=== PATIENT | female | born 1975 | race Two or more races ===

== ENCOUNTER 2020-03-16 13:29 | Emergency (ER) | payer MEDICAID, SELFPAY ==
[2020-03-16 14:10] VITALS: BP 139/85; PULSE 92; RESP 16; TEMP 36.6; O2SAT 99; BMI 48.2
--- NOTE | 2020-03-16 14:29 | ED.DENTAL ---
HPI - Dental/Oral General Chief complaint: Dental/Oral Stated complaint: dental pain Time Seen by Provider: 03/16/20 14:29 History of Present Illness HPI Narrative: Patient complains of pain at the site of a dental extraction of 2 teeth 1 week ago and pain continues, no fever no difficulty swallowing no difficulty breathing The pain is moderate Related Data Previous Rx's Medication Instructions Recorded clindamycin HCl 300 mg PO Q6H 7 Days #28 cap 03/16/20 oxycodone-acetaminophen [Percocet] 1 - 2 tab PO Q6H PRN #14 tab 03/16/20 Allergies Allergy/AdvReac Type Severity Reaction Status Date / Time No Known Allergies Allergy Unverified 01/19/20 18:58 [No Known Allergies*] Review of Systems Review of Systems: Review of system is positive for dental pain and swelling There is no difficulty breathing no difficulty swallowing no swelling under the tongue no fever no chills no rash Yes all other systems are reviewed and are negative PMFSH Past Medical History Source: nursing notes reviewed Medical History (Updated 03/16/20 @ 14:31 by SADE Mccauley) FH: cholecystectomy HTN (hypertension) Kidney anomaly, congenital Surgical History (Updated 03/16/20 @ 14:15 by Perla Zambrano) Previous section Social History Social History Advance Directives: Yes Advance Directives Information Provided: No Advance Directives on File: No Physical Exam Vital Signs: Vital Signs: Last Vital Signs Temp 97.8 F 03/16/20 14:10 Pulse 92 03/16/20 14:10 Resp 16 03/16/20 14:10 BP 139/85 03/16/20 14:10 Pulse Ox 99 03/16/20 14:10 Body Mass Index 48.2 Patient A&O x3, no acute distress The oral exam there is no trismus there is no impairment of breathing and swallowing there is no drooling there are sutures in place in the left lower gum where 2 teeth were extracted there is mild swelling it is very tender, there is no swelling or tenderness under the tongue there is no area of fluctuance on the gum no visible abscess there is normal range of motion of the mandible The neck is supple No acute respiratory distress Extremities full range of motion x4 Neuro no focal deficit Course Course Course Narrative: Patient continues to have pain and some swelling a week after extraction I changed her antibiotic to clindamycin but advised her that she may need further dental imaging and evaluation to make sure there is no abscess or tooth fragments that could be causing this pain Discharge Plan Discharge Clinical Impression: Pain, dental Patient Disposition: Home, Self-Care Additional Instructions: We are trying a different antibiotic clindamycin You may need to follow with the dentist for further evaluation, at times if pain continues there may be a piece of tooth left under the gum and you may need repeat dental x-rays, so follow with her dentist Return to the ER any time for worse pain and swelling, fever, difficulty swallowing or breathing or any worse condition or any concerns Prescriptions: New clindamycin HCl 300 mg capsule 300 mg PO Q6H 7 Days Qty: 28 RF: 0 oxycodone-acetaminophen [Percocet] 5-325 mg tablet 1 - 2 tab PO Q6H PRN (Reason: pain) Qty: 14 RF: 0 Interventions: ED Discharge Assessment Last Done: 03/16/20 14:49 Discharge Date/Time: 03/16/20 14:45
== END 2020-03-16 14:45 | disposition home or self-care (01) ==
PROVIDERS: Emergency Provider Emergency Medicine
DX: K08.89 Other specified disorders of teeth and supporting structures (principal); I10 Essential (primary) hypertension; Z79.899 Other long term (current) drug therapy
CPT/HCPCS: 99282; 99283

== ENCOUNTER 2020-06-19 09:26 | Outpatient (REF) | payer MEDICAID, SELFPAY ==
[2020-06-19 14:18] LABS: Anion Gap 12 (12-20); Blood Urea Nitrogen 8 mg/dL (9-16); Calcium 8.7 mg/dL (8.4-10.2); Carbon Dioxide 24 mmol/L (22-29); Chloride 106 mmol/L (96-108); Estimated Glomerular Filt Rate > 60; Potassium 4.3 mmol/L (3.3-5.1); Sodium 138 mmol/L (135-145)
[2020-06-19 14:25] LABS: Creatinine Urine 170.79 mg/dL; Microalbum/Creatinine Ratio Ur 21.6 ug/mg cr
[2020-06-19 14:47] LABS: Renal w Reflex Lab Use Only Order verified
[2020-06-19 14:56] LABS: Phosphorus 3.1 mg/dL (2.7-4.5)
== END 2020-06-19 09:27 | disposition home or self-care (01) ==
LOC: HO.10HDL 09:26
PROVIDERS: Visit Provider Internal Medicine Nephrology
DX: I10 Essential (primary) hypertension (principal); R80.9 Proteinuria, unspecified; Q60.0 Renal agenesis, unilateral
CPT/HCPCS: 36415; 80051; 82043; 82310; 82565; 84100; 84520

== ENCOUNTER 2021-04-16 10:57 | Outpatient (REF) | payer MEDICAID, SELFPAY ==
--- NOTE | ~2021-04-16 | MM_ITS ---
EXAMINATION: MM SCREENING DIGITAL BREAST TOMOSYNTHESIS, BILATERAL CLINICAL INFORMATION: Screening. Asymptomatic. The lifetime risk of breast cancer based on the Tyrer-Cuzick Model is 13%. COMPARISON: Mammography: 11/30/2019, 09/15/2018, 09/04/2017; bilateral breast ultrasound 07/23/2015. TECHNIQUE: Digital breast tomosynthesis is performed in both the craniocaudal and mediolateral oblique views along with computer-aided detection (CAD). Synthesized 2D images are generated from the tomosynthesis. FINDINGS: There are scattered areas of fibroglandular density (ACR BI-RADS breast composition Category b). Parenchymal pattern is similar to prior studies. There is fine fibronodular pattern with scattered stable nodularity. There are 2 stable circumscribed masses mid lower inner and mid central 9:00 left breast. There is no developing density. No abnormal calcifications. The axilla and skin contours are unremarkable. MM/MM tomosynthesis screening BI IMPRESSION: No significant changes from prior exams. ASSESSMENT: BI-RADS 2: Benign RECOMMENDATION: Routine annual mammography screening. This patient's information was entered into a reminder system with a target due date for their next mammogram.
== END 2021-04-16 10:58 | disposition home or self-care (01) ==
LOC: HO.MAMMO 10:57
PROVIDERS: PCP Internal Medicine; Visit Provider Internal Medicine
DX: Z12.31 Encounter for screening mammogram for malignant neoplasm of breast (principal)
CPT/HCPCS: 77063; 77067

== ENCOUNTER 2021-05-30 12:19 | Emergency (ER) | payer MEDICAID, SELFPAY ==
[2021-05-30 12:35] VITALS: BP 135/69; PULSE 78; RESP 18; TEMP 36.8; O2SAT 100
[2021-05-30 12:44] VITALS: BMI 49.9
[2021-05-30 13:08] LABS: MANUAL DIFF FLAG NO
[2021-05-30 13:10] LABS: Appearance Urine CLEAR; Color Urine STRAW; Glucose Urine UA NEG (NEG); Leukocyte Esterase Urine NEG (NEG); Nitrite Urine NEG (NEG); Urine Blood NEG (NEG); Urine Ketones NEG (NEG); Urine Protein NEG (NEG-TRACE)
[2021-05-30 13:17] LABS: Basophils Percent Auto 0.4 % (0-2); Eosinophils Absolute Auto 0.1 X10*3/uL (0.0-0.4); Hematocrit 39.1 % (37.0-47.0); Hemoglobin 13.1 g/dl (12.0-16.0); Imm Gran Abs Auto 0.03 X10*3/uL (0.00-0.03); Imm Gran Pct Auto 0.3 % (0.0-0.4); Lymphocytes Absolute Auto 2.5 X10*3/uL (1.2-4.9); Lymphocytes Percent Auto 26.4 % (20-40); Mean Corpuscular HGB Conc 33.5 g/dl (31.0-35.0); Mean Corpuscular Hemoglobin 28.8 pg (27.0-33.0); Mean Corpuscular Volume 85.9 fL (80.0-98.0); Mean Platelet Volume 9.5 fL (9.4-12.3); Monocytes Absolute Auto 0.7 X10*3/uL (0.1-1.2); Monocytes Percent Auto 7.4 % (2-11); Neutrophils Absolute Auto 6.1 x10*3/uL (2.0-8.3); Neutrophils Percent Auto 64.5 % (45-73); Platelet Count 281 X10*3/uL (160-400); Red Blood Count 4.55 X10*6/uL (4.20-5.50); Red Cell Distribution Width 13.2 % (11.0-16.0); White Blood Count 9.4 X10*3/uL (4.8-10.8)
[2021-05-30 13:28] LABS: Alanine Aminotransferase 25 U/L (0-31); Albumin Level 4.1 g/dL (3.5-5.0); Alkaline Phosphatase 90 U/L (39-117); Anion Gap 13 (12-20); Aspartate Amino Transferase 19 U/L (5-31); Bilirubin Total 0.4 mg/dL (0.0-1.0); Blood Urea Nitrogen 14 mg/dL (9-16); Carbon Dioxide 22 mmol/L (22-29); Chloride 105 mmol/L (96-108); Creatinine Clr Calc Pharmacy 115.8; Estimated Glomerular Filt Rate > 60; Glucose Random 94 mg/dL (60-115); Potassium 4.1 mmol/L (3.3-5.1); Sodium 136 mmol/L (135-145); Total Protein 7.7 g/dL (6.5-8.0)
--- NOTE | 2021-05-30 15:19 | ED_ITS ---
HPI - General Adult General Chief complaint: Back Pain/Injury Stated complaint: back pain Time Seen by Provider: 05/30/21 15:09 Source: patient Mode of arrival: ambulatory Limitations: no limitations History of Present Illness HPI narrative: Patient comes to emergency room complaining of bilateral lower back pain. Patient states he has had multiple episodes in the past, at this time patient has no pain, patient denies dysuria or hematuria. Patient denies any recent injuries, no falls. Patient denies fever chills. Related Data Previous Rx's Medication Instructions Recorded clindamycin HCl 300 mg capsule 300 mg PO Q6H 7 Days #28 cap 03/16/20 oxycodone-acetaminophen 5 mg-325 1 - 2 tab PO Q6H PRN #14 tab 03/16/20 mg tablet (Percocet) cyclobenzaprine 5 mg tablet 5 mg PO TID PRN #10 tab 05/30/21 Allergies Allergy/AdvReac Type Severity Reaction Status Date / Time No Known Allergies Allergy Verified 05/30/21 12:44 [No Known Allergies*] Review of Systems Verdana 4l Review of Systems: Verdana 4d Verdana 4d Constitutional : No Weight loss, No Fever, No Chills, No Night Sweats, No Fatigue, No Malaise ENT/Mouth : No Hearing loss, No Ear Pain, No Nasal Congestion, No Sinus Pain, No Hoarseness, No sore throat, No Rhinorrhea, No Swallowing DifficultyDifficulty Eyes: No Eye Pain, No Swelling, No Redness, No Foreign Body, No Discharge, No Vision Changes Cardiovascular : No Chest Pain, No SOB, No Dyspnea on Exertion, No Orthopnea, No Edema, No Palpitations Respiratory : No Cough, No Sputum, No Wheezing, No Smoke Exposure, No Dyspnea Gastrointestinal : No Nausea, No Vomiting, No Diarrhea, No Constipation, No abdominal Pain, No Hematochezia, No Melena Genitourinary : no irregular bleeding, No Dysuria, No Urinary Frequency, No Hematuria, No Urinary Incontinence, No Urgency, No Flank Pain, No Urinary Flow Changes, No Hesitancy Musculoskeletal : No joint pain, complaining of bilateral middle and lower back pain, No Joint Swelling Skin : No Skin Lesions, No rash Neuro : No Weakness, No Numbness, No Paresthesias, No Loss of Consciousness, No Dizziness, No Headache Psych : No Anxiety/Panic, No Depression, No SI/HI/AH/VH, No Social Issues, Heme/Lymph: No Bruising, No Bleeding,No Lymphadenopathy Endocrine : No Polyuria, No Polydipsia, No Temperature Intolerance [facility] Past Medical History Medical History FH: cholecystectomy HTN (hypertension) Kidney anomaly, congenital Surgical History Previous section Social History Social History Alcohol intake: never Smoked in Last 30 Days: No Use of substances other than those prescribed or required for medical reasons: No Advance Directives: No Advance Directives Information Provided: No Physical Exam Verdana 4l Vital Signs: Verdana 4d Verdana 4d Vital Signs: Verdana 4d Verdana 4Bd Last Vital Signs Verdana 4d Personal Counselor New 4d Personal Counselor New 4d Temp 98.2 F 05/30/21 12:35 Personal Counselor New 4d Pulse 78 05/30/21 12:35 Personal Counselor New 4d Resp 18 05/30/21 12:35 BP 135/69 05/30/21 12:35 Pulse Ox 100 05/30/21 12:35 BMI result Body Mass Index 49.9 Const: Other: Appearance: Alert. Oriented X3. No acute distress. Well-appearing Eyes: Pupils equal, round and reactive to light. ENT: Pharynx normal. Neck: Normal inspection. Neck supple. No lymph nodes noted. No crepitus CVS: Normal heart rate and rhythm. Pulses normal. Normal S1 and S2 Respiratory: No respiratory distress. Breath sounds normal. No Wheezing. No rales Abdomen: Soft and nontender. No rigidity. No distention. Back: Pain to palpation in bilateral sides of the back middle and upper back Skin: Skin warm and dry. Normal skin color. Normal skin turgor. Extremities: No lower extremity edema. no Lacerations. No Rash Neuro: Oriented X 3. No motor deficit. No sensory deficit. Moving all extermities. No slurred speech. Course Course Course Narrative: I discussed the labs with the patient, no acute findings. Patient likely having muscular spasms. Patient declined pain medication but will take muscle relaxants Medical Decision Making Lab Data Result diagrams: 05/30/21 12:59 05/30/21 12:59 Labs: Lab Results 0105/30/21 05/30/21 Range/Units 12:59 12:59 12:59 WBC 9.4 (4.8-10.8) X10*3/uL RBC 4.55 (4.20-5.50) X10*6/uL Hgb 13.1 (12.0-16.0) g/dl Hct 39.1 (37.0-47.0) % MCV 85.9 (80.0-98.0) fL MCH 28.8 (27.0-33.0) pg MCHC 33.5 (31.0-35.0) g/dl RDW 13.2 (11.0-16.0) % Plt Count 281 (160-400) X10*3/uL MPV 9.5 (9.4-12.3) fL Immature Gran % (Auto) 0.3 (0.0-0.4) % Neut % (Auto) 64.5 (45-73) % Lymph % (Auto) 26.4 (20-40) % Lea % (Auto) 7.4 (2-11) % Eos % (Auto) 1.0 (0-4) % Baso % (Auto) 0.4 (0-2) % Lymph # (Auto) 2.5 (1.2-4.9) X10*3/uL [place] # (Auto) 0.7 (0.1-1.2) X10*3/uL Eos # (Auto) 0.1 (0.0-0.4) X10*3/uL Baso # (Auto) 0.0 (0.0-0.2) X10*3/uL Abs Immat Gran (auto) 0.03 (0.00-0.03) X10*3/uL Absolute Neuts (auto) 6.1 (2.0-8.3) x10*3/uL Absolute Nucleated RBC 0.000 (0.0-0.012) X10*3/uL Nucleated RBC % (auto) 0.0 (0.0-0.2) /100WBC Sodium 136 (135-145) mmol/L Potassium 4.1 (3.3-5.1) mmol/L Chloride 105 (96-108) mmol/L Carbon Dioxide 22 (22-29) mmol/L Anion Gap 13 (12-20) BUN 14 (9-16) mg/dL Creatinine 0.84 (0.5-1.4) mg/dL Estim Creat Clear Calc 115.8 Estimated GFR > 60 Random Glucose 94 (60-115) mg/dL Calcium 10.0 D (8.4-10.2) mg/dL Total Bilirubin 0.4 (0.0-1.0) mg/dL AST 19 (5-31) U/L ALT 25 (0-31) U/L Alkaline Phosphatase 90 (39-117) U/L Total Protein 7.7 (6.5-8.0) g/dL Albumin 4.1 (3.5-5.0) g/dL Urine Color STRAW Urine Appearance CLEAR Urine pH 6.0 (5.0-8.0) Ur Specific [place] 1.020 (1.005-1.025) Urine Protein NEG (NEG-TRACE) MG/DL Urine Glucose (UA) NEG (NEG) MG/DL Urine Ketones NEG (NEG) MG/DL Urine Blood NEG (NEG) Urine Nitrite NEG (NEG) Ur Leukocyte Esterase NEG (NEG) Discharge Plan Discharge Clinical Impression: Back pain Patient Disposition: Home, Self-Care Instructions: Back Pain (ED) Additional Instructions: Please follow-up with your primary care physician tomorrow. If you have any worsening or new symptoms, please return to the emergency room or call 911 Prescriptions: New cyclobenzaprine 5 mg tablet 5 mg PO TID PRN (Reason: muscle spasm) Qty: 10 0RF No Action clindamycin HCl 300 mg capsule 300 mg PO Q6H 7 Days Qty: 28 0RF oxycodone-acetaminophen [Percocet] 5-325 mg tablet 1 - 2 tab PO Q6H PRN (Reason: pain) Qty: 14 0RF
[2021-05-30 15:27] VITALS: BP 115/65; PULSE 75; RESP 18; TEMP 36.9; O2SAT 99
== END 2021-05-30 16:11 | disposition home or self-care (01) ==
PROVIDERS: Emergency Provider Emergency Medicine; PCP Internal Medicine
DX: M54.50 Low back pain, unspecified (principal); I10 Essential (primary) hypertension
CPT/HCPCS: 36415; 80053; 81003; 85025; 99283; 99284

== ENCOUNTER 2021-06-08 08:37 | Observation (INO) | payer MEDICAID, SELFPAY ==
--- NOTE | ~2021-06-08 | CT_ITS ---
EXAMINATION: CT ABDOMEN AND PELVIS WITH CONTRAST CLINICAL INFORMATION: Epigastric pain radiating to the back. COMPARISON: CT of the abdomen and pelvis done on 02/23/2018. TECHNIQUE: Multidetector volumetric images were obtained from the superior aspect of the liver through the pubic symphysis following administration 85 mL of Omnipaque 350 intravenous contrast. Sagittal and coronal reformatted images were obtained on the technologist's workstation. Oral contrast: No This CT examination was performed using dose optimization techniques as appropriate, variously including the following: *Automated exposure control *Adjustment of mA and/or kV according to patient size (this includes techniques or standardized protocols for targeted exams where dose is matched to indication/reason for exam; i.e. extremities or head) *Use of iterative reconstruction technique DLP: 1317.54 mGy-cm FINDINGS: LUNG BASES: The visualized lung bases are unremarkable. LIVER, GALLBLADDER, AND BILIARY TREE: Mild diffuse hepatic hypodensity consistent with hepatic steatosis is present. Multiple surgical clips are noted around the gallbladder bed. There is a fluid containing structure identified which may represent residual prominent cystic duct versus residual gallbladder. Please correlate clinically. Appearance is similar to prior study. No evidence of any biliary ductal dilatation. PANCREAS: Unremarkable. SPLEEN: Unremarkable. ADRENAL GLANDS: Unremarkable. KIDNEYS AND URETERS: The left kidney is not visualized, either congenital or surgically absent, similar to prior study. The right kidney is hypertrophied and is morphologically unremarkable, unchanged. BLADDER: Suboptimally distended, unremarkable. GASTROINTESTINAL TRACT: Multiple postsurgical changes are noted within the left mid small bowel loops, similar to prior study. The remainder of the small or large bowel loops otherwise appear unremarkable. The stomach is decompressed. ABDOMINAL WALL: Fat only containing periumbilical hernia is noted, unchanged. LYMPH NODES: There are no pathologically enlarged retroperitoneal and/or mesenteric, pelvic or groin lymphadenopathy present. VASCULAR: Unremarkable. PELVIC VISCERA: There is no pelvic mass present. No evidence of any free fluid and/or free air present. No significant change. OSSEOUS STRUCTURES: Degenerative disc disease at L5-S1. CT/CT abdomen pelvis w con IMPRESSION: No CT evidence of any acute intra-abdominal or intrapelvic pathology, essentially remains unchanged since 02/23/2018.
--- NOTE | ~2021-06-08 | XR_ITS ---
EXAMINATION: XR CHEST CLINICAL INFORMATION: Epigastric abdominal pain COMPARISON: Chest x-rays of 06/20/2017 and 06/04/2017. Selected images of the abdominal and pelvic CT scan of from 06/08/2021 TECHNIQUE: Frontal view of the chest was obtained. FINDINGS: The cardiomediastinal silhouette is normal. No abnormal tracheal deviation. The lungs are symmetrically well expanded. No focal consolidation, changes of congestion or pleural effusions are seen. No pneumothorax. No evidence of free subdiaphragmatic air. XR/XR chest 1V IMPRESSION: No radiographic evidence of pneumonia. No acute pulmonary process. No evidence of free subdiaphragmatic air.
[2021-06-08 08:57] VITALS: BP 127/69; PULSE 94; RESP 16; TEMP 36.8; O2SAT 99; BMI 49.9
--- NOTE | 2021-06-08 09:14 | ED_ITS ---
HPI - Abdominal Pain General Chief Complaint: Abdominal Pain Stated Complaint: abd pressure Time Seen by Provider: 06/08/21 09:12 Source: patient Mode of arrival: ambulatory Limitations: language barrier History of Present Illness HPI narrative: 46-year-old female presents with 2 days of epigastric pain radiating to her back. She is nauseous. The epigastric pain also radiates up into her chest. No vomiting or diarrhea, no fever. Patient had COVID booster yesterday. The pain is an 8/10, and feels like a tight squeezing pain that radiates to her back. The pain is not worse with eating. The pain is intermittent, and is worse when she is laying down. The radiation up into her chest started at midnight last night. Endorses a history of GERD Patient was born with 1 kidney, she cannot have NSAIDs, has not taken NSAIDs. Does not drink alcohol, no history of pancreatitis. Eight years ago in [place], patient had a laparoscopic cholecystectomy where her bile duct was perforated and she had to have a reconstructed bile duct. No shortness of breath, lightheadedness, palpitations, dark tarry or bloody stools, urinary tract symptoms. Last menstrual period 06/03/2021 Patient is seen here for back pain 2 weeks ago MD elicited complaint: abdominal pain Onset (ago): day(s) (2) Pain Consistency: intermittent Location: epigastric Severity: severe Quality: other (squeezing) Radiation: back Migration to: no migration Exacerbating factors: other (lying flat) Associated symptoms: nausea and other (bloating) Related Data Previous Rx's Medication Instructions Recorded clindamycin HCl 300 mg capsule 300 mg PO Q6H 7 Days #28 cap 03/16/20 oxycodone-acetaminophen 5 mg-325 1 - 2 tab PO Q6H PRN #14 tab 03/16/20 mg tablet (Percocet) cyclobenzaprine 5 mg tablet 5 mg PO TID PRN #10 tab 05/30/21 aluminum-mag hydroxide-simethicone 10 ml PO Q6H PRN #3000 ml 06/08/21 200 mg-200 mg-20 mg/5 mL oral susp (Maalox Advanced) lidocaine HCl 2 % mucosal solution 1 appl MUCOUS MEMBRANE TID PRN 06/08/21 (Lidocaine Viscous) #100 ml omeprazole 40 mg capsule,delayed 40 mg PO DAILY #30 cap 06/08/21 release Allergies Allergy/AdvReac Type Severity Reaction Status Date / Time No Known Allergies Allergy Verified 05/30/21 12:44 [No Known Allergies*] Review of Systems Constitutional: Denies body ache(s), Denies chills, Denies fatigue, Denies fever(s), Denies headache(s), Denies malaise and Denies weakness Eyes: Denies diplopia Denies vertigo, Denies dizziness, Denies otalgia, Denies headache(s), Denies mouth pain, Denies post nasal drip, Denies sinus pain, Denies sinus pressure, Denies sore throat and Denies throat swelling Cardiovascular: Denies chest pain, Denies syncope, Denies leg edema, Denies lightheadedness, Denies Loss of Consciousness, Denies palpitations and Denies dyspnea Respiratory: Denies chest congestion, Denies cough and Denies dyspnea Gastrointestinal: Reports abdominal pain, Denies hematochezia, Denies constipation, Denies diarrhea, Reports nausea and Denies vomiting Musculoskeletal: Reports no additional musculoskeletal complaints Denies confusion, Denies vertigo, Denies dizziness, Denies syncope, Denies headache(s) and Denies weakness Psychiatric: Denies anxiety, Denies confusion and Denies depression Endocrine: Denies fatigue and Denies palpitations Allergic/Immunologic: Denies throat swelling Physical Exam Verdana 4l Vital Signs: Verdana 4d Verdana 4d Vital Signs: Verdana 4d Verdana 4Bd Last Vital Signs Verdana 4d Bus Driver Supervisor 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 4d Bus Driver Supervisor New 4d Temp 99.0 F 06/08/21 14:26 Bus Driver Supervisor New 4d Pulse 82 06/08/21 14:26 Bus Driver Supervisor New 4d Resp 18 06/08/21 15:32 BP 132/72 06/08/21 14:26 Pulse Ox 100 06/08/21 14:26 BMI result Body Mass Index 49.9 Const: General: alert, awake and acute distress mild (pain); No confusion Nutritional Appearance: obese morbidly obese Orientation/consciousness: patient oriented x3 and No confusion Limitations: language barrier HENMT: Head: Yes normal to inspection, Yes normocephalic and Yes atraumatic Ears: hearing grossly normal bilaterally, external ears normal, TM's normal bilaterally and EAC's normal General nose exam: Normal external nose present Face and sinus: Yes normal facial exam and Yes sinuses nontender Mouth: Normal oral and palatal mucosa present Throat: Yes posterior oropharynx normal Eyes: Conjunctivae: conjunctivae normal Pupils: Equal, round and reactive pupils present EOM: EOMs intact bilaterally Neck: Neck: Yes full ROM, Yes no lymphadenopathy and Yes supple Resp: Effort & Inspection: normal respiratory effort and able to speak in complete sentences Auscultation: clear to auscultation bilaterally, no crackles, no rales, no rhonchi and no wheezes Cardio: Rate: regular rate Rhythm: regular rhythm Heart sounds: S1 normal heart sound present and S2 normal heart sound present GI: Inspection: Yes distended, Yes obesity, Yes scar and Yes striae Palpation (G I): Soft to palpation, Tenderness to palpation present (GI) in the epigastrum, Guarding due to palpation present (GI) other (epigastric) and not rigid Percussion: Yes normal to percussion Auscultation: normal bowel sounds : General: Yes no CVA tenderness Back/Spine/Pelvis: Other: Tender to palpation soft tissues right and left thoracic Back: no CVA tenderness Cervical Spine: normal cervical lordosis, cervical ROM normal and No Cervical spine tenderness Thoracic/Lumbar Spine: No thoracic spinal tenderness and No lumbar spinal tenderness Skin: General skin exam: no rashes or lesions noted Neuro: General: patient oriented x3 and No confusion Cranial nerves: Yes Equal, round and reactive pupils present Extrem: General: Yes normal to inspection and Yes full ROM Psych: Appearance: grossly normal Affect: normal affect Attitude: cooperative Thought process: Normal thought process present Course Course Course Narrative: 46-year-old female with epigastric pain radiating to her back and up into her est. Patient has had 2 days of this pain, and chest radiation started 12 hours ago. On exam, patient is obese, with stable vitals, tender and mild guarding in her epigastrium. EKG shows no ischemia, troponin is negative, labs are unremarkable, lipase is not elevated, patient is not , COVID negative, urine shows hematuria. Gave fluids, Zofran, morphine, awaiting CT results. Reevaluation(s) Reevaluation #1: CT/CT abdomen pelvis w con IMPRESSION: No CT evidence of any acute intra-abdominal or intrapelvic pathology, essentially remains unchanged since 02/23/2018. On re-exam, pt still has pain, cannot eat d/t pain, is nauseous Will try GI cocktail of maalox and viscous lidocaine, and pepcid. Time: 13:03 Reevaluation #2: On re-exam, pt is not feeling better. Cannot eat due to pain. Still severe epigastric pain despite morphine and GI cocktail. Paging GARETH Box, for dispo consult CT scan noted unremarkable vasculature, but will order CXR to evaluate mediastinum Reevaluation #3: Consulted Dr Cardenas GI, said he would evaluate pt tomorrow if she is admitte d, possible endoscope on Thursday Dr Patel will admit pt MDM - Abdominal Pain Medical Records Attestation: I reviewed the patient's medical records. Lab Data Attestation: I reviewed the patient's lab results. Result diagrams: 06/08/21 10:58 06/08/21 10:58 Labs: Lab Results 06/08/21 06/08/21 06/08/21 Range/Units 10:58 10:58 10:58 WBC 7.4 (4.8-10.8) X10*3/uL RBC 4.33 (4.20-5.50) X10*6/uL Hgb 12.4 (12.0-16.0) g/dl Hct 37.8 (37.0-47.0) % MCV 87.3 (80.0-98.0) fL MCH 28.6 (27.0-33.0) pg MCHC 32.8 (31.0-35.0) g/dl RDW 13.2 (11.0-16.0) % Plt Count 296 (160-400) X10*3/uL MPV 9.1 L (9.4-12.3) fL Immature Gran % (Auto) 0.5 H (0.0-0.4) % Neut % (Auto) 79.3 H (45-73) % Lymph % (Auto) 12.3 L (20-40) % [place] % (Auto) 6.4 (2-11) % Eos % (Auto) 1.1 (0-4) % Baso % (Auto) 0.4 (0-2) % Lymph # (Auto) 0.9 L (1.2-4.9) X10*3/uL [place] # (Auto) 0.5 (0.1-1.2) X10*3/uL Eos # (Auto) 0.1 (0.0-0.4) X10*3/uL Baso # (Auto) 0.0 (0.0-0.2) X10*3/uL Abs Immat Gran (auto) 0.04 H (0.00-0.03) X10*3/uL Absolute Neuts (auto) 5.9 (2.0-8.3) x10*3/uL Absolute Nucleated RBC 0.000 (0.0-0.012) X10*3/uL Nucleated RBC % (auto) 0.0 (0.0-0.2) /100WBC Sodium 139 (135-145) mmol/L Potassium 4.6 (3.3-5.1) mmol/L Chloride 106 (96-108) mmol/L Carbon Dioxide 26 (22-29) mmol/L Anion Gap 12 (12-20) BUN 10 (9-16) mg/dL Creatinine 0.84 (0.5-1.4) mg/dL Estim Creat Clear Calc 115.8 Estimated GFR > 60 Random Glucose 106 (60-115) mg/dL Calcium 9.3 D (8.4-10.2) mg/dL Total Bilirubin 0.8 (0.0-1.0) mg/dL AST 17 (5-31) U/L ALT 20 (0-31) U/L Alkaline Phosphatase 87 (39-117) U/L Troponin I High Sens < 3.5 (<3.5-17.0) ng/L Total Protein 7.1 (6.5-8.0) g/dL Albumin 3.9 (3.5-5.0) g/dL Lipase 12 (8-78) U/L Beta HCG, Quant < 2 mIU/mL Urine Color Urine Appearance Urine pH (5.0-8.0) Ur Specific [place] (1.005-1.025) Urine Protein (NEG-TRACE) MG/DL Urine Glucose (UA) (NEG) MG/DL Urine Ketones (NEG) MG/DL Urine Blood (NEG) Urine Nitrite (NEG) Ur Leukocyte Esterase (NEG) Urine RBC (0) /HPF Urine WBC (0-4) /HPF Ur Squamous Epith Cells /LPF Urine Bacteria /LPF Urine Mucus /LPF Urine Test (NEGATIVE) COVID-19 ([facility]) (Negative) COVID-19 Clin Com 06/08/21 06/08/21 06/08/21 Range/Units 10:58 10:58 10:59 WBC (4.8-10.8) X10*3/uL RBC (4.20-5.50) X10*6/uL Hgb (12.0-16.0) g/dl Hct (37.0-47.0) % MCV (80.0-98.0) fL MCH (27.0-33.0) pg MCHC (31.0-35.0) g/dl RDW (11.0-16.0) % Plt Count (160-400) X10*3/uL MPV (9.4-12.3) fL Immature Gran % (Auto) (0.0-0.4) % Neut % (Auto) (45-73) % Lymph % (Auto) (20-40) % [place] % (Auto) (2-11) % Eos % (Auto) (0-4) % Baso % (Auto) (0-2) % Lymph # (Auto) (1.2-4.9) X10*3/uL [place] # (Auto) (0.1-1.2) X10*3/uL Eos # (Auto) (0.0-0.4) X10*3/uL Baso # (Auto) (0.0-0.2) X10*3/uL Abs Immat Gran (auto) (0.00-0.03) X10*3/uL Absolute Neuts (auto) (2.0-8.3) x10*3/uL Absolute Nucleated RBC (0.0-0.012) X10*3/uL Nucleated RBC % (auto) (0.0-0.2) /100WBC Sodium (135-145) mmol/L Potassium (3.3-5.1) mmol/L Chloride (96-108) mmol/L Carbon Dioxide (22-29) mmol/L Anion Gap (12-20) BUN (9-16) mg/dL Creatinine (0.5-1.4) mg/dL Estim Creat Clear Calc Estimated GFR Random Glucose (60-115) mg/dL Calcium (8.4-10.2) mg/dL Total Bilirubin (0.0-1.0) mg/dL AST (5-31) U/L ALT (0-31) U/L Alkaline Phosphatase (39-117) U/L Troponin I High Sens (<3.5-17.0) ng/L Total Protein (6.5-8.0) g/dL Albumin (3.5-5.0) g/dL Lipase (8-78) U/L Beta HCG, Quant mIU/mL Urine Color YELLOW Urine Appearance CLEAR Urine pH 6.0 (5.0-8.0) Ur Specific [place] 1.025 (1.005-1.025) Urine Protein NEG (NEG-TRACE) MG/DL Urine Glucose (UA) NEG (NEG) MG/DL Urine Ketones NEG (NEG) MG/DL Urine Blood 3+ H (NEG) Urine Nitrite NEG (NEG) Ur Leukocyte Esterase NEG (NEG) Urine RBC 5-9 H (0) /HPF Urine WBC 0-2 (0-4) /HPF Ur Squamous Epith Cells TRACE /LPF Urine Bacteria TRACE /LPF Urine Mucus TRACE /LPF Urine Test NEGATIVE (NEGATIVE) COVID-19 ([facility]) Negative (Negative) COVID-19 Clin Com See Note ECG Data Interpretation: Normal sinus at a rate of 83, NV interval 172, QRS 82, QTC 430, mild left axis deviation, no ST depressions or elevations, no T-wave abnormalities Discharge Plan Discharge Clinical Impression: Acute epigastric pain Patient Disposition: Admitted As Inpatient [facility] Past Medical History Medical History FH: cholecystectomy HTN (hypertension) Kidney anomaly, congenital Surgical History Previous section Social History Social History Alcohol intake: never Advance Directives: No Advance Directives Information Provided: No
--- NOTE | 2021-06-08 09:46 | ECG_ITS ---
Test Reason : ABD PAIN Blood Pressure : / mmHG Vent. Rate : 083 BPM Atrial Rate : 083 BPM P-R Int : 172 ms QRS Dur : 082 ms QT Int : 366 ms P-R-T Axes : 044 -09 024 degrees QTc Int : 430 ms Normal sinus rhythm Minimal voltage criteria for LVH, may be normal variant ( R in aVL ) Borderline ECG When compared with ECG of 07-OCT-2017 11:01, No significant change was found Referred By: Sharon Mccoy Electronically Signed By:MELY MEJIA
[2021-06-08 09:51] VITALS: BP 130/68; PULSE 79; RESP 16; TEMP 37.2; O2SAT 99
[2021-06-08 10:17] VITALS: RESP 16
[2021-06-08] MEDS: ondansetron HCL 4 MG/2 ML VIAL IVPUSH (10:17)
[2021-06-08] MEDS: Morphine Sulfate 4 MG/ML CARTRIDGE IVPUSH ×2 (10:17→15:32)
[2021-06-08] MEDS: 0.9 % Sodium Chloride 1,000 ML 999 ML IV (10:17)
[2021-06-08 11:06] LABS: MANUAL DIFF FLAG NO
[2021-06-08 11:12] LABS: Basophils Percent Auto 0.4 % (0-2); Eosinophils Absolute Auto 0.1 X10*3/uL (0.0-0.4); Eosinophils Percent Auto 1.1 % (0-4); Hematocrit 37.8 % (37.0-47.0); Hemoglobin 12.4 g/dl (12.0-16.0); Imm Gran Abs Auto 0.04 X10*3/uL (0.00-0.03); Imm Gran Pct Auto 0.5 % (0.0-0.4); Lymphocytes Absolute Auto 0.9 X10*3/uL (1.2-4.9); Lymphocytes Percent Auto 12.3 % (20-40); Mean Corpuscular HGB Conc 32.8 g/dl (31.0-35.0); Mean Corpuscular Hemoglobin 28.6 pg (27.0-33.0); Mean Corpuscular Volume 87.3 fL (80.0-98.0); Mean Platelet Volume 9.1 fL (9.4-12.3); Monocytes Absolute Auto 0.5 X10*3/uL (0.1-1.2); Monocytes Percent Auto 6.4 % (2-11); Neutrophils Absolute Auto 5.9 x10*3/uL (2.0-8.3); Neutrophils Percent Auto 79.3 % (45-73); Platelet Count 296 X10*3/uL (160-400); Red Blood Count 4.33 X10*6/uL (4.20-5.50); Red Cell Distribution Width 13.2 % (11.0-16.0); White Blood Count 7.4 X10*3/uL (4.8-10.8)
[2021-06-08 11:17] LABS: Appearance Urine CLEAR; Color Urine YELLOW; Glucose Urine UA NEG (NEG); Leukocyte Esterase Urine NEG (NEG); Nitrite Urine NEG (NEG); Specific Gravity - Urine 1.025 (1.005-1.025); UACC Culture Trigger NO; Urine Blood 3+ (NEG); Urine Ketones NEG (NEG); Urine Protein NEG (NEG-TRACE)
[2021-06-08 11:20] LABS: UPreg QC Valid YES; Urine Pregnancy NEGATIVE (NEGATIVE)
[2021-06-08 11:27] LABS: Alanine Aminotransferase 20 U/L (0-31); Albumin Level 3.9 g/dL (3.5-5.0); Alkaline Phosphatase 87 U/L (39-117); Anion Gap 12 (12-20); Aspartate Amino Transferase 17 U/L (5-31); Bacteria Urine TRACE /LPF; Bilirubin Total 0.8 mg/dL (0.0-1.0); Blood Urea Nitrogen 10 mg/dL (9-16); Calcium 9.3 mg/dL (8.4-10.2); Carbon Dioxide 26 mmol/L (22-29); Chloride 106 mmol/L (96-108); Creatinine Clr Calc Pharmacy 115.8; Estimated Glomerular Filt Rate > 60; Glucose Random 106 mg/dL (60-115); Lipase 12 U/L (8-78); Mucus Urine TRACE /LPF; Potassium 4.6 mmol/L (3.3-5.1); Sodium 139 mmol/L (135-145); Squamous Epithelial Cell Urine TRACE /LPF; Total Protein 7.1 g/dL (6.5-8.0); WBC Urine 0-2 /HPF (0-4)
[2021-06-08 11:33] LABS: HCG Quantitative < 2 mIU/mL; Troponin-I High Sensitivity < 3.5 ng/L (<3.5-17.0)
[2021-06-08 11:41] LABS: COVID-19 Test Negative (Negative)
[2021-06-08] MEDS: iohexoL 350 MG/ML 100 ML INFUS..BTL 85 ML IV (12:02)
[2021-06-08] MEDS: Famotidine 20 MG TABLET PO (14:10)
[2021-06-08] MEDS: Lidocaine HCl Viscous 2 % 15 ML SOLUTION MUCOUS MEM (14:10)
[2021-06-08] MEDS: Magnesium Hydrox/Alum Hydrox 30 ML ORAL.SUSP PO (14:10)
[2021-06-08 14:26] VITALS: BP 132/72; PULSE 82; RESP 14; TEMP 37.2; O2SAT 100
[2021-06-08 15:32] VITALS: RESP 18
--- NOTE | 2021-06-08 16:29 | P.HPHOSP_ITS ---
History of Present Illness Date of Service: 06/08/21 Chief Complaint: epigastric pain 46F presented with epigastric pain. pain is worse on deep breaths. associated with nausea no vomiting, started about 2 days prior to presentation after milk shake. has been unable to tolerate solid diet. in ED CT abd unremarkable. labs unremarkable. Review of Systems Verdana 4l Review of Systems: Verdana 4d Verdana 4d Constitutional: Denies fever, denies Chills Eyes: denies blurry vision ENT: denies sore throat CVS: denies chest pain Respiratory: Denies dyspnea GI: abdominal pain : denies dysuria MSK: denies neck pain Skin: denies rash Neuro: denies specific motor weakness Psych: denies suicidal ideation Endocrine: denies heat/cold intolerance Hematologic: denies easy bleeding Allergy: denies hives PMFSH Medical History FH: cholecystectomy HTN (hypertension) Kidney anomaly, congenital Pre-diabetes Family History Mother Diabetes Surgical History History of cholecystectomy Previous section Social History Alcohol intake: never Patient Tobacco Use Status: Never used Tobacco Use of substances other than those prescribed or required for medical reasons: No Advance Directives: No Advance Directives Information Provided: No Meds Allergies Allergy/AdvReac Type Severity Reaction Status Date / Time No Known Allergies Allergy Verified 05/30/21 12:44 [No Known Allergies*] Active Medications: Current Medications Enoxaparin Sodium (Enoxaparin Sodium 40 Mg/0.4 Ml Syringe) 40 mg SUBCUT Q24H [facility] Lactated Ringer's (Lr) 1,000 mls @ 80 mls/hr IVCONT .[id number] [facility] Lisinopril (Lisinopril 20 Mg Tablet) 20 mg PO BID [facility]; Protocol Morphine Sulfate (Morphine Sulfate 2 Mg/Ml Cartridge) 2 mg IVPUSH Q3H PRN; Protocol PRN Reason: moderate pain Omeprazole (Omeprazole 40 Mg Anastasia.) 40 mg PO DAILY@0630 [facility] Pharmacy Consult (Consult Rx Perform Med Rec) 1 each MISCELLANE ONCE PRN PRN Reason: Consult order Sodium Chloride (0.9 % Sodium Chloride Flush 3 Ml Syringe) 3 ml IVFLUSH QSHIFT [facility] Home Medications Medication Instructions Recorded Confirmed Last Taken Type cholecalciferol 1 tab PO DAILY 06/08/21 Unknown History (vitamin D3) 25 mcg (1,000 unit) tablet (Vitamin D3) lisinopril 20 mg 1 tab PO BID 06/08/21 Unknown History tablet Physical Exam Verdana 4l Vital Signs and Narrative: Verdana 4d Verdana 4d Vital Signs: Verdana 4d Verdana 4Bd Last Vital Signs Verdana 4d Application Software Developer New 4d Application Software Developer New 4d Temp 99.0 F 06/08/21 14:26 Application Software Developer New 4d Pulse 82 06/08/21 14:26 Application Software Developer New 4d Resp 18 06/08/21 15:32 BP 132/72 06/08/21 14:26 Pulse Ox 100 06/08/21 14:26 BMI result Body Mass Index 49.9 General: no acute distress HEENT: atraumatic Neck: normal to visual inspection CVS: S1, S2, RRR Resp: CTA bilateral Chest: non tender GI: soft, epigastric tender, non distended : no CVA tenderness Skin: no rashes Extremities: no edema Neuro: Oriented X3, grossly intact Psych: cooperative Results Labs CBC and Chem 7: 06/08/21 10:58 06/08/21 10:58 Labs: Laboratory Results - last 24 hr 06/08/21 06/08/21 06/08/21 10:58 10:58 10:58 MCV 87.3 MCH 28.6 MCHC 32.8 RDW 13.2 Plt Count 296 MPV 9.1 L Immature Gran % (Auto) 0.5 H Neut % (Auto) 79.3 H Lymph % (Auto) 12.3 L [place] % (Auto) 6.4 Eos % (Auto) 1.1 Baso % (Auto) 0.4 Lymph # (Auto) 0.9 L [place] # (Auto) 0.5 Eos # (Auto) 0.1 Baso # (Auto) 0.0 Abs Immat Gran (auto) 0.04 H Absolute Neuts (auto) 5.9 Absolute Nucleated RBC 0.000 Nucleated RBC % (auto) 0.0 Anion Gap 12 Estim Creat Clear Calc 115.8 Estimated GFR > 60 Random Glucose 106 Calcium 9.3 D Total Bilirubin 0.8 AST 17 ALT 20 Alkaline Phosphatase 87 Total Protein 7.1 Albumin 3.9 Lipase 12 Beta HCG, Quant < 2 Urine Color YELLOW Urine Appearance CLEAR Urine pH 6.0 Ur Specific [place] 1.025 Urine Protein NEG Urine Glucose (UA) NEG Urine Ketones NEG Urine Blood 3+ H Urine Nitrite NEG Ur Leukocyte Esterase NEG Urine RBC 5-9 H Urine WBC 0-2 Ur Squamous Epith Cells TRACE Urine Bacteria TRACE Urine Mucus TRACE Urine Test COVID-19 ([facility]) COVID-19 Clin Com 06/08/21 06/08/21 10:58 10:59 MCV MCH MCHC RDW Plt Count MPV Immature Gran % (Auto) Neut % (Auto) Lymph % (Auto) [place] % (Auto) Eos % (Auto) Baso % (Auto) Lymph # (Auto) [place] # (Auto) Eos # (Auto) Baso # (Auto) Abs Immat Gran (auto) Absolute Neuts (auto) Absolute Nucleated RBC Nucleated RBC % (auto) Anion Gap Estim Creat Clear Calc Estimated GFR Random Glucose Calcium Total Bilirubin AST ALT Alkaline Phosphatase Total Protein Albumin Lipase Beta HCG, Quant Urine Color Urine Appearance Urine pH Ur Specific [place] Urine Protein Urine Glucose (UA) Urine Ketones Urine Blood Urine Nitrite Ur Leukocyte Esterase Urine RBC Urine WBC Ur Squamous Epith Cells Urine Bacteria Urine Mucus Urine Test NEGATIVE COVID-19 ([facility]) Negative COVID-19 Clin Com See Note Imaging Radiologist's Impressions: Impressions Abdomen/Pelvis CT 06/08/21 12:22 IMPRESSION: No CT evidence of any acute intra-abdominal or intrapelvic pathology, essentially remains unchanged since 02/23/2018. Chest X-Ray 06/08/21 15:27 IMPRESSION: No radiographic evidence of pneumonia. No acute pulmonary process. No evidence of free subdiaphragmatic air. Assessment and Plan (1) Acute epigastric pain: Status: Acute Plan 46F presented with epigastric pain epigastric pain prilosec ivf, pain meds gi eval predm, morbid obesity weight loss htn lisinopril dvt prophylaxis - lovenox Quality Stroke Does the patient have a stroke diagnosis?: No VTE Prior VTE?: No VTE Risk Level:: Medical - moderate - high VTE Device Contraindication: Treatment Not Indicated VTE Drug Contraindication: N/A - Med Ordered
[2021-06-08] MEDS: Lactated Ringers 1,000 ML 80 ML IVCONT (17:25)
[2021-06-08] MEDS: Enoxaparin Sodium 40 MG/0.4 ML SYRINGE SUBCUT (17:28)
[2021-06-08 18:52] VITALS: BP 121/62; PULSE 89; RESP 14; TEMP 37.9; O2SAT 99
[2021-06-08] MEDS: lisinopriL 20 MG TABLET PO (21:35)
[2021-06-08] MEDS: Morphine Sulfate 2 MG/ML CARTRIDGE IVPUSH (21:36)
[2021-06-09] VITALS (7 sets, daily range): BP systolic 102–118; BP diastolic 54–64; PULSE 78–97; RESP 14–18; TEMP 36.4–37.4; O2SAT 94–99
[2021-06-09] MEDS: Morphine Sulfate 2 MG/ML CARTRIDGE IVPUSH ×5 (03:34→21:32)
[2021-06-09] MEDS: Lactated Ringers 1,000 ML 80 ML IVCONT ×2 (05:42→19:30)
[2021-06-09] MEDS: Omeprazole 40 MG CAPSULE.DR PO (05:43)
--- NOTE | 2021-06-09 05:47 | PC.NURSE ---
Patient slept through the night without any issues. Patient did get up x 1 to use the bathroom and did receive pain medication at that point.
[2021-06-09 08:10] LABS: Hematocrit 35.4 % (37.0-47.0); Hemoglobin 11.4 g/dl (12.0-16.0); Mean Corpuscular HGB Conc 32.2 g/dl (31.0-35.0); Mean Corpuscular Hemoglobin 28.1 pg (27.0-33.0); Mean Corpuscular Volume 87.2 fL (80.0-98.0); Mean Platelet Volume 9.2 fL (9.4-12.3); Platelet Count 271 X10*3/uL (160-400); Red Blood Count 4.06 X10*6/uL (4.20-5.50); Red Cell Distribution Width 13.4 % (11.0-16.0); White Blood Count 6.3 X10*3/uL (4.8-10.8)
[2021-06-09 08:33] LABS: Anion Gap 12 (12-20); Blood Urea Nitrogen 8 mg/dL (9-16); Calcium 8.8 mg/dL (8.4-10.2); Carbon Dioxide 26 mmol/L (22-29); Chloride 103 mmol/L (96-108); Creatinine Clr Calc Pharmacy 114.4; Estimated Glomerular Filt Rate > 60; Glucose Fasting 117 mg/dL (60-99); Potassium 4.4 mmol/L (3.3-5.1); Sodium 137 mmol/L (135-145)
[2021-06-09] MEDS: lisinopriL 20 MG TABLET PO ×2 (10:00→19:30)
--- NOTE | 2021-06-09 10:03 | P.PNIM_ITS ---
Subjective Subjective Date of Service: 06/09/21 Interval History: cc: epigastric pain interval history: unchanged, not interested in advancing diet Cardiovascular Cardiovascular: Reports no additional cardiovascular complaints Respiratory Respiratory: Reports no additional respiratory complaints Physical Exam Verdana 4l Vital Signs: Verdana 4d Verdana 4d Vital Signs: Verdana 4d Verdana 4Bd Last Vital Signs Verdana 4d Sterilization Specialist New 4d Sterilization Specialist New 4d Temp 99.3 F 06/09/21 09:56 Sterilization Specialist New 4d Pulse 87 06/09/21 09:56 Sterilization Specialist New 4d Resp 18 06/09/21 09:56 BP 102/54 L 06/09/21 09:56 Pulse Ox 97 06/09/21 09:56 BMI result Body Mass Index 49.9 General: AO X 3, appears uncomfrtable Resp: CTA bilateral, no accessory muscles used CVS: S1,S2,RRR GI: soft, epigastric tender, non distended Neuro: motor grossly intact, alert Psych: appropriate affect, appropriate insight Objective Data Active Medications Enoxaparin Sodium (Enoxaparin Sodium 40 Mg/0.4 Ml Syringe) 40 mg SUBCUT Q24H [facility] Last Admin: 06/08/21 17:28 Dose: 40 mg Documented by: HORTENCIA Lactated Ringer's (Lr) 1,000 mls @ 80 mls/hr IVCONT .[id number] [facility] Last Admin: 06/09/21 05:42 Dose: 80 mls/hr Documented by: JULIAN Lisinopril (Lisinopril 20 Mg Tablet) 20 mg PO BID [facility]; Protocol Last Admin: 06/09/21 10:00 Dose: 20 mg Documented by: MADDIE Morphine Sulfate (Morphine Sulfate 2 Mg/Ml Cartridge) 2 mg IVPUSH Q3H PRN; Protocol PRN Reason: moderate pain Last Admin: 06/09/21 10:00 Dose: 2 mg Documented by: MADDIE Omeprazole (Omeprazole 40 Mg Capsule.) 40 mg PO DAILY@0630 [facility] Last Admin: 06/09/21 05:43 Dose: 40 mg Documented by: JULIAN Pharmacy Consult (Consult Rx Perform Med Rec) 1 each MISCELLANE ONCE PRN PRN Reason: Consult order Sodium Chloride (0.9 % Sodium Chloride Flush 3 Ml Syringe) 3 ml IVFLUSH QSHIFT [facility] Last Admin: 06/09/21 09:59 Dose: Not Given Documented by: MADDIE Non-Admin Reason: Med Not Available Labs CBC & Chem 7: 06/09/21 07:20 06/09/21 07:20 Labs: Laboratory Results - last 24 hr 06/08/21 06/08/21 06/08/21 10:58 10:58 10:58 MCV 87.3 MCH 28.6 MCHC 32.8 RDW 13.2 Plt Count 296 MPV 9.1 L Immature Gran % (Auto) 0.5 H Neut % (Auto) 79.3 H Lymph % (Auto) 12.3 L [place] % (Auto) 6.4 Eos % (Auto) 1.1 Baso % (Auto) 0.4 Lymph # (Auto) 0.9 L [place] # (Auto) 0.5 Eos # (Auto) 0.1 Baso # (Auto) 0.0 Abs Immat Gran (auto) 0.04 H Absolute Neuts (auto) 5.9 Absolute Nucleated RBC 0.000 Nucleated RBC % (auto) 0.0 Anion Gap 12 Estim Creat Clear Calc 115.8 Estimated GFR > 60 Random Glucose 106 Fasting Glucose Calcium 9.3 D Total Bilirubin 0.8 AST 17 ALT 20 Alkaline Phosphatase 87 Total Protein 7.1 Albumin 3.9 Lipase 12 Beta HCG, Quant < 2 Urine Color YELLOW Urine Appearance CLEAR Urine pH 6.0 Ur Specific [place] 1.025 Urine Protein NEG Urine Glucose (UA) NEG Urine Ketones NEG Urine Blood 3+ H Urine Nitrite NEG Ur Leukocyte Esterase NEG Urine RBC 5-9 H Urine WBC 0-2 Ur Squamous Epith Cells TRACE Urine Bacteria TRACE Urine Mucus TRACE Urine Test COVID-19 ([facility]) COVID-19 Clin Com 06/08/21 06/08/21 06/09/21 10:58 10:59 07:20 MCV 87.2 MCH 28.1 MCHC 32.2 RDW 13.4 Plt Count 271 MPV 9.2 L Immature Gran % (Auto) Neut % (Auto) Lymph % (Auto) [place] % (Auto) Eos % (Auto) Baso % (Auto) Lymph # (Auto) [place] # (Auto) Eos # (Auto) Baso # (Auto) Abs Immat Gran (auto) Absolute Neuts (auto) Absolute Nucleated RBC 0.000 Nucleated RBC % (auto) 0.0 Anion Gap Estim Creat Clear Calc Estimated GFR Random Glucose Fasting Glucose Calcium Total Bilirubin AST ALT Alkaline Phosphatase Total Protein Albumin Lipase Beta HCG, Quant Urine Color Urine Appearance Urine pH Ur Specific [place] Urine Protein Urine Glucose (UA) Urine Ketones Urine Blood Urine Nitrite Ur Leukocyte Esterase Urine RBC Urine WBC Ur Squamous Epith Cells Urine Bacteria Urine Mucus Urine Test NEGATIVE COVID-19 ([facility]) Negative COVID-19 Clin Com See Note 06/09/21 07:20 MCV MCH MCHC RDW Plt Count MPV Immature Gran % (Auto) Neut % (Auto) Lymph % (Auto) [place] % (Auto) Eos % (Auto) Baso % (Auto) Lymph # (Auto) [place] # (Auto) Eos # (Auto) Baso # (Auto) Abs Immat Gran (auto) Absolute Neuts (auto) Absolute Nucleated RBC Nucleated RBC % (auto) Anion Gap 12 Estim Creat Clear Calc 114.4 Estimated GFR > 60 Random Glucose Fasting Glucose 117 H Calcium 8.8 Total Bilirubin AST ALT Alkaline Phosphatase Total Protein Albumin Lipase Beta HCG, Quant Urine Color Urine Appearance Urine pH Ur Specific [place] Urine Protein Urine Glucose (UA) Urine Ketones Urine Blood Urine Nitrite Ur Leukocyte Esterase Urine RBC Urine WBC Ur Squamous Epith Cells Urine Bacteria Urine Mucus Urine Test COVID-19 ([facility]) COVID-19 Clin Com Assessment and Plan (1) HTN (hypertension): Status: Acute Plan 46F presented with epigastric pain epigastric pain prilosec ivf, pain meds follow up gi still wants just liquids predm, morbid obesity weight loss htn lisinopril dvt prophylaxis - lovenox Quality Stroke Does the patient have a stroke diagnosis?: No VTE Prior VTE?: No VTE Risk Level:: Medical - moderate - high VTE Device Contraindication: Treatment Not Indicated VTE Drug Contraindication: N/A - Med Ordered
--- NOTE | 2021-06-09 11:56 | MHC.SHP ---
Pre-Procedural Eval Section A Date of Service: 06/09/21 The patient is an INPATIENT: Yes Changes since office visit: No Cold of Flu in the past 2 weeks, No New Medical Problems, No Changes in Medication and No Patient answered all questions The History & Physical has been completed within 30 days and I have reviewed it.: Yes Section B Chief Complaint: epigastric pain Allergies: Allergies Allergy/AdvReac Type Severity Reaction Status Date / Time No Known Allergies Allergy Verified 05/30/21 12:44 [No Known Allergies*] Plan I have reviewed the history and physical and performed a pertinent physical examination on my patient. No changes have occurred unless specified.
--- NOTE | 2021-06-09 19:09 | CONS_ITS ---
DATE OF SERVICE: 06/09/2021 REFERRING PHYSICIAN: Vince Patel MD REASON FOR CONSULTATION: Epigastric pain. HISTORY OF PRESENT ILLNESS: Patient is a pleasant 46-year-old woman who was admitted to the hospital after presenting to the emergency room yesterday with complaints of abdominal pain. The history is obtained through the use of a hospital container washer machine. She states she drank a chocolate shake 3 days prior to admission, subsequently developed epigastric pain, which radiates up into her chest and into the back. There is associated nausea but no vomiting. She does have a history of gastroesophageal reflux disease and uses omeprazole on a p.r.n. basis. She did also take some ibuprofen around the time her symptoms began as she had some premenstrual symptoms associated with that. The ibuprofen did not improve her stomach symptoms. She has no complaints of dysphagia, hematemesis, or melena and denies prior history of peptic ulcer disease. She was evaluated in the emergency room where laboratory studies and CT scanning of the abdomen and pelvis showed no acute process. She does have a prior history of bile duct injury requiring reconstruction at the time of cholecystectomy in [place] 8 years ago. PAST MEDICAL HISTORY: 1. Cholecystectomy with bile duct injury as above. 2. Hypertension. 3. Single kidney. 4. Elevated blood sugar. 5. section x2. CURRENT MEDICATIONS: List is reviewed in the chart. ALLERGIES: THERE ARE NONE REPORTED. FAMILY HISTORY: Positive for gallbladder disease, but negative for GI malignancy. SOCIAL HISTORY: She denies tobacco or alcohol use. REVIEW OF SYSTEMS: SKIN: No pruritus. HEENT: Negative. CARDIOPULMONARY: No shortness of breath or chest pain. GASTROINTESTINAL: As above. GENITOURINARY: Negative. NEUROPSYCHIATRIC: Negative. PHYSICAL EXAMINATION: GENERAL: Shows a pleasant female, lying comfortably in bed. VITAL SIGNS: Reviewed in the electronic medical record and are stable. SKIN: Anicteric. HEENT: Shows no scleral icterus. NECK: Without lymphadenopathy or thyromegaly. LUNGS: Clear. HEART: Shows a regular rate and rhythm. S1, S2. No murmur. ABDOMEN: Soft without focal masses or tenderness. Bowel sounds are present. No organomegaly is noted. EXTREMITIES: Without edema. She does have a large right upper quadrant scar from her cholecystectomy surgery. LABORATORY DATA: Laboratory studies and CT scanning are reviewed. IMPRESSION: Epigastric pain. We discussed the differential diagnosis for this today including peptic ulcer disease, NSAID related gastritis, erosive esophagitis and gastric mass lesions. We have recommended further evaluation with upper endoscopy. This will be arranged for tomorrow. I agree with treating her inter in the meantime with a proton pump inhibitor and following her clinically. She is aware of risks and benefits of endoscopy and agrees to proceed. Thanks for asking me to see her. I will follow her in the hospital with you. MD CASSIE Grimes/JONY / [id number]
[2021-06-10] VITALS (7 sets, daily range): BP systolic 116–140; BP diastolic 68–85; PULSE 77–102; RESP 18–20; TEMP 36.3–37.4; O2SAT 96–100
[2021-06-10] MEDS: Omeprazole 40 MG CAPSULE.DR PO (05:35)
[2021-06-10] MEDS: lisinopriL 20 MG TABLET PO (08:41)
[2021-06-10] MEDS: Lactated Ringers 1,000 ML 80 ML IVCONT (08:41)
--- NOTE | 2021-06-10 08:44 | P.PNIM_ITS ---
Subjective Subjective Date of Service: 06/10/21 Interval History: cc: epigastric pain interval history: pain improved Cardiovascular Cardiovascular: Reports no additional cardiovascular complaints Respiratory Respiratory: Reports no additional respiratory complaints Physical Exam Verdana 4l Vital Signs: Verdana 4d Verdana 4d Vital Signs: Verdana 4d Verdana 4Bd Last Vital Signs Verdana 4d Recreation Instructor New 4d Recreation Instructor New 4d Temp 98.5 F 06/10/21 07:32 Recreation Instructor New 4d Pulse 77 06/10/21 07:32 Recreation Instructor New 4d Resp 18 06/10/21 07:32 BP 118/68 06/10/21 07:32 Pulse Ox 96 06/10/21 07:32 BMI result Body Mass Index 49.9 General: AO X 3, no acute distress Resp: CTA bilateral, no accessory muscles used CVS: S1,S2,RRR GI: soft, non tender, non distended Neuro: motor grossly intact, alert Psych: appropriate affect, appropriate insight Objective Data Active Medications Enoxaparin Sodium (Enoxaparin Sodium 40 Mg/0.4 Ml Syringe) 40 mg SUBCUT Q24H [facility] Last Admin: 06/08/21 17:28 Dose: 40 mg Documented by: HORTENCIA Lactated Ringer's (Lr) 1,000 mls @ 80 mls/hr IVCONT .[id number] [facility] Last Admin: 06/10/21 08:41 Dose: 80 mls/hr Documented by: GOLDEN Lisinopril (Lisinopril 20 Mg Tablet) 20 mg PO BID [facility]; Protocol Last Admin: 06/10/21 08:41 Dose: 20 mg Documented by: GOLDEN Morphine Sulfate (Morphine Sulfate 2 Mg/Ml Cartridge) 2 mg IVPUSH Q3H PRN; Protocol PRN Reason: moderate pain Last Admin: 06/09/21 21:32 Dose: 2 mg Documented by: MARIA EUGENIA Omeprazole (Omeprazole 40 Mg Capsule.) 40 mg PO DAILY@0630 [facility] Last Admin: 06/10/21 05:35 Dose: 40 mg Documented by: MARIA EUGENIA Pharmacy Consult (Consult Rx Perform Med Rec) 1 each MISCELLANE ONCE PRN PRN Reason: Consult order Sodium Chloride (0.9 % Sodium Chloride Flush 3 Ml Syringe) 3 ml IVFLUSH QSHIFT [facility] Last Admin: 06/10/21 08:41 Dose: Not Given Documented by: GOLDEN Non-Admin Reason: IV Running Labs CBC & Chem 7: 06/09/21 07:20 06/09/21 07:20 Assessment and Plan (1) HTN (hypertension): Status: Acute Plan 46F presented with epigastric pain epigastric pain prilosec improved plan for egd today predm, morbid obesity weight loss htn lisinopril dvt prophylaxis - lovenox Quality Stroke Does the patient have a stroke diagnosis?: No VTE Prior VTE?: No VTE Risk Level:: Medical - moderate - high VTE Device Contraindication: Treatment Not Indicated VTE Drug Contraindication: N/A - Med Ordered
[2021-06-10] MEDS: Morphine Sulfate 2 MG/ML CARTRIDGE IVPUSH (11:39)
--- NOTE | 2021-06-10 14:59 | HO.ANESPROP2 ---
HPI - Anesthesia Eval Consult details Narrative: Abdominal Pain PMFSH Active Problems Active Problems: All Active Problems (Updated 06/08/21 @ 16:28 by Vince Patel MD) HTN (hypertension) (Acute) Pre-diabetes (Acute) Acute epigastric pain (Acute) Past Medical History Medical History FH: cholecystectomy HTN (hypertension) Kidney anomaly, congenital Pre-diabetes Family History Family History Mother Diabetes Family history of problems with anesthesia: No Surgical History Surgical History History of cholecystectomy Previous section History of Problems with Anesthesia: No Social History Social History Household Members: Spouse and Children Housing: Apartment Do you presently have visiting nurse or other home services: No Alcohol intake: never Patient Tobacco Use Status: Never used Tobacco Use of substances other than those prescribed or required for medical reasons: No Currently Displaying Signs/Symptoms of Drug Intoxication Withdrawal: No Have you been hit, kicked, punched, or otherwise hurt by someone within the past year? If so, by whom?: No Do you feel safe in your current relationship?: Yes Is there a partner from a previous relationship who is making you feel unsafe now?: No Are you made to feel afraid or neglected: No Are you DNR?: No Advance Directives: No Advance Directives Information Provided: No Do you have thoughts of harming others: None Do you have a plan to hurt others: No Plan Recently lost weight without trying: No Nutrition Risks: No Nutritional Risk Patient : No : No Poor oral hygiene: No Meds Allergies Allergy/AdvReac Type Severity Reaction Status Date / Time No Known Allergies Allergy Verified 05/30/21 12:44 [No Known Allergies*] Active Medications: Current Medications Enoxaparin Sodium (Enoxaparin Sodium 40 Mg/0.4 Ml Syringe) 40 mg SUBCUT Q24H [facility] Last Admin: 06/08/21 17:28 Dose: 40 mg Documented by: Lactated Ringer's (Lr) 1,000 mls @ 80 mls/hr IVCONT .[id number] [facility] Last Admin: 06/10/21 08:41 Dose: 80 mls/hr Documented by: Lisinopril (Lisinopril 20 Mg Tablet) 20 mg PO BID [facility]; Protocol Last Admin: 06/10/21 08:41 Dose: 20 mg Documented by: Morphine Sulfate (Morphine Sulfate 2 Mg/Ml Cartridge) 2 mg IVPUSH Q3H PRN; Protocol PRN Reason: moderate pain Last Admin: 06/10/21 11:39 Dose: 2 mg Documented by: Omeprazole (Omeprazole 40 Mg Capsule.) 40 mg PO DAILY@0630 [facility] Last Admin: 06/10/21 05:35 Dose: 40 mg Documented by: Pharmacy Consult (Consult Rx Perform Med Rec) 1 each MISCELLANE ONCE PRN PRN Reason: Consult order Sodium Chloride (0.9 % Sodium Chloride Flush 3 Ml Syringe) 3 ml IVFLUSH QSHIFT [facility] Last Admin: 06/10/21 08:41 Dose: Not Given Documented by: Home Medications Medication Instructions Recorded Confirmed Last Taken Type acetaminophen 500 mg tablet 1,000 mg PO Q6H PRN 06/08/21 06/08/21 Unknown History cholecalciferol (vitamin D3) 25 1 tab PO DAILY 06/08/21 06/08/21 Unknown History mcg (1,000 unit) tablet (Vitamin D3) lisinopril 20 mg tablet 1 tab PO BID 06/08/21 06/08/21 06/08/21 History omeprazole 20 mg capsule,delayed 1 cap PO DAILY 06/08/21 06/08/21 Unknown History release Exam Exam Date and Time: June 10, 2021 1459 Height,Weight and Vital Signs: Height 5 ft 5 in Weight 136.078 kg Last Vital Signs Temp 98.7 F 06/10/21 14:21 Pulse 86 06/10/21 14:21 Resp 18 06/10/21 14:21 BP 137/81 06/10/21 14:21 Pulse Ox 98 06/10/21 14:21 Pertinent Lab Results Pertinent Lab Results: Laboratory Tests 06/08/21 06/08/21 06/08/21 10:58 10:58 10:58 WBC 7.4 RBC 4.33 Hgb 12.4 Hct 37.8 MCV 87.3 MCH 28.6 MCHC 32.8 RDW 13.2 Plt Count 296 MPV 9.1 L Immature Gran % (Auto) 0.5 H Neut % (Auto) 79.3 H Lymph % (Auto) 12.3 L Dickson % (Auto) 6.4 Eos % (Auto) 1.1 Baso % (Auto) 0.4 Lymph # (Auto) 0.9 L Dickson # (Auto) 0.5 Eos # (Auto) 0.1 Baso # (Auto) 0.0 Abs Immat Gran (auto) 0.04 H Absolute Neuts (auto) 5.9 Absolute Nucleated RBC 0.000 Nucleated RBC % (auto) 0.0 Sodium 139 Potassium 4.6 Chloride 106 Carbon Dioxide 26 Anion Gap 12 BUN 10 Creatinine 0.84 Estim Creat Clear Calc 115.8 Estimated GFR > 60 Random Glucose 106 Fasting Glucose Calcium 9.3 D Total Bilirubin 0.8 AST 17 ALT 20 Alkaline Phosphatase 87 Troponin I High Sens < 3.5 Total Protein 7.1 Albumin 3.9 Lipase 12 Beta HCG, Quant < 2 Urine Color Urine Appearance Urine pH Ur Specific [place] Urine Protein Urine Glucose (UA) Urine Ketones Urine Blood Urine Nitrite Ur Leukocyte Esterase Urine RBC Urine WBC Ur Squamous Epith Cells Urine Bacteria Urine Mucus Urine Test COVID-19 ([facility]) COVID-[employer] 06/08/21 06/08/21 06/08/21 10:58 10:58 10:59 WBC RBC Hgb Hct MCV MCH MCHC RDW Plt Count MPV Immature Gran % (Auto) Neut % (Auto) Lymph % (Auto) Dickson % (Auto) Eos % (Auto) Baso % (Auto) Lymph # (Auto) Dickson # (Auto) Eos # (Auto) Baso # (Auto) Abs Immat Gran (auto) Absolute Neuts (auto) Absolute Nucleated RBC Nucleated RBC % (auto) Sodium Potassium Chloride Carbon Dioxide Anion Gap BUN Creatinine Estim Creat Clear Calc Estimated GFR Random Glucose Fasting Glucose Calcium Total Bilirubin AST ALT Alkaline Phosphatase Troponin I High Sens Total Protein Albumin Lipase Beta HCG, Quant Urine Color YELLOW Urine Appearance CLEAR Urine pH 6.0 Ur Specific [place] 1.025 Urine Protein NEG Urine Glucose (UA) NEG Urine Ketones NEG Urine Blood 3+ H Urine Nitrite NEG Ur Leukocyte Esterase NEG Urine RBC 5-9 H Urine WBC 0-2 Ur Squamous Epith Cells TRACE Urine Bacteria TRACE Urine Mucus TRACE Urine Test NEGATIVE COVID-19 ([facility]KIA) Negative COVID-19 [employer] See Note 06/09/21 06/09/21 07:20 07:20 WBC 6.3 RBC 4.06 L Hgb 11.4 L Hct 35.4 L MCV 87.2 MCH 28.1 MCHC 32.2 RDW 13.4 Plt Count 271 MPV 9.2 L Immature Gran % (Auto) Neut % (Auto) Lymph % (Auto) Dickson % (Auto) Eos % (Auto) Baso % (Auto) Lymph # (Auto) Dickson # (Auto) Eos # (Auto) Baso # (Auto) Abs Immat Gran (auto) Absolute Neuts (auto) Absolute Nucleated RBC 0.000 Nucleated RBC % (auto) 0.0 Sodium 137 Potassium 4.4 Chloride 103 Carbon Dioxide 26 Anion Gap 12 BUN 8 L Creatinine 0.85 Estim Creat Clear Calc 114.4 Estimated GFR > 60 Random Glucose Fasting Glucose 117 H Calcium 8.8 Total Bilirubin AST ALT Alkaline Phosphatase Troponin I High Sens Total Protein Albumin Lipase Beta HCG, Quant Urine Color Urine Appearance Urine pH Ur Specific [place] Urine Protein Urine Glucose (UA) Urine Ketones Urine Blood Urine Nitrite Ur Leukocyte Esterase Urine RBC Urine WBC Ur Squamous Epith Cells Urine Bacteria Urine Mucus Urine Test COVID-19 ([facility]KIA) COVID-19 Clin Com Airway Mallampati Class: III TM Dist: >3cm Neck ROM: Full Loose/Missing/Broken Teeth: No Heart: [id number] Lungs: cta b/l Assessment and Plan Assessment Anesthesia Assessment: Anesthesia Plan Discussed and Chart Reviewed Final Anesthetic Review Family History of Problems with Anesthesia: No History of Problems with Anesthesia: No NPO: Yes ASA Class: III and Emergency Final Preanesthetic Review: No Changes in Pt Med Stat, Meds/Allgs Chart Reviewed, Consent Obtained/Reviewed and Anes Risks/Benef Reviewed Patient Risk: Intermediate Procedure Risk: Low Assessment/Block/Sedation in SS: Assess/Block/Sedation-SS Anesthetic Plan Anesthetic Plan: MAC: and Agree w/ Assess. and Plan Disposition: Standard PACU
--- NOTE | 2021-06-10 15:38 | MHC.CM.PN ---
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 D/C PLAN: HOME NO SERVICES, FAMILY FOR TRANSPORT
--- NOTE | 2021-06-10 15:49 | PM.OP ---
Brief Operative Note Date of Service: 06/10/21 Pre-op diagnosis: epigastric pain Post-op diagnosis: same (gastritis) Surgeon: Ramon Cardenas Anesthesia: MAC Was an Tank Terminal Gauger used for this Procedure?: No Estimated blood loss (mL): 2 Pathology: other (bxs antrum and egj) Condition: stable Disposition: PACU
--- NOTE | 2021-06-10 15:50 | PM.EVENT ---
Event Note Date of Service: 06/10/21 Event Note: EGD dictated mild antral gastritis, biopsied rec advance diet d/c ppi x 8-12 weeks f/u bx results
--- NOTE | 2021-06-10 16:06 | PM.DS ---
DS: Providers Provider Date of Service: 06/10/21 Date of admission: 06/08/21 16:25 Primary care physician: Neal Desir MD Consults: 06/08/21 16:25 Consult to Gastroenterology Routine Consulting Provider: Ramon Cardenas Reason for consultation: epigastric pain DS: Diagnosis Discharge Diagnosis (1) HTN (hypertension): Status: Acute DS: Summary Hospital Course Hospital Course: patient was admitted for abdominal pain. she was given ppi, pain meds, she underwent endocscopy which showed mild gastritis, prilsoec increased from 20mg to 40mg daily, she will follow up with gi. overall symptoms improved, patient tolerating solids. Time Spent with Patient Time attestation: Total time spent providing and/or coordinating discharge services: Discharge coordination time: Greater than 30 minutes Quality: Stroke Does the patient have a stroke diagnosis?: No Physical Exam Vital Signs: Vital Signs: Last Vital Signs Temp 98.7 F 06/10/21 14:21 Pulse 86 06/10/21 14:21 Resp 18 06/10/21 14:21 BP 137/81 06/10/21 14:21 Pulse Ox 98 06/10/21 14:21 BMI result Body Mass Index 49.9 General: AO X 3, no acute distress Resp: CTA bilateral, no accessory muscles used CVS: S1,S2,RRR GI: soft, non tender, non distended Neuro: motor grossly intact, alert Psych: appropriate affect, appropriate insight DS: Data Data Completed and Pending Pending studies at discharge: Pending at discharge 06/10/21 15:41 Surgical [PTH] Routine Discharge Plan Discharge Patient Disposition: Home, Self-Care Discharge Diagnosis: gastritis Referrals: Ramon Cardenas [Physician] - 2 days (epigastric pain x 2 days, ?EGD needed) Neal Desir MD [Primary Care Provider] - 1 Week Discharge Medications: New lidocaine HCl [Lidocaine Viscous] 2 % solution 1 appl mucous membrane TID PRN (Reason: pain) Qty: 100 0RF alum-mag hydroxide-simeth [Maalox Advanced] 200-200-20 mg/5 mL suspension 10 ml PO Q6H PRN (Reason: dyspepsia) Qty: 3000 0RF omeprazole 40 mg Capsule,Delayed Release(Dr/Ec) 40 mg PO DAILY@0630 Qty: 60 0RF Continued lisinopril 20 mg tablet 1 tab PO BID 0RF cholecalciferol (vitamin D3) [Vitamin D3] 25 mcg (1,000 unit) tablet 1 tab PO DAILY 0RF acetaminophen 500 mg Tablet 1,000 mg PO Q6H PRN (Reason: Pain) 0RF Discontinued omeprazole 20 mg capsule,delayed release(DR/EC) 1 cap PO DAILY 0RF Discharge Orders: Discharge Order (Routine); Ordered 06/10/21 Ordered By: Vince Patel Diet: advance to usual diet Activity on Discharge: As tolerated Stand Alone Forms: Patient Portal Discharge page Care Plan Goals: recovery Health Concerns: gastritis Plan of Treatment: prilsoec increased, follow up with gi Assessment: see above Patient Instructions: Abdominal Pain (ED)
--- NOTE | 2021-06-10 21:56 | OP_ITS ---
SURGEON: Ramon Cardenas MD INDICATIONS: Epigastric pain. PREOPERATIVE DIAGNOSIS: POSTOPERATIVE DIAGNOSIS: PROCEDURE PERFORMED: Upper endoscopy with biopsy. ESTIMATED BLOOD LOSS: COMPLICATIONS: ANESTHESIA: Medications, monitored anesthesia care. ASSISTANTS: SPECIMENS: DESCRIPTION OF PROCEDURE: History and physical performed. The risks and benefits of the procedure were explained to the patient. Informed consent was obtained. The patient was placed in the left lateral decubitus position. The Olympus video gastroscope was introduced into the esophagus, stomach, and duodenum. Examination was performed. The scope was removed. She tolerated the procedure well and was taken to recovery are in stable condition. FINDINGS: Esophagus: The esophagus was normal. There was no esophagitis. Biopsies were obtained from the EG junction. Stomach: The stomach showed mild antral gastritis with a few focal areas of erythema and superficial erosion in the prepyloric region. There was no ulceration and no active bleeding. Antral biopsies were obtained. Duodenum: The bulb and second portion were normal. IMPRESSION: Gastritis. RECOMMENDATION: 1. Follow up the biopsy results. 2. Continue proton pump inhibitor. MD CASSIE Grimes/MODL / [id number]
== END 2021-06-10 18:24 | disposition home or self-care (01) ==
LOC: HO.ED 16:06 → HO.EDOVER 16:40 → HO.S3 06-09 12:37
PROVIDERS: Internal Medicine Gastroenterology; Physician Assistant; Admitting Provider Internal Medicine; Emergency Provider Emergency Medicine; PCP Internal Medicine; Visit Provider Internal Medicine
PROC: 0DJ08ZZ Inspection of Upper Intestinal Tract, Via Natural or Artificial Opening Endoscopic (ICD-10-PCS; CPT 43235; principal; 2021-06-10 14:40)
DX: R10.13 Epigastric pain (principal); K29.70 Gastritis, unspecified, without bleeding; K21.9 Gastro-esophageal reflux disease without esophagitis; R73.03 Prediabetes; I10 Essential (primary) hypertension; E66.01 Morbid (severe) obesity due to excess calories; Z68.42 Body mass index [BMI] 45.0-49.9, adult; Z20.822 Contact with and (suspected) exposure to COVID-19; Z90.5 Acquired absence of kidney; Z90.49 Acquired absence of other specified parts of digestive tract; Z79.899 Other long term (current) drug therapy
CPT/HCPCS: 43242; 36415; 71045; 74177; 80048; 80053; 81001; 81025; 83690; 84484; 84702; 85025; 85027; 87635; 88305; 88342; 93005; 96361; 96372; 96374; 96375; 96376; 99218; 99285; J1650; J2250; J2270; J2405; Q9967

== ENCOUNTER 2021-07-29 11:19 | Emergency (ER) | payer MEDICAID, SELFPAY ==
--- NOTE | ~2021-07-29 | XR_ITS ---
EXAMINATION: XR FOOT, LEFT CLINICAL INFORMATION: Injury. Pain. COMPARISON: None TECHNIQUE: AP, lateral, and oblique views of the left foot. FINDINGS: The bones and soft tissues are normal. No fracture. Alignment is anatomic. Joint spaces are maintained. XR/XR foot LT min 3V IMPRESSION: Unremarkable left foot.
[2021-07-29 11:36] VITALS: BP 125/71; PULSE 103; RESP 18; TEMP 37.2; O2SAT 97; BMI 51.5
--- NOTE | 2021-07-29 11:43 | ED_ITS ---
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 Patient states that she was walking her child to school when she hurt her left foot. Patient denies falling or hitting her head with the incident. Patient denies any loss of consciousness with the incident. Patient states that the pain is mostly the top of her left foot. Patient denies any numbness, tingling, dizziness, lightheadedness, abdominal pain, nausea, vomiting, fever, chills, blurry vision, double vision, loss of vision, chest pain, difficulty breathing, shortness of breath, back pain, night sweats, pain with urination, increased urinary frequency, increased urinary urgency, blood in her urine or stool, syncope or a near syncopal episode, bowel incontinence, bladder incontinence, bowel retention, bladder retention, or any other complaints at this time. MD complaint: ankle injury and foot injury Place: street/outdoors Severity: mild Severity scale (1-10): 3 Relieving factors: nothing Exacerbating factors: nothing Other symptoms: none Related Data Home Medications Medication Instructions Recorded Confirmed acetaminophen 500 mg tablet 1,000 mg PO Q6H PRN 06/08/21 06/08/21 cholecalciferol (vitamin D3) 25 1 tab PO DAILY 06/08/21 06/08/21 mcg (1,000 unit) tablet (Vitamin D3) lisinopril 20 mg tablet 1 tab PO BID 06/08/21 06/08/21 Previous Rx's Medication Instructions Recorded aluminum-mag hydroxide-simethicone 10 ml PO Q6H PRN #3000 ml 06/08/21 200 mg-200 mg-20 mg/5 mL oral susp (Maalox Advanced) lidocaine HCl 2 % mucosal solution 1 appl MUCOUS MEMBRANE TID PRN 06/08/21 (Lidocaine Viscous) #100 ml omeprazole 40 mg capsule,delayed 40 mg PO DAILY@0630 #60 cap 06/10/21 release Allergies Allergy/AdvReac Type Severity Reaction Status Date / Time No Known Allergies Allergy Verified 05/30/21 12:44 [No Known Allergies*] Review of Systems Constitutional: Constitutional: Reports no additional constitutional complaints, Denies chills, Denies fever(s) and Denies night sweats Eyes: Eyes: Reports no additional eye complaints, Denies blurry vision, Denies change in vision, Denies diplopia, Denies eye discharge, Denies loss of vision and Denies eye pain ENT: Denies dizziness Cardiovascular: Cardiovascular: Reports no additional cardiovascular complaints, Denies chest pain, Denies lightheadedness, Denies Loss of Consciou sness and Denies dyspnea Respiratory: Respiratory: Reports no additional respiratory complaints and Denies dyspnea Gastrointestinal: Gastrointestinal: Reports no additional gastrointestinal complaints, Denies abdominal pain, Denies melena, Denies hematochezia, Denies change in bowel habits and Denies change in stool character Genitourinary: Genitourinary: Denies hematuria, Denies urinary frequency, Denies dysuria, Denies urinary incontinence, Denies urinary hesitancy and Denies urinary urgency Musculoskeletal: Musculoskeletal: Reports no additional musculoskeletal complaints, Denies numbness and Denies tingling Comments: left foot pain Neurologic: Denies dizziness, Denies loss of vision, Denies numbness and Denies tingling Psychiatric: Psychiatric: Reports no additional psychiatric complaints Endocrine: Endocrine: Reports no additional endocrine complaints Hematologic/Lymphatic: Hematologic/Lymphatic: Reports no additional hemat ologic/lymphatic complaints Allergic/Immunologic: Allergic/Immunologic: Reports no additional allergic/immunologic complaints [facility] Past Medical History Attestation statement: The following information was validated with the patient. Source: old records reviewed Medical History FH: cholecystectomy HTN (hypertension) Kidney anomaly, congenital Pre-diabetes Surgical History History of cholecystectomy Previous section Family History Family History Mother Diabetes Social History Social History Household Members: Spouse and Children Housing: Apartment Do you presently have visiting nurse or other home services: No Alcohol intake: never Patient Tobacco Use Status: Never used Tobacco Advance Directives: Yes Advance Directives Information Provided: No Advance Directives on File: No Patient : No service: No Physical Exam Vital Signs: Vital Signs: Last Vital Signs Temp 98.9 F 07/29/21 11:36 Pulse 103 H 07/29/21 11:36 Resp 18 07/29/21 11:36 BP 125/71 07/29/21 11:36 Pulse Ox 97 07/29/21 11:36 BMI result Body Mass Index 51.5 Const: General: cooperative, no acute distress, alert and awake Nutritional Appearance: well nourished Orientation/consciousness: patient oriented x3 Limitations: no limitations HEENT: Head: Yes normal to inspection and Yes atraumatic Ears: hearing grossly normal bilaterally and external ears normal General nose exam: Normal external nose present, no nasal discharge noted and no epistaxis Face and sinus: Yes normal facial exam, No abrasion and No laceration Mouth: Normal oral and palatal mucosa present, no drooling and no muffled voice Eyes: General: appearance normal, both eyes and all related structures Periorbital: periorbital findings normal Eyelids: Yes eyelids normal Conjunctivae: conjunctivae normal Pupils: Equal, round and reactive pupils present EOM: EOMs intact bilaterally Neck: Neck: Yes normal visual inspection, Yes full ROM and Yes no lymphadenopathy Chest: Chest palpation & inspection: normal inspection of the chest Resp: Effort & Inspection: normal respiratory effort and able to speak in complete sentences Auscultation: clear to auscultation bilaterally Cardio: Rate: regular rate Rhythm: regular rhythm GI: Inspection: Yes normal to inspection Neuro: General: patient oriented x3 and moves all extremities Cranial nerves: Yes Equal, round and reactive pupils present Cognition (Neuro): normal cognition Motor exam (neuro): 5/5 motor strength present throughout Sensory Exam: Normal double simultaneous stimulation for sensation Coordination: [id number] test normal Extrem: Other: pain to palpation to the dorsal aspect of the left foot General: Yes normal to inspection, Yes full ROM and Yes capillary refill normal Psych: Appearance: grossly normal Mental Status: mental status grossly normal Affect: normal affect Attitude: cooperative Thought process: Normal thought process present Thought content: Normal thought content presen t Insight: Good insight present (Psych) MDM - Extremity Injury (Lower) MDM Narrative Medical decision making narrative: Patient is a 46 year old female presenting to the emergency department today with left foot pain. Patient's physical exam showed tenderness to palpation on the dorsal aspect of the left foot but was otherwise unremarkable. Patient's left foot x-ray showed no acute process. I explained my physical exam findings as well as all test results to the patient. I answered all questions asked by the patient. Patient's left foot was placed in a walking boot and given crutches with crutch training. I stressed the importance of the patient taking her medic ation as prescribed. I stressed the importance of the patient following up with her primary care provider and an orthopedist. I stressed the importance of the patient returning to the emergency department immediately if her symptoms were to worsen or if she were to develop any dizziness, shortness of breath, difficulty breathing, chest pain, blurry vision, loss of vision, nausea, vomiting, abdominal pain, fever, chills, back pain, or any other complaints. Patient verbalized agreement and understanding with this treatment plan and discharge. Differential Diagnosis Differential diagnosis: Likely ankle sprain and strain (foot fracture) and fracture of toe Medical Records Attestation: I reviewed the patient's medical records. Imaging Data Left foot x-ray: Attestation: I personally reviewed and interpreted this imaging study as follows: My impression: No acute fracture. Radiologist's impression: EXAMINATION: XR FOOT, LEFT CLINICAL INFORMATION: Injury. Pain.? COMPARISON: None? TECHNIQUE: AP, lateral, and oblique views of the left foot. FINDINGS: The bones and soft tissues are normal. No fracture. Alignment is anatomic. Joint spaces are maintained.? XR/XR foot LT min 3V IMPRESSION: Unremarkable left foot. Dictated By: Bob Abrams MD Signed By: Electronically signed by Bob Abrams MD 07/29/21 1205 Discharge Plan Discharge Clinical Impression: Foot pain, Acute ankle pain Patient Disposition: Home, Self-Care Instructions: Ankle Sprain (ED), Foot Contusion (ED), Ankle Strain (ED) Additional Instructions: Call to schedule a follow up appointment with an Orthopedic provider. Follow up with your primary care provider. Return to the emergency department immediately if your symptoms worsen or if you develop any dizziness, shortness of breath, difficulty breathing, chest pain, blurry vision, loss of vision, nausea, vomiting, abdominal pain, fever, chills, back pain, or any other complaints. Prescriptions: No Action lidocaine HCl [Lidocaine Viscous] 2 % solution 1 appl mucous membrane TID PRN (Reason: pain) Qty: 100 0RF alum-mag hydroxide-simeth [Maalox Advanced] 200-200-20 mg/5 mL suspension 10 ml PO Q6H PRN (Reason: dyspepsia) Qty: 3000 0RF lisinopril 20 mg tablet 1 tab PO BID 0RF cholecalciferol (vitamin D3) [Vitamin D3] 25 mcg (1,000 unit) tablet 1 tab PO DAILY 0RF acetaminophen 500 mg Tablet 1,000 mg PO Q6H PRN (Reason: Pain) 0RF omeprazole 40 mg Capsule,Delayed Release(Dr/Ec) 40 mg PO DAILY@0630 Qty: 60 0RF Referrals: José Miguel Quick MD [Physician] - 2 days Neal Desir MD [Primary Care Provider] - 2 days Stand Alone Forms: Work/School Release Print Language: French
[2021-07-29] MEDS: Acetaminophen 325 MG TABLET 650 MG PO (12:48)
== END 2021-07-29 12:54 | disposition home or self-care (01) ==
PROVIDERS: Emergency Provider Emergency Medicine; PCP Internal Medicine
DX: M25.572 Pain in left ankle and joints of left foot (principal); I10 Essential (primary) hypertension; R73.03 Prediabetes
CPT/HCPCS: 73630; 99283; 99284

== ENCOUNTER 2021-08-16 07:14 | Outpatient (REF) | payer MEDICAID, SELFPAY | END 2021-08-16 07:15 | disposition home or self-care (01) | LOC: HO.HOSX 07:14 | PROVIDERS: Visit Provider Physician Assistant | DX: S93.402A Sprain of unspecified ligament of left ankle, initial encounter (principal) | CPT/HCPCS: 99202 ==

== ENCOUNTER 2022-01-06 12:54 | Emergency (ER) | payer MEDICAID, SELFPAY ==
[2022-01-06 12:56] VITALS: BP 127/54; PULSE 76; RESP 18; TEMP 36.8; O2SAT 99; BMI 49.9
--- NOTE | 2022-01-06 14:27 | ED.EXTPRO ---
HPI - Extremity Problem General Chief complaint: Extremity Problem Stated complaint: L foot pain Time Seen by Provider: 01/06/22 14:27 Source: patient Mode of arrival: ambulatory Limitations: no limitations History of Present Illness HPI Narrative: Patient is a 46 year old female presenting to the emergency department today with left foot pain. Patient states that she has been having pain for the last 3 days on the top of her left foot and the back of her left ankle. Patient states that she had a twisted ankle 6 months ago and thought everything had healed, then this pain started. Patient denies any dizziness, lightheadedness, abdominal pain, nausea, vomiting, fever, chills, blurry vision, double vision, loss of vision, chest pain, difficulty breathing, shortness of breath, back pain, night sweats, pain with urination, increased urinary frequency, increased urinary urgency, blood in her urine or stool, syncope or a near syncopal episode, recent trauma or falls, bowel incontinence, bladder incontinence, bowel retention, bladder retention, or any other complaints at this time. MD Complaint: extremity pain Onset (ago): day(s) (3) Pain Consistency: constant Location: left and other (foot / ankle) Severity scale (1-10): 3 Quality: dull Radiation: none Relieving factors: nothing Exacerbating factors: nothing Associated symptoms: denies other symptoms Related Data Home Medications Medication Instructions Recorded Confirmed acetaminophen 500 mg tablet 1,000 mg PO Q6H PRN Pain 06/08/21 06/08/21 cholecalciferol (vitamin D3) 25 1 tab PO DAILY 06/08/21 06/08/21 mcg (1,000 unit) tablet (Vitamin D3) lisinopril 20 mg tablet 1 tab PO BID 06/08/21 06/08/21 Previous Rx's Medication Instructions Recorded aluminum-mag hydroxide-simethicone 10 ml PO Q6H PRN dyspepsia #3,000 06/08/21 200 mg-200 mg-20 mg/5 mL oral susp mL (Maalox Advanced) lidocaine HCl 2 % mucosal solution 1 appl mucous membrane TID PRN 06/08/21 (Lidocaine Viscous) pain #100 mL omeprazole 40 mg capsule,delayed 40 mg PO DAILY@0630 #60 caps 06/10/21 release prednisone 20 mg tablet 20 mg PO DAILY 12 days #26 tabs 01/06/22 Allergies Allergy/AdvReac Type Severity Reaction Status Date / Time No Known Allergies Allergy Verified 05/30/21 12:44 [No Known Allergies*] Review of Systems Constitutional: Constitutional: Reports no additional constitutional complaints, Denies chills, Denies fever(s) and Denies night sweats Eyes: Eyes: Reports no additional eye complaints, Denies blurry vision, Denies change in vision, Denies diplopia, Denies eye discharge, Denies loss of vision and Denies eye pain ENT: Denies dizziness Cardiovascular: Cardiovascular: Reports no additional cardiovascular complaints, Denies chest pain, Denies lightheadedness, Denies Loss of Consciousness and Denies dyspnea Respiratory: Respiratory: Reports no additional respiratory complaints and Denies dyspnea Gastrointestinal: Gastrointestinal: Reports no additional gastrointestinal complaints, Denies abdominal pain, Denies melena, Denies hematochezia, Denies change in bowel habits and Denies change in stool character Genitourinary: Genitourinary: Denies hematuria, Denies urinary frequency, Denies dysuria, Denies urinary incontinence, Denies urinary hesitancy and Denies urinary urgency Musculoskeletal: Musculoskeletal: Reports no additional musculoskeletal complaints, Denies numbness and Denies tingling Comments: left ankle / foot pain Neurologic: Denies dizziness, Denies loss of vision, Denies numbness and Denies tingling Psychiatric: Psychiatric: Reports no additional psychiatric complaints Endocrine: Endocrine: Reports no additional endocrine complaints Hematologic/Lymphatic: Hematologic/Lymphatic: Reports no additional hematologic/lymphatic complaints Allergic/Immunologic: Allergic/Immunologic: Reports no additional allergic/immunologic complaints [facility] Past Medical History Attestation statement: The following information was validated with the patient. Source: old records reviewed Medical History FH: cholecystectomy HTN (hypertension) Kidney anomaly, congenital Pre-diabetes Surgical History History of cholecystectomy Previous section Family History Family History Mother Diabetes Social History Social History Household Members: Spouse and Children Housing: Apartment Do you presently have visiting nurse or other home services: No Alcohol intake: never Patient Tobacco Use Status: Never used Tobacco Advance Directives: Yes Advance Directives on File: Yes Advance Directives Date on File: 06/11/21 service: No Current occupational status: disabled 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 Physical Exam Vital Signs: Vital Signs: Last Vital Signs Temp 98.3 F 01/06/22 12:56 Pulse 76 01/06/22 12:56 Resp 18 01/06/22 12:56 BP 127/54 L 01/06/22 12:56 Pulse Ox 99 01/06/22 12:56 O2 Del Method 01/06/22 12:56 BMI result Body Mass Index 49.9 Const: General: cooperative, no acute distress, alert and awake Nutritional Appearance: well nourished Orientation/consciousness: patient oriented x3 Limitations: no limitations HEENT: Head: Yes normal to inspection and Yes atraumatic Ears: hearing grossly normal bilaterally and external ears normal General nose exam: Normal external nose present, no nasal discharge noted and no epistaxis Face and sinus: Yes normal facial exam, No abrasion and No laceration Mouth: Normal oral and palatal mucosa present, no drooling and no muffled voice Eyes: General: appearance normal, both eyes and all related structures Periorbital: periorbital findings normal Eyelids: Yes eyelids normal Conjunctivae: conjunctivae normal Pupils: Equal, round and reactive pupils present EOM: EOMs intact bilaterally Neck: Neck: Yes normal visual inspection, Yes full ROM and Yes no lymphadenopathy Chest: Chest palpation & inspection: normal inspection of the chest Resp: Effort & Inspection: normal respiratory effort and able to speak in complete sentences Auscultation: clear to auscultation bilaterally Cardio: Rate: regular rate Rhythm: regular rhythm GI: Inspection: Yes normal to inspection Neuro: General: patient oriented x3 and moves all extremities Cranial nerves: Yes Equal, round and reactive pupils present Cognition (Neuro): normal cognition Motor exam (neuro): 5/5 motor strength present throughout Sensory Exam: Normal double simultaneous stimulation for sensation Coordination: [id number] test normal Extrem: General: Yes normal to inspection, Yes full ROM and Yes capillary refill normal Psych: Appearance: grossly normal Mental Status: mental status grossly normal Affect: normal affect Attitude: cooperative Thought process: Normal thought process present Thought content: Normal thought content present Insight: Good insight present (Psych) MDM - Extremity (Nontraumatic) MDM Narrative Medical decision making narrative: Patient is a 46 year old female presenting to the emergency department today with left ankle pain and left foot pain. Patient's physical exam was unremarkable. I explained my physical exam findings as well as all test results to the patient. I answered all questions asked by the patient. I stressed the importance of the patient taking her medication as prescribed. I stressed the importance of the patient following up with her primary care provider, an orthopedist and a hot wire glass tube cutter. I stressed the importance of the patient returning to the emergency department immediately if her symptoms were to worsen or if she were to develop any dizziness, shortness of breath, difficulty breathing, chest pain, blurry vision, loss of vision, nausea, vomiting, abdominal pain, fever, chills, back pain, or any other complaints. Patient verbalized agreement and understanding with this treatment plan and discharge. Medical Records Attestation: I reviewed the patient's medical records. Discharge Plan Discharge Clinical Impression: Tendonitis of ankle Patient Disposition: Home, Self-Care Instructions: Tendinitis (ED) Additional Instructions: Follow up with your primary care provider, the orthopedist, and a hot wire glass tube cutter. Return to the emergency department immediately if your symptoms worsen or if you develop any dizziness, shortness of breath, difficulty breathing, chest pain, blurry vision, loss of vision, nausea, vomiting, abdominal pain, fever, chills, back pain, or any other complaints. Bianca un seguimiento con lerma proveedor de atenci?n primaria, el ortopedista y un pod?logo. Regrese al departamento de emergencias de inmediato si ariadne s?ntomas empeoran o si presenta mareos, falta de aire, dificultad para respirar, dolor de pecho, visi?n borrosa, p?rdida de la visi?n, n?useas, v?mitos, dolor abdominal, fiebre, escalofr?os, dolor de espalda o cualquier otras quejas. Prescriptions: New prednisone 20 mg tablet 20 mg PO DAILY 12 Days Qty: 26 0RF Rx Instructions: Take 3 tablets for 5 days THEN; Take 2 tablets for 4 days THEN; Take 1 tablet for 3 days No Action lidocaine HCl [Lidocaine Viscous] 2 % solution 1 appl mucous membrane TID PRN (Reason: pain) Qty: 100 0RF alum-mag hydroxide-simeth [Maalox Advanced] 200-200-20 mg/5 mL suspension 10 ml PO Q6H PRN (Reason: dyspepsia) Qty: 3000 0RF lisinopril 20 mg tablet 1 tab PO BID cholecalciferol (vitamin D3) [Vitamin D3] 25 mcg (1,000 unit) tablet 1 tab PO DAILY acetaminophen 500 mg Tablet 1,000 mg PO Q6H PRN (Reason: Pain) omeprazole 40 mg Capsule,Delayed Release(Dr/Ec) 40 mg PO DAILY@0630 Qty: 60 0RF Referrals: [facility] [place] [facility] [Provider Group] Jose Luis Maynard DPM [Physician] - Neal Desir MD [Primary Care Provider] - Interventions: ED Discharge Assessment Last Done: 01/06/22 15:08 Discharge Date/Time: 01/06/22 15:09 Print Language: Occitan
== END 2022-01-06 15:09 | disposition home or self-care (01) ==
PROVIDERS: Emergency Provider Emergency Medicine; PCP Internal Medicine
DX: M77.52 Other enthesopathy of left foot and ankle (principal); M79.672 Pain in left foot; I10 Essential (primary) hypertension; R73.03 Prediabetes; Z79.899 Other long term (current) drug therapy
CPT/HCPCS: 99282; 99283

== ENCOUNTER 2022-01-23 07:41 | Outpatient (REF) | payer MEDICAID, SELFPAY ==
--- NOTE | ~2022-01-23 | XR_ITS ---
EXAMINATION: XR ANKLE, LEFT CLINICAL INFORMATION: Left ankle pain COMPARISON: Left foot 07/21/2021 TECHNIQUE: AP, lateral, and mortise views of the left ankle. FINDINGS: Prominent heel spur. Small posterior calcaneal enthesophyte. Ankle mortise is preserved. No fracture. XR/XR ankle LT min 3V IMPRESSION: Heel spur. No acute abnormality.
== END 2022-01-23 07:42 | disposition home or self-care (01) ==
LOC: HO.HOSX 07:41
PROVIDERS: Visit Provider Physician Assistant
DX: S93.402A Sprain of unspecified ligament of left ankle, initial encounter (principal)
CPT/HCPCS: 73610; 99212

== ENCOUNTER 2022-04-23 08:41 | Outpatient (REF) | payer MEDICAID, SELFPAY ==
--- NOTE | ~2022-04-23 | MM_ITS ---
EXAMINATION: MM SCREENING DIGITAL BREAST TOMOSYNTHESIS, BILATERAL CLINICAL INFORMATION: Screening. Asymptomatic. The lifetime risk of breast cancer based on the Tyrer-Cuzick Model is 11%. COMPARISON: Mammography: 04/16/2021, 11/30/2019, 09/15/2018, 09/04/2017; bilateral breast ultrasound 07/23/2015. TECHNIQUE: Digital breast tomosynthesis is performed in both the craniocaudal and mediolateral oblique views along with computer-aided detection (CAD). Synthesized 2D images are generated from the tomosynthesis. FINDINGS: There are scattered areas of fibroglandular density (ACR BI-RADS breast composition Category b). Parenchymal pattern is similar to prior studies. There is fine fibronodular pattern with 2 smooth stable dominant nodules mid medial left breast believed to represent fibroadenomatous on prior imaging. There is no developing density or architectural abnormality or abnormal calcifications. The axilla and are unremarkable. MM/MM tomosynthesis screening BI IMPRESSION: No mammographic evidence of malignancy. ASSESSMENT: BI-RADS 2: Benign RECOMMENDATION: Routine annual mammography screening. This patient's information was entered into a reminder system with a target due date for their next mammogram.
== END 2022-04-23 08:42 | disposition home or self-care (01) ==
LOC: HO.MAMMO 08:41
PROVIDERS: PCP Internal Medicine; Visit Provider Internal Medicine
DX: Z12.31 Encounter for screening mammogram for malignant neoplasm of breast (principal)
CPT/HCPCS: 77063; 77067

== ENCOUNTER 2022-09-13 07:52 | Emergency (ER) | payer MEDICAID, SELFPAY ==
--- NOTE | ~2022-09-13 | CT_ITS ---
EXAMINATION: CT ABDOMEN AND PELVIS WITHOUT CONTRAST CLINICAL INFORMATION: Right-sided abdominal pain. COMPARISON: Most recent prior CT of the abdomen and pelvis done on 06/08/2021 and the baseline study done on 10/13/2016. TECHNIQUE: Multidetector volumetric imaging was performed from the superior aspect of the liver through the pubic symphysis. Sagittal and coronal reformatted images were obtained on the technologist's workstation. This CT examination was performed using dose optimization techniques as appropriate, variously including the following: *Automated exposure control *Adjustment of mA and/or kV according to patient size (this includes techniques or standardized protocols for targeted exams where dose is matched to indication/reason for exam; i.e. extremities or head) *Use of iterative reconstruction technique DLP: 1266 mGy-cm FINDINGS: LUNG BASES: The visualized lung bases are unremarkable. LIVER, GALLBLADDER, AND BILIARY TREE: The liver is normal in size, shape, and attenuation. No focal hepatic lesion or biliary ductal dilatation is present. The gallbladder is surgically absent. PANCREAS: Unremarkable. SPLEEN: Unremarkable. ADRENAL GLANDS: Unremarkable. KIDNEYS AND URETERS: The left kidney is not visualized, unchanged since the baseline study, either congenitally or surgically absent. The right kidney is hypertrophied, shows good cortical thickness and no evidence of any urinary tract calculi and/or obstruction or any focal abnormality on this noncontrast study. The pelvicalyceal system and right ureter appear decompressed. BLADDER: Unremarkable. GASTROINTESTINAL TRACT: Postsurgical changes are noted within the small bowel at mid abdomen. The appendix is well-visualized at at the right iliac fossa and is morphologically unremarkable (52 through 59:3). ABDOMINAL WALL: Fat only containing periumbilical hernia is present, unchanged since the baseline study dated 10/13/2016. LYMPH NODES: Normal. VASCULAR: Unremarkable. PELVIC VISCERA: No evidence of any pelvic mass present. Multiple phleboliths are seen. No evidence of any free fluid in the inferior. OSSEOUS STRUCTURES: Moderate degenerative spondylosis at L5-S1. CT/CT abdomen pelvis wo IV con IMPRESSION: No CT evidence of any acute intra-abdominal and/or intrapelvic pathology, relatively stable since 06/08/2021. Specifically, the appendix appears unremarkable. Fleischner guidelines were followed.
[2022-09-13 07:53] VITALS: BP 125/80; PULSE 112; RESP 18; TEMP 37; O2SAT 99; BMI 48.3
[2022-09-13 08:37] LABS: Appearance Urine Cloudy; Color Urine Yellow; Glucose Urine UA Negative (Negative); Leukocyte Esterase Urine Negative (Negative); Nitrite Urine Negative (Negative); Specific Gravity - Urine 1.025 (1.005-1.025); UMIC TRIGGER UACC YES; Urine Blood Negative (Negative); Urine Ketones Trace mg/dL (Negative); Urine Protein 30 (1+) mg/dL (Neg-Trace)
--- NOTE | 2022-09-13 08:41 | PC.NURSE ---
patient a&ox3, pt c/o rt flank pain 8, pt states she has 1 kidney and wanted to r/o an infection, pt has 8/10 pain, urine obtained awaiting provider
[2022-09-13 08:44] LABS: Bacteria Urine None Seen (None Seen); RBC Urine 0-2 /HPF (0-2); WBC Urine 0-5 /HPF (0-5)
[2022-09-13 10:00] VITALS: BP 126/82; PULSE 99; RESP 18; TEMP 36.9; O2SAT 99
[2022-09-13 10:00] LABS: MANUAL DIFF FLAG NO
[2022-09-13 10:02] LABS: Basophils Percent Auto 0.4 % (0-2); Eosinophils Percent Auto 0.4 % (0-4); Imm Gran Abs Auto 0.04 X10*3/uL (0.00-0.03); Imm Gran Pct Auto 0.4 % (0.0-0.4); Lymphocytes Absolute Auto 1.2 X10*3/uL (1.2-4.9); Lymphocytes Percent Auto 10.4 % (20-40); Mean Corpuscular HGB Conc 32.5 g/dl (31.0-35.0); Mean Corpuscular Hemoglobin 27.5 pg (27.0-33.0); Mean Corpuscular Volume 84.7 fL (80.0-98.0); Mean Platelet Volume 9.1 fL (9.4-12.3); Monocytes Absolute Auto 0.7 X10*3/uL (0.1-1.2); Monocytes Percent Auto 6.3 % (2-11); Neutrophils Absolute Auto 9.3 x10*3/uL (2.0-8.3); Neutrophils Percent Auto 82.1 % (45-73); Platelet Count 279 X10*3/uL (160-400); Red Blood Count 4.72 X10*6/uL (4.20-5.50); Red Cell Distribution Width 12.9 % (11.0-16.0); White Blood Count 11.3 X10*3/uL (4.8-10.8)
[2022-09-13] MEDS: 0.9 % Sodium Chloride 1,000 ML 999 ML IVCONT (10:03)
[2022-09-13] MEDS: Ketorolac Tromethamine 30 MG/ML VIAL IVPUSH (10:05)
[2022-09-13 10:06] LABS: Prothrombin Time 11.2 SEC (10.0-13.1)
[2022-09-13] MEDS: ondansetron HCL 4 MG/2 ML VIAL IVPUSH (10:06)
--- NOTE | 2022-09-13 10:08 | PC.NURSE ---
pt difficult stick, attempted iv multiple times, provider aware, 3rd nurse was able to get a 22 in hand, ivf started, pt medicated for pain/nausea, will continue to monitor.
--- NOTE | 2022-09-13 10:17 | ED_ITS ---
HPI - Abdominal Pain General Chief Complaint: General Medical Stated Complaint: fever pain waist and back vomiting Time Seen by Provider: 09/13/22 08:13 Source: patient Mode of arrival: ambulatory Limitations: language barrier (Russian-speaking) History of Present Illness HPI narrative: 47yoF with a PMHx of obesity, hypertension, prediabetes and born with 1 kidney with a PSHX of cholecystectomy who is presenting to the ER with complaints of right-sided abd and flank with associated nausea/vomiting/diarrhea and chills for the past 2 days worse today. She reports she has never had this in the past. She reports she fell proximal 1 month ago and landed on her bilateral knees and was not having hip pain although is unsure if it is related to that fall. She denies any measured fevers, dizziness, headaches, neck pain/stiffness, sore throat, cough, dyspnea on exertion orthopnea palpitations or paresthesias, congestion, back pain, radiation of the abd/flank pain, dysuria, hematuria, abnormal vaginal discharge, black or bloody stools, constipation, recent travel or sick contacts, recent antibiotic usage, others with similar symptoms, possible bad food exposure or any other symptoms complaints or concerns at this time. MD elicited complaint: abdominal pain and flank pain Onset (ago): day(s) (2) Pain Consistency: constant Location: RLQ, R flank and suprapubic Severity: mild Quality: aching Radiation: none Migration to: no migration Exacerbating factors: movement (And palpation) Relieving factors: nothing Associated symptoms: nausea, vomiting, diarrhea and chills Related Data Home Medications Medication Instructions Recorded Confirmed acetaminophen 500 mg tablet 1,000 mg PO Q6H PRN Pain 06/08/21 06/08/21 cholecalciferol (vitamin D3) 25 1 tab PO DAILY 06/08/21 06/08/21 mcg (1,000 unit) tablet (Vitamin D3) lisinopril 20 mg tablet 1 tab PO BID 06/08/21 06/08/21 metformin 500 mg tablet,extended 0 mg PO 01/23/22 release 24 hr Previous Rx's Medication Instructions Recorded aluminum-mag hydroxide-simethicone 10 ml PO Q6H PRN dyspepsia #3,000 06/08/21 200 mg-200 mg-20 mg/5 mL oral susp mL (Maalox Advanced) lidocaine HCl 2 % mucosal solution 1 appl mucous membrane TID PRN 06/08/21 (Lidocaine Viscous) pain #100 mL omeprazole 40 mg capsule,delayed 40 mg PO DAILY@0630 #60 caps 06/10/21 release prednisone 20 mg tablet 20 mg PO DAILY 12 days #26 tabs 01/06/22 acetaminophen 500 mg tablet 1,000 mg PO QID PRN fever or pain 09/13/22 (Tylenol Extra Strength) #14 tabs cyclobenzaprine 10 mg tablet 10 mg PO Q8H #14 tabs 09/13/22 Allergies Allergy/AdvReac Type Severity Reaction Status Date / Time No Known Allergies Allergy Verified 01/23/22 10:24 [No Known Allergies*] Review of Systems Review of Systems Constitutional : No Weight loss, No Fever, + Chills, No Night Sweats, No Fa tigue, No Malaise ENT/Mouth : No Hearing loss, No Ear Pain, No Nasal Congestion, No Sinus Pain, No Hoarseness, No sore throat, No Rhinorrhea, No Swallowing Difficulty Eyes: No Eye Pain, No Swelling, No Redness, No Foreign Body, No Discharge, No Vision Changes Cardiovascular : No Chest Pain, No SOB, No Dyspnea on Exertion, No Orthopnea, No Edema, No Palpitations Respiratory : No Cough, No Sputum, No Wheezing, No Smoke Exposure, No Dyspnea Gastrointestinal : + Nausea, + Vomiting, + Diarrhea, No Constipation, + abdominal Pain, No Hematochezia, No Melena Genitourinary : no irregular bleeding, No Dysuria, No Urinary Frequency, No Hematuria, No Urinary Incontinence, No Urgency, + Flank Pain, No Urinary Flow Changes, No Hesitancy Musculoskeletal : No joint pain, No Myalgias, No Joint Swelling Skin : No Skin Lesions, No rash Neuro : No Weakness, No Numbness, No Paresthesias, No Loss of Consciousness, No Dizziness, No Headache Psych : No Anxiety/Panic, No Depression, No SI/HI/AH/VH, No Social Issues, Heme/Lymph: No Bruising, No Bleeding,No Lymphadenopathy Endocrine : No Polyuria, No Polydipsia, No Temperature Intolerance Yes all other systems are reviewed and are negative [facility] Past Medical History Attestation statement: The following information was validated with the patient. Source: old records reviewed and nursing notes reviewed Medical History FH: cholecystectomy HTN (hypertension) Kidney anomaly, congenital Pre-diabetes Surgical History History of cholecystectomy Previous section Family History Family History Mother Diabetes Social History Social History Household Members: Spouse and Children Housing: Apartment Do you presently have visiting nurse or other home services: No Alcohol intake: never Patient Tobacco Use Status: Never used Tobacco Smoked in Last 30 Days: No Use of substances other than those prescribed or required for medical reasons: No Advance Directives: Yes Advance Directives on File: Yes Advance Directives Date on File: 06/11/21 Patient : No service: No Current occupational status: disabled 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 Blood pressure normal. Heart rate normal. Respiration rate normal. Temperature normal. Oxygen saturation normal. Appearance: Alert. Oriented X3. No acute distress. Head: Normal external exam. Normocephalic. Atraumatic. Eyes: PERRLA. EOMI. Conjunctiva and sclera normal. Eyelids normal. ENT: Pharynx normal. Uvula midline. Moist mucous membranes. No lesions/ulcerations or masses noted on the tongue. Normal voice. No trismus noted. No drooling noted. No muffled voice noted. Neck: Normal inspection. Neck supple. FROM. No adenopathy. Thyroid Normal. No meningeal signs. CVS: Normal heart rate and rhythm. Heart sound normal. Pulses normal throughout. No murmurs/rales/gallops. Respiratory: No respiratory distress. Painless inspiration. Breath sounds normal. No wheezes/rales/rhonchi noted. Chest nontender. No crepitus is noted. No signs of trauma noted. No accessory muscle usage noted or decreased air movement noted. No signs of trauma. Abdomen: Soft and mild TTp of rlq and Right flank. Bowel sounds normal in all 4 quadrants. No distention noted. No organomegaly noted. No visible injury noted. Negative Rovsing test. Negative obturator's test. Negative Vyas's test. Negative obturator's test. Back: No CVA tenderness. Full range of motion noted. Nontender. No signs of trauma. Patient neuro intact bilaterally and distally on all 4 extremities. Patient's reflexes intact bilaterally and distally on all 4 extremities. No rashes/lesion/induration/fluctuance or signs of infection noted. Skin: Skin warm and dry. Normal skin color. Normal skin turgor. No rashes/lesions/lacerations noted. Extremities: No lower extremity edema. No calf tenderness is noted. Extremities exhibit normal range of motion and nontender. Neuro: Oriented X 3. No motor deficit. No sensory deficit. Reflexes normal. Normal steady gait. No focal neuro deficits noted. CN's II-XII intact bilaterally? Vascular: + radial pulses/+ 2 distal pedal pulses/+2 dorsalis pedis b/l. Normal cap refill. No cyanosis noted to upper extremity nails and lower extremity toes nails. Course Course Course Narrative: 9am - This is a 47yoF with Right flank/RLQ pain, most concerning for kidney stone. Differential diagnoses: appendicitis. Abdominal exam without peritoneal signs. No evidence of acute abdomen at this time. Well appearing. Low suspicion for acute hepatobiliary disease (includng acute cholecystitis), acute infectious processes (pneumonia, hepatitis, pyelonephritis), vascular catastrophe, bowel obstruction or viscus perforation. Presentation not consistent with other acute, emergent causes of abdominal pain at this time. Plan: labs, UA, CT AP, pain control, fluids, serial reassessment Reevaluation(s) Reevaluation #1: Labs reviewed - patient leukocytosis of 11,000 - chloride 109 - carbon dioxide 20 - anion gap 11 - UA revealed 30 protein trace of ketones otherwise no evidence of UTI. Otherwise all other labs are within normal limits CT scan abdomen pelvis without IV contrast within normal limits no acute processes are noted only chronic changes. Patient reports she feels better therefore at this time patient most likely muscular skeletal pain. Will DC home with muscle relaxants and Tylenol and instructions return if any new or worsening symptoms. Patient understands agrees with this plan. Time: 11:58 Medical Decision Making Lab Data MDM Lab Attestation statement: I reviewed the patient's lab results. 09/13/22 09:56 09/13/22 09:56 Labs: Lab Results 09/13/22 09/13/22 09/13/22 Range/Units 08:28 09:56 09:56 WBC 11.3 H (4.8-10.8) X10*3/uL RBC 4.72 (4.20-5.50) X10*6/uL Hgb 13.0 (12.0-16.0) g/dl Hct 40.0 (37.0-47.0) % MCV 84.7 (80.0-98.0) fL MCH 27.5 (27.0-33.0) pg MCHC 32.5 (31.0-35.0) g/dl RDW 12.9 (11.0-16.0) % Plt Count 279 (160-400) X10*3/uL MPV 9.1 L (9.4-12.3) fL Immature Gran % (Auto) 0.4 (0.0-0.4) % Neut % (Auto) 82.1 H (45-73) % Lymph % (Auto) 10.4 L (20-40) % [place] % (Auto) 6.3 (2-11) % Eos % (Auto) 0.4 (0-4) % Baso % (Auto) 0.4 (0-2) % Lymph # (Auto) 1.2 (1.2-4.9) X10*3/uL [place] # (Auto) 0.7 (0.1-1.2) X10*3/uL Eos # (Auto) 0.0 (0.0-0.4) X10*3/uL Baso # (Auto) 0.0 (0.0-0.2) X10*3/uL Abs Immat Gran (auto) 0.04 H (0.00-0.03) X10*3/uL Absolute Neuts (auto) 9.3 H (2.0-8.3) x10*3/uL Absolute Nucleated RBC 0.000 (0.0-0.012) X10*3/uL Nucleated RBC % (auto) 0.0 (0.0-0.2) /100WBC PT 11.2 (10.0-13.1) SEC INR 1.0 (0.9-1.1) Sodium (135-145) mmol/L Potassium (3.3-5.1) mmol/L Chloride (96-108) mmol/L Carbon Dioxide (22-29) mmol/L Anion Gap (12-20) BUN (9-16) mg/dL Creatinine (0.5-1.4) mg/dL Estim Creat Clear Calc Estimated GFR Random Glucose (60-115) mg/dL Calcium (8.4-10.2) mg/dL Magnesium (1.6-2.6) mg/dL Total Bilirubin (0.0-1.0) mg/dL AST (5-31) U/L ALT (0-31) U/L Alkaline Phosphatase (39-117) U/L Total Protein (6.5-8.0) g/dL Albumin (3.5-5.0) g/dL Lipase (8-78) U/L Beta HCG, Quant mIU/mL Urine Color Yellow Urine Appearance Cloudy Urine pH 6.0 (5.0-9.0) Ur Specific [place] 1.025 (1.005-1.025) Urine Protein 30 (1+) H (Neg-Trace) mg/dL Urine Glucose (UA) Negative (Negative) mg/dL Urine Ketones Trace (Negative) mg/dL Urine Blood Negative (Negative) Urine Nitrite Negative (Negative) Ur Leukocyte Esterase Negative (Negative) Urine RBC 0-2 (0-2) /HPF Urine WBC 0-5 (0-5) /HPF Ur Squamous Epith Cells 3-5 (0-2) /HPF Urine Bacteria None Seen (None Seen) Hyaline Casts 3-5 (0-2) /LPF 09/13/22 Range/Units 09:56 WBC (4.8-10.8) X10*3/uL RBC (4.20-5.50) X10*6/uL Hgb (12.0-16.0) g/dl Hct (37.0-47.0) % MCV (80.0-98.0) fL MCH (27.0-33.0) pg MCHC (31.0-35.0) g/dl RDW (11.0-16.0) % Plt Count (160-400) X10*3/uL MPV (9.4-12.3) fL Immature Gran % (Auto) (0.0-0.4) % Neut % (Auto) (45-73) % Lymph % (Auto) (20-40) % [place] % (Auto) (2-11) % Eos % (Auto) (0-4) % Baso % (Auto) (0-2) % Lymph # (Auto) (1.2-4.9) X10*3/uL [place] # (Auto) (0.1-1.2) X10*3/uL Eos # (Auto) (0.0-0.4) X10*3/uL Baso # (Auto) (0.0-0.2) X10*3/uL Abs Immat Gran (auto) (0.00-0.03) X10*3/uL Absolute Neuts (auto) (2.0-8.3) x10*3/uL Absolute Nucleated RBC (0.0-0.012) X10*3/uL Nucleated RBC % (auto) (0.0-0.2) /100WBC PT (10.0-13.1) SEC INR (0.9-1.1) Sodium 136 (135-145) mmol/L Potassium 4.3 (3.3-5.1) mmol/L Chloride 109 H (96-108) mmol/L Carbon Dioxide 20 L (22-29) mmol/L Anion Gap 11 L (12-20) BUN 10 (9-16) mg/dL Creatinine 0.83 (0.5-1.4) mg/dL Estim Creat Clear Calc 113.6 Estimated GFR > 60 Random Glucose 103 (60-115) mg/dL Calcium 9.0 (8.4-10.2) mg/dL Magnesium 1.8 (1.6-2.6) mg/dL Total Bilirubin 0.9 (0.0-1.0) mg/dL AST 22 (5-31) U/L ALT 24 (0-31) U/L Alkaline Phosphatase 105 (39-117) U/L Total Protein 6.9 (6.5-8.0) g/dL Albumin 3.7 (3.5-5.0) g/dL Lipase 11 (8-78) U/L Beta HCG, Quant < 2 mIU/mL Urine Color Urine Appearance Urine pH (5.0-9.0) Ur Specific [place] (1.005-1.025) Urine Protein (Neg-Trace) mg/dL Urine Glucose (UA) (Negative) mg/dL Urine Ketones (Negative) mg/dL Urine Blood (Negative) Urine Nitrite (Negative) Ur Leukocyte Esterase (Negative) Urine RBC (0-2) /HPF Urine WBC (0-5) /HPF Ur Squamous Epith Cells (0-2) /HPF Urine Bacteria (None Seen) Hyaline Casts (0-2) /LPF Independent Interpretation I performed an independent interpretation of an: CT Scan (CT scan of abdomen pelvis without IV contrast you by myself agreeable radiology report) Radiology Impression Discussion of test interpretation with radiology: I have reviewed the radiologist's reading. Radiologist Impression: FINDINGS: LUNG BASES: The visualized lung bases are unremarkable.? LIVER, GALLBLADDER, AND BILIARY TREE: The liver is normal in size, shape, and attenuation. No focal hepatic lesion or biliary ductal dilatation is present. The gallbladder is surgically absent.? PANCREAS: Unremarkable.? SPLEEN: Unremarkable.? ADRENAL GLANDS: Unremarkable.? KIDNEYS AND URETERS: The left kidney is not visualized, unchanged since the baseline study, either congenitally or surgically absent. The right kidney is hypertrophied, shows good cortical thickness and no evidence of any urinary tract calculi and/or obstruction or any focal abnormality on this noncontrast study. The pelvicalyceal system and right ureter appear decompressed.? BLADDER: Unremarkable.? GASTROINTESTINAL TRACT: Postsurgical changes are noted within the small bowel at mid abdomen. The appendix is well-visualized at at the right iliac fossa and is morphologically unremarkable (52 through 59:3). ABDOMINAL WALL: Fat only containing periumbilical hernia is present, unchanged since the baseline study dated 10/13/2016.? LYMPH NODES: Normal. VASCULAR: Unremarkable. PELVIC VISCERA: No evidence of any pelvic mass present. Multiple phleboliths are seen. No evidence of any free fluid in the inferior.? OSSEOUS STRUCTURES: Moderate degenerative spondylosis at L5-S1.? CT/CT abdomen pelvis wo IV con IMPRESSION: No CT evidence of any acute intra-abdominal and/or intrapelvic pathology, relatively stable since 06/08/2021. Specifically, the appendix appears unremarkable. ? Fleischner guidelines were followed. External Record Review External record reviewed: Inpatient record, Office record, Outpatient record, Prior outpatient labs, Prior outpatient radiology, Primary care record and Out side ED record All prior labs/imaging/notes in patient outpatient that are accessible in our system reviewed by myself Prescription Management I considered prescription management with: Pain Medication (Tylenol and Flexeril) Chronic Conditions Patient?s care impacted by: Hypertension Medications Administered Discontinued Medications Generic Name Dose Route Start Last Admin Trade Name Freq PRN Reason Stop Dose Admin Sodium Chloride 1,000 mls @ 999 mls/hr 09/13/22 09:00 09/13/22 10:03 Ns IVCONT 09/13/22 10:00 999 mls/hr .Q1H1M KYE Administration Ketorolac Tromethamine 30 mg 09/13/22 08:58 09/13/22 10:05 Ketorolac Tromethamine 30 Mg/Ml Vial IVPUSH 09/13/22 08:59 30 mg ONCE ONE Administration Ondansetron HCl 4 mg 09/13/22 08:58 09/13/22 10:06 Ondansetron Hcl 4 Mg/2 Ml Vial IVPUSH 09/13/22 08:59 4 mg ONCE ONE Administration Discharge Plan Discharge Clinical Impression: Right sided abdominal pain, Nausea & vomiting, Diarrhea, Gastroenteritis Patient Disposition: Home, Self-Care Instructions: Gastroenteritis (ED), Acute Abdominal Pain (DC) Prescriptions: New acetaminophen [Tylenol Extra Strength] 500 mg tablet 1,000 mg PO QID PRN (Reason: fever or pain) Qty: 14 0RF cyclobenzaprine 10 mg tablet 10 mg PO Q8H Qty: 14 0RF No Action lidocaine HCl [Lidocaine Viscous] 2 % solution 1 appl mucous membrane TID PRN (Reason: pain) Qty: 100 0RF alum-mag hydroxide-simeth [Maalox Advanced] 200-200-20 mg/5 mL suspension 10 ml PO Q6H PRN (Reason: dyspepsia) Qty: 3000 0RF lisinopril 20 mg tablet 1 tab PO BID cholecalciferol (vitamin D3) [Vitamin D3] 25 mcg (1,000 unit) tablet 1 tab PO DAILY acetaminophen 500 mg Tablet 1,000 mg PO Q6H PRN (Reason: Pain) omeprazole 40 mg Capsule,Delayed Release(Dr/Ec) 40 mg PO DAILY@0630 Qty: 60 0RF prednisone 20 mg tablet 20 mg PO DAILY 12 Days Qty: 26 0RF Rx Instructions: Take 3 tablets for 5 days THEN; Take 2 tablets for 4 days THEN; Take 1 tablet for 3 days metformin 500 mg tablet extended release 24 hr 0 mg PO Referrals: Neal Desir MD [Primary Care Provider] - 2 days Print Language: Russian
[2022-09-13 10:28] LABS: Alanine Aminotransferase 24 U/L (0-31); Albumin Level 3.7 g/dL (3.5-5.0); Alkaline Phosphatase 105 U/L (39-117); Anion Gap 11 (12-20); Aspartate Amino Transferase 22 U/L (5-31); Bilirubin Total 0.9 mg/dL (0.0-1.0); Blood Urea Nitrogen 10 mg/dL (9-16); Carbon Dioxide 20 mmol/L (22-29); Chloride 109 mmol/L (96-108); Creatinine Clr Calc Pharmacy 113.6; Estimated Glomerular Filt Rate > 60; Glucose Random 103 mg/dL (60-115); HCG Quantitative < 2 mIU/mL; Lipase 11 U/L (8-78); Magnesium 1.8 mg/dL (1.6-2.6); Potassium 4.3 mmol/L (3.3-5.1); Sodium 136 mmol/L (135-145); Total Protein 6.9 g/dL (6.5-8.0)
[2022-09-13 12:00] VITALS: BP 111/64; PULSE 95; RESP 18; O2SAT 99
== END 2022-09-13 12:28 | disposition home or self-care (01) ==
PROVIDERS: Physician Assistant Medical; Emergency Provider Emergency Medicine; PCP Internal Medicine
DX: R10.31 Right lower quadrant pain (principal); K52.9 Noninfective gastroenteritis and colitis, unspecified; R11.2 Nausea with vomiting, unspecified; R50.9 Fever, unspecified; I10 Essential (primary) hypertension; E11.9 Type 2 diabetes mellitus without complications; Z79.84 Long term (current) use of oral hypoglycemic drugs; Z79.899 Other long term (current) drug therapy
CPT/HCPCS: 36415; 74176; 80053; 81001; 83690; 83735; 84702; 85025; 85610; 96361; 96374; 96375; 99284; J1885; J2405

== ENCOUNTER 2022-10-25 10:00 | Emergency (ER) | payer MEDICAID, SELFPAY ==
--- NOTE | ~2022-10-25 | XR_ITS ---
EXAMINATION: XR CHEST CLINICAL INFORMATION: Upper airway congestion. COMPARISON: Chest radiograph dated 06/08/2021. TECHNIQUE: Frontal view of the chest was obtained. FINDINGS: The lungs are clear. The cardiomediastinal silhouette is normal in size. There is no pleural effusion or pneumothorax. No acute osseous abnormality. XR/XR chest 1V IMPRESSION: No acute cardiopulmonary findings.
[2022-10-25 10:27] VITALS: BP 148/87; PULSE 98; RESP 16; TEMP 36.2; O2SAT 97; BMI 48.9
[2022-10-25 11:33] LABS: COVID-19 Test Negative (Negative); IDNOW Serial# 9DB6401D
[2022-10-25 11:34] LABS: IDNOW Serial# 08D9AD1C; Influenza A Negative (Negative); Influenza B2 Negative (Negative)
--- NOTE | 2022-10-25 11:35 | ED_ITS ---
HPI - General Adult General Chief complaint: General Medical Stated complaint: body ache sore throat Time Seen by Provider: 10/25/22 10:52 History of Present Illness HPI narrative: patient complains of cough fever runny nose body aches, cough is worsening over last several days and now productive of sputum There is no chest pain no shortness of breath no abdominal pain no nausea vomiting or diarrhea no skin rash no headache no stiff neck no sore throat Related Data Home Medications Medication Instructions Recorded Confirmed acetaminophen 500 mg tablet 1,000 mg PO Q6H PRN Pain 06/08/21 06/08/21 cholecalciferol (vitamin D3) 25 1 tab PO DAILY 06/08/21 06/08/21 mcg (1,000 unit) tablet (Vitamin D3) lisinopril 20 mg tablet 1 tab PO BID 06/08/21 06/08/21 metformin 500 mg tablet,extended 0 mg PO 01/23/22 release 24 hr Previous Rx's Medication Instructions Recorded aluminum-mag hydroxide-simethicone 10 ml PO Q6H PRN dyspepsia #3,000 06/08/21 200 mg-200 mg-20 mg/5 mL oral susp mL (Maalox Advanced) lidocaine HCl 2 % mucosal solution 1 appl mucous membrane TID PRN 06/08/21 (Lidocaine Viscous) pain #100 mL omeprazole 40 mg capsule,delayed 40 mg PO DAILY@0630 #60 caps 06/10/21 release prednisone 20 mg tablet 20 mg PO DAILY 12 days #26 tabs 01/06/22 acetaminophen 500 mg tablet 1,000 mg PO QID PRN fever or pain 09/13/22 (Tylenol Extra Strength) #14 tabs cyclobenzaprine 10 mg tablet 10 mg PO Q8H #14 tabs 09/13/22 benzonatate 200 mg capsule 200 mg PO BID PRN cough #10 caps 10/25/22 doxycycline hyclate 100 mg capsule 100 mg PO BID 7 days #14 caps 10/25/22 Allergies Allergy/AdvReac Type Severity Reaction Status Date / Time No Known Allergies Allergy Verified 01/23/22 10:24 [No Known Allergies*] [facility] Past Medical History Source: nursing notes reviewed Medical History FH: cholecystectomy HTN (hypertension) Kidney anomaly, congenital Pre-diabetes Surgical History History of cholecystectomy Previous section Family History Family History Mother Diabetes Social History Social History Household Members: Spouse and Children Housing: Apartment Do you presently have visiting nurse or other home services: No Alcohol intake: never Patient Tobacco Use Status: Never used Tobacco Advance Directives: Yes Advance Directives on File: Yes Advance Directives Date on File: 06/11/21 service: No Current occupational status: disabled 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 Physical Exam ED Vital Signs: Vital Signs - 24 hr 10/25/22 10:27 Temperature 97.2 F Pulse Rate 98 Respiratory Rate 16 Blood Pressure 148/87 H Pulse Oximetry 97 Oxygen Delivery Method Room Air BMI result Body Mass Index 48.9 general appearance no distress Eyes no redness or discharge The sinuses nontender The pharynx is clear without redness swelling or exudate voice normal membranes moist Neck is supple Chest clear to auscultation bilateral Heart no murmur Abdomen soft nontender Extremities no edema no calf tenderness no calf swelling Skin no rash Course Course Course Narrative: chest x-ray COVID and flu tests were negative Patient is treated with antibiotic doxycycline for possible bacterial bronchitis Patient is otherwise well appearing ambulatory speaking full sentences and is discharged Medical Decision Making Lab Data Labs: Lab Results 10/25/22 10/25/22 Range/Units 11:07 11:07 COVID-19 (NIKIA) Negative (Negative) COVID-19 Clin Com See Note Influenza Type A (DARRELL) Negative (Negative) Influenza Type B (DARRELL) Negative (Negative) Influenza A & B Note See Note Discharge Plan Discharge Clinical Impression: Bronchitis Patient Disposition: Home, Self-Care Additional Instructions: x-ray did not show an obvious pneumonia, COVID and flu tests were negative But as cough is worsening we are prescribing doxycycline antibiotic in case it is a bacterial bronchitis Return any time for difficulty breathing any worse condition or any concerns Follow with primary doctor next week if not better Prescriptions: New benzonatate 200 mg capsule 200 mg PO BID PRN (Reason: cough) Qty: 10 0RF doxycycline hyclate 100 mg capsule 100 mg PO BID 7 Days Qty: 14 0RF No Action lidocaine HCl [Lidocaine Viscous] 2 % solution 1 appl mucous membrane TID PRN (Reason: pain) Qty: 100 0RF alum-mag hydroxide-simeth [Maalox Advanced] 200-200-20 mg/5 mL suspension 10 ml PO Q6H PRN (Reason: dyspepsia) Qty: 3000 0RF lisinopril 20 mg tablet 1 tab PO BID cholecalciferol (vitamin D3) [Vitamin D3] 25 mcg (1,000 unit) tablet 1 tab PO DAILY acetaminophen 500 mg Tablet 1,000 mg PO Q6H PRN (Reason: Pain) omeprazole 40 mg Capsule,Delayed Release(Dr/Ec) 40 mg PO DAILY@0630 Qty: 60 0RF prednisone 20 mg tablet 20 mg PO DAILY 12 Days Qty: 26 0RF Rx Instructions: Take 3 tablets for 5 days THEN; Take 2 tablets for 4 days THEN; Take 1 tablet for 3 days acetaminophen [Tylenol Extra Strength] 500 mg tablet 1,000 mg PO QID PRN (Reason: fever or pain) Qty: 14 0RF cyclobenzaprine 10 mg tablet 10 mg PO Q8H Qty: 14 0RF metformin 500 mg tablet extended release 24 hr 0 mg PO Interventions: ED Discharge Assessment Last Done: 10/25/22 11:42 Discharge Date/Time: 10/25/22 11:44
== END 2022-10-25 11:44 | disposition home or self-care (01) ==
PROVIDERS: Emergency Provider Emergency Medicine; PCP Internal Medicine
DX: J40 Bronchitis, not specified as acute or chronic (principal); Z20.822 Contact with and (suspected) exposure to COVID-19; E11.9 Type 2 diabetes mellitus without complications; I10 Essential (primary) hypertension; Z79.84 Long term (current) use of oral hypoglycemic drugs; Z79.899 Other long term (current) drug therapy
CPT/HCPCS: 71045; 87502; 87635; 99282; 99283

== ENCOUNTER 2023-04-29 09:12 | Outpatient (REF) | payer MEDICAID, SELFPAY | END 2023-04-29 09:13 | disposition home or self-care (01) | LOC: HO.MAMMO 09:12 | PROVIDERS: PCP Internal Medicine; Visit Provider Internal Medicine | DX: Z12.31 Encounter for screening mammogram for malignant neoplasm of breast (principal) | CPT/HCPCS: 77063; 77067 ==

== ENCOUNTER → 2023-04-29 09:30 | Outpatient (BNV) | payer MEDICAID, SELFPAY | PROVIDERS: PCP Internal Medicine; Visit Provider Radiology Diagnostic Radiology | DX: Z12.31 Encounter for screening mammogram for malignant neoplasm of breast (principal) | CPT/HCPCS: 77063; 77067 ==

== ENCOUNTER 2023-05-05 08:06 | Emergency (ER) | payer MEDICAID, SELFPAY ==
--- NOTE | ~2023-05-05 | CT_ITS ---
EXAMINATION: CT ABDOMEN AND PELVIS WITHOUT CONTRAST CLINICAL INFORMATION: Left-sided flank pain COMPARISON: CT scan abdomen pelvis September 13, 2022 TECHNIQUE: Multidetector volumetric imaging was performed from the superior aspect of the liver through the pubic symphysis. Sagittal and coronal reformatted images were obtained on the technologist's workstation. This CT examination was performed using dose optimization techniques as appropriate, variously including the following: *Automated exposure control *Adjustment of mA and/or kV according to patient size (this includes techniques or standardized protocols for targeted exams where dose is matched to indication/reason for exam; i.e. extremities or head) *Use of iterative reconstruction technique DLP: 1261 mGy-cm FINDINGS: LUNG BASES: The visualized lung bases are unremarkable. LIVER, GALLBLADDER, AND BILIARY TREE: The liver is normal in size, shape, and attenuation. No focal hepatic lesion or biliary ductal dilatation is present. Status post cholecystectomy PANCREAS: Unremarkable. SPLEEN: Unremarkable. ADRENAL GLANDS: Unremarkable. KIDNEYS AND URETERS: No visualized left kidney. Right kidney is hypertrophied. Right kidney measures 15 cm of length. No renal or ureteral calculus. No hydronephrosis. BLADDER: Unremarkable. GASTROINTESTINAL TRACT: Stable postsurgical changes of mid abdominal small bowel loop. No acute abnormality of the bowel. No bowel obstruction. No bowel wall thickening or edema. Moderate volume scattered stool in colon. The appendix is normal. ABDOMINAL WALL: There is a ventral wall hernia just superior to the umbilicus. Defect in the abdominal wall measuring 2.3 cm transverse. Herniated fat pocket measures 7.1 x 3.4 x 4.8 cm. LYMPH NODES: Normal. VASCULAR: Unremarkable. PELVIC VISCERA: Unremarkable. OSSEOUS STRUCTURES: Degenerative vacuum disc with vertebral endplate spurring and sclerosis L5-S1. Marginal endplate spurs of the visualized lower thoracic vertebrae. CT/CT abdomen pelvis wo IV con IMPRESSION: 1. No acute abnormality CT scan abdomen pelvis. 2. Absent left kidney. Hypertrophied right kidney. No renal or ureteral calculus. No hydronephrosis. 3. Status post cholecystectomy. 4. Stable postsurgical changes of small bowel. No acute abnormality of the bowel. 5. Ventral wall hernia containing fat. Fleischner guidelines were followed.
[2023-05-05 08:31] VITALS: BP 128/78; PULSE 77; RESP 18; TEMP 36.2; O2SAT 99; BMI 50.5
--- NOTE | 2023-05-05 08:36 | ECG_ITS ---
Test Reason : lt arm pain Blood Pressure : / mmHG Vent. Rate : 072 BPM Atrial Rate : 072 BPM P-R Int : 168 ms QRS Dur : 086 ms QT Int : 392 ms P-R-T Axes : 039 -10 018 degrees QTc Int : 429 ms Normal sinus rhythm Minimal voltage criteria for LVH, may be normal variant ( R in aVL ) Borderline ECG When compared with ECG of 08-JUN-2021 10:03, No significant change was found Referred By: Generic ED Physician Electronically Signed By:Luis Lloyd
[2023-05-05 09:22] LABS: Appearance Urine Clear; Color Urine Yellow; Glucose Urine UA Negative (Negative); Leukocyte Esterase Urine Negative (Negative); Nitrite Urine Negative (Negative); PH 5.5 (5.0-9.0); Urine Blood Negative (Negative); Urine Ketones Negative (Negative); Urine Protein Negative (Neg-Trace)
[2023-05-05 15:16] VITALS: BP 134/79; PULSE 87; RESP 18; TEMP 36.8; O2SAT 100
[2023-05-05 15:28] LABS: MANUAL DIFF FLAG NO
[2023-05-05 15:30] LABS: Basophils Absolute Auto 0.1 X10*3/uL (0.0-0.2); Basophils Percent Auto 0.5 % (0-2); Eosinophils Absolute Auto 0.2 X10*3/uL (0.0-0.4); Eosinophils Percent Auto 2.2 % (0-4); Hematocrit 38.3 % (37.0-47.0); Hemoglobin 12.8 g/dl (12.0-16.0); Imm Gran Abs Auto 0.03 X10*3/uL (0.00-0.03); Imm Gran Pct Auto 0.3 % (0.0-0.4); Lymphocytes Absolute Auto 2.4 X10*3/uL (1.2-4.9); Lymphocytes Percent Auto 24.3 % (20-40); Mean Corpuscular HGB Conc 33.4 g/dl (31.0-35.0); Mean Corpuscular Hemoglobin 27.5 pg (27.0-33.0); Mean Corpuscular Volume 82.4 fL (80.0-98.0); Mean Platelet Volume 9.2 fL (9.4-12.3); Monocytes Absolute Auto 0.6 X10*3/uL (0.1-1.2); Neutrophils Absolute Auto 6.6 x10*3/uL (2.0-8.3); Neutrophils Percent Auto 66.7 % (45-73); Platelet Count 305 X10*3/uL (160-400); Red Blood Count 4.65 X10*6/uL (4.20-5.50); Red Cell Distribution Width 13.3 % (11.0-16.0); White Blood Count 9.9 X10*3/uL (4.8-10.8)
[2023-05-05 15:46] LABS: Alanine Aminotransferase 31 U/L (0-31); Alkaline Phosphatase 117 U/L (39-117); Anion Gap 15 (12-20); Aspartate Amino Transferase 25 U/L (5-31); Bilirubin Total 0.3 mg/dL (0.0-1.0); Blood Urea Nitrogen 10 mg/dL (9-16); Calcium 9.7 mg/dL (8.4-10.2); Carbon Dioxide 23 mmol/L (22-29); Chloride 106 mmol/L (96-108); Estimated Glomerular Filt Rate > 60; Glucose Random 121 mg/dL (60-115); Lipase 16 U/L (8-78); Potassium 3.8 mmol/L (3.3-5.1); Sodium 140 mmol/L (135-145); Total Protein 7.7 g/dL (6.5-8.0)
--- NOTE | 2023-05-05 16:53 | ED.GENADULT ---
HPI - General Adult General Chief complaint: General Medical Stated complaint: Back pain/L flank pain Time Seen by Provider: 05/05/23 16:44 History of Present Illness HPI narrative: Patient is 48 years old presents today with having abdominal pain to the left flank area radiating to the left lower quadrant. Status post cholecystectomy status post tubal ligation over 15-20 years ago. History of hypertension history of pre diabetes. No coughing or congestion or upper respiratory symptoms. No diaphoresis. Patient from home. The pain is not made worse with movement. There was no trauma. No history of diverticulitis. Never had a colonoscopy. Related Data Home Medications Medication Instructions Recorded Confirmed acetaminophen 500 mg tablet 1,000 mg PO Q6H PRN Pain 06/08/21 06/08/21 cholecalciferol (vitamin D3) 25 1 tab PO DAILY 06/08/21 06/08/21 mcg (1,000 unit) tablet (Vitamin D3) lisinopril 20 mg tablet 1 tab PO BID 06/08/21 06/08/21 metformin 500 mg tablet,extended 0 mg PO 01/23/22 release 24 hr Previous Rx's Medication Instructions Recorded aluminum-mag hydroxide-simethicone 10 ml PO Q6H PRN dyspepsia #3,000 06/08/21 200 mg-200 mg-20 mg/5 mL oral susp mL (Maalox Advanced) lidocaine HCl 2 % mucosal solution 1 appl mucous membrane TID PRN 06/08/21 (Lidocaine Viscous) pain #100 mL omeprazole 40 mg capsule,delayed 40 mg PO DAILY@0630 #60 caps 06/10/21 release prednisone 20 mg tablet 20 mg PO DAILY 12 days #26 tabs 01/06/22 acetaminophen 500 mg tablet 1,000 mg (2 x 500 mg) PO QID PRN 09/13/22 (Tylenol Extra Strength) fever or pain #14 tabs cyclobenzaprine 10 mg tablet 10 mg PO Q8H #14 tabs 09/13/22 benzonatate 200 mg capsule 200 mg PO BID PRN cough #10 caps 10/25/22 doxycycline hyclate 100 mg capsule 100 mg PO BID 7 days #14 caps 10/25/22 Allergies Allergy/AdvReac Type Severity Reaction Status Date / Time No Known Allergies Allergy Verified 01/23/22 10:24 [No Known Allergies*] Review of Systems Review of Systems: Positive left-sided abdominal pain Yes all other systems are reviewed and are negative FOR[facility]LY [facility] Past Medical History Attestation statement: The following information was validated with the patient. Onset Date is defined in the Problem List Problems that require an onset date and time if occurred within 24 hrs of arrival to the ED Aortic Dissection and Rupture; Neurologic impairment; Cardiopulmonary Arrest; Endotracheal Intubation; Insertion or Replacement of Mechanical Circulatory Assist Device Medical History Pre-diabetes Kidney anomaly, congenital FH: cholecystectomy HTN (hypertension) Surgical History History of cholecystectomy Previous section Family History Family History Mother Diabetes Social History Social History Household Members: Spouse and Children Housing: Apartment Do you presently have visiting nurse or other home services: No Alcohol intake: never Patient Tobacco Use Status: Never used Tobacco Advance Directives: Yes Advance Directives on File: Yes Advance Directives Date on File: 06/11/21 service: No Current occupational status: disabled 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 Oriented X3. No acute distress. Eyes: Pupils equal, round and reactive to light. ENT: Pharynx normal. Neck: Normal inspection. Neck supple. No lymph nodes noted. No crepitus CVS: Normal heart rate and rhythm. Pulses normal. Normal S1 and S2 Respiratory: No respiratory distress. Breath sounds normal. No Wheezing. No rales Abdomen: Soft and nontender. No rigidity. No distention. good BS x4 Skin: Skin warm and dry. Normal skin color. Normal skin turgor. Extremities: No lower extremity edema. Neurovascular intact to all extremities. No Lacerations. No Rash Neuro: Oriented X 3. No motor deficit. No sensory deficit. Moving all extermities. No slurred speech Medical Decision Making Medical Decision Making MDM Narrative: Positive abdominal pain in the left flank radiating to the left lower quadrant area. Question pain on urination. Patient's UA was grossly negative. There is no evidence for UTI it is no blood in the urine no history kidney stone. Patient's electrolytes are normal. A sugar is 121. LFTs are normal. There is no evidence for biliary disease. Patient's lipase is 16 there is no evidence for pancreatitis. Patient's urine negative for infection. There is no protein in the urine. A CT scan was ordered as patient persistently have abdominal pain on the left side for last 4 days. I reviewed the radiology reading of the CT scan abdomen pelvis. There is no evidence for obstruction abscess perforation. There is no evidence for diverticulitis. The left kidney is hypertrophied. There is no evidence of kidney stone. Patient is well-appearing. Will discharge patient home. Motrin for pain. Close follow-up on an outpatient basis. Differential Diagnosis Differential Diagnoses: The differential diagnosis associated with the presentation includes Diverticulitis, kidney stones, bowel obstruction, abscess, pancreatitis, gastritis, nonspecific musculoskeletal pain Admission/Observation Consideration of admission/observation: Escalation of care including admission/observation considered At this time patient well appearing no need to admit patient Lab Data [facility] Lab Attestation statement: I reviewed the patient's lab results. 05/05/23 15:23 05/05/23 15:23 Labs: Lab Results 05/05/23 05/05/23 Range/Units 09:16 15:23 WBC 9.9 (4.8-10.8) X10*3/uL RBC 4.65 (4.20-5.50) X10*6/uL Hgb 12.8 (12.0-16.0) g/dl Hct 38.3 (37.0-47.0) % MCV 82.4 (80.0-98.0) fL MCH 27.5 (27.0-33.0) pg MCHC 33.4 (31.0-35.0) g/dl RDW 13.3 (11.0-16.0) % Plt Count 305 (160-400) X10*3/uL MPV 9.2 L (9.4-12.3) fL Immature Gran % (Auto) 0.3 (0.0-0.4) % Neut % (Auto) 66.7 (45-73) % Lymph % (Auto) 24.3 (20-40) % [place] % (Auto) 6.0 (2-11) % Eos % (Auto) 2.2 (0-4) % Baso % (Auto) 0.5 (0-2) % Lymph # (Auto) 2.4 (1.2-4.9) X10*3/uL [place] # (Auto) 0.6 (0.1-1.2) X10*3/uL Eos # (Auto) 0.2 (0.0-0.4) X10*3/uL Baso # (Auto) 0.1 (0.0-0.2) X10*3/uL Abs Immat Gran (auto) 0.03 (0.00-0.03) X10*3/uL Absolute Neuts (auto) 6.6 (2.0-8.3) x10*3/uL Absolute Nucleated RBC 0.000 (0.0-0.012) X10*3/uL Nucleated RBC % (auto) 0.0 (0.0-0.2) /100WBC Sodium 140 (135-145) mmol/L Potassium 3.8 (3.3-5.1) mmol/L Chloride 106 (96-108) mmol/L Carbon Dioxide 23 (22-29) mmol/L Anion Gap 15 (12-20) BUN 10 (9-16) mg/dL Creatinine 0.78 (0.5-1.4) mg/dL Estim Creat Clear Calc 123.0 Estimated GFR > 60 Random Glucose 121 H (60-115) mg/dL Calcium 9.7 D (8.4-10.2) mg/dL Total Bilirubin 0.3 (0.0-1.0) mg/dL AST 25 (5-31) U/L ALT 31 (0-31) U/L Alkaline Phosphatase 117 (39-117) U/L Total Protein 7.7 (6.5-8.0) g/dL Albumin 4.0 (3.5-5.0) g/dL Lipase 16 (8-78) U/L Urine Color Yellow Urine Appearance Clear Urine pH 5.5 (5.0-9.0) Ur Specific [place] 1.020 (1.005-1.025) Urine Protein Negative (Neg-Trace) mg/dL Urine Glucose (UA) Negative (Negative) mg/dL Urine Ketones Negative (Negative) mg/dL Urine Blood Negative (Negative) Urine Nitrite Negative (Negative) Ur Leukocyte Esterase Negative (Negative) Independent Interpretation I performed an independent interpretation of an: CT Scan (No kidney stones noted no obstruction) Radiology Impression Discussion of test interpretation with radiology: I have reviewed the radiologist's reading. Prescription Management I considered prescription management with: Pain Medication No additional pain medication needed will have patient take Motrin for now Discharge Plan Discharge Clinical Impression: Acute flank pain Patient Disposition: Home, Self-Care Instructions: Flank Pain (ED) Prescriptions: No Action lidocaine HCl [Lidocaine Viscous] 2 % solution 1 appl mucous membrane TID PRN (Reason: pain) Qty: 100 0RF alum-mag hydroxide-simeth [Maalox Advanced] 200-200-20 mg/5 mL suspension 10 ml PO Q6H PRN (Reason: dyspepsia) Qty: 3000 0RF lisinopril 20 mg tablet 1 tab PO BID cholecalciferol (vitamin D3) [Vitamin D3] 25 mcg (1,000 unit) tablet 1 tab PO DAILY acetaminophen 500 mg Tablet 1,000 mg PO Q6H PRN (Reason: Pain) omeprazole 40 mg Capsule,Delayed Release(Dr/Ec) 40 mg PO DAILY@0630 Qty: 60 0RF prednisone 20 mg tablet 20 mg PO DAILY 12 Days Qty: 26 0RF Rx Instructions: Take 3 tablets for 5 days THEN; Take 2 tablets for 4 days THEN; Take 1 tablet for 3 days acetaminophen [Tylenol Extra Strength] 500 mg tablet 1,000 mg PO QID PRN (Reason: fever or pain) Qty: 14 0RF cyclobenzaprine 10 mg tablet 10 mg PO Q8H Qty: 14 0RF benzonatate 200 mg capsule 200 mg PO BID PRN (Reason: cough) Qty: 10 0RF doxycycline hyclate 100 mg capsule 100 mg PO BID 7 Days Qty: 14 0RF metformin 500 mg tablet extended release 24 hr 0 mg PO Referrals: [facility] [Primary Care Provider] - Print Language: Burkinan
== END 2023-05-05 19:45 | disposition home or self-care (01) ==
PROVIDERS: Emergency Provider Emergency Medicine Emergency Medical Services
DX: R10.9 Unspecified abdominal pain (principal); E11.9 Type 2 diabetes mellitus without complications; I10 Essential (primary) hypertension; Q63.9 Congenital malformation of kidney, unspecified; E66.9 Obesity, unspecified; Z68.43 Body mass index [BMI] 50.0-59.9, adult; Z79.84 Long term (current) use of oral hypoglycemic drugs; Z79.899 Other long term (current) drug therapy
CPT/HCPCS: 36415; 74176; 80053; 81003; 83690; 85025; 93005; 99284

== ENCOUNTER → 2023-05-05 08:36 | Outpatient (BNV) | payer MEDICAID, SELFPAY | PROVIDERS: Visit Provider Internal Medicine Cardiovascular Disease | DX: M79.602 Pain in left arm (principal) | CPT/HCPCS: 93010 ==

== ENCOUNTER 2023-05-27 13:58 | Outpatient (AMB) | payer MEDICAID, SELFPAY ==
[2023-05-27 14:34] VITALS: BP 124/80; PULSE 85; O2SAT 99; BMI 50.8
--- NOTE | 2023-05-27 14:34 | HO.NEPHOV_ITS ---
HPI HPI Comments History of Present Illness Details I had the privilege of seeing Simi accompanied by her in the office today. She follows up with me for proteinuria, congenital solitary kidney and hypertension. She is compliant with medications. She has not lost a lot of weight. Her blood pressure has been at goal. She is tolerating lisinopril well without any side effects. She does not have any significant proteinuria by recent lab work. Her renal functions are stable. She recently had a imaging of the abdomen which showed unremarkable solitary kidney. All other systems have been reviewed and were negative. 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 Vital Signs 05/27/23 14:34 Height 5 ft 5 in Weight 305 lb 6 oz BMI 50.8 BP 124/80 Blood Pressure Location Rt brachial Position Sitting Pulse 85 Pulse Source Pulse Oximeter Pulse Oximetry (%) 99 Oxygen Delivery Method Room Air Physical Exam Vital Signs: Last Vital Signs Pulse 85 05/27/23 14:34 BP 124/80 05/27/23 14:34 Pulse Ox 99 05/27/23 14:34 Oxygen Delivery Method Room Air 05/27/23 14:34 BMI result Body Mass Index 50.8 Const General: comfortable and no acute distress Orientation/consciousness: patient oriented x3 HEENT Head: Yes normocephalic Mouth: Normal oral and palatal mucosa present Eyes EOM: EOMs intact bilaterally Neck Neck: Yes supple Resp Auscultation: clear to auscultation bilaterally Cardio Jugular venous distension: no JVD Rate: regular rate GI Palpation (GI): Soft to palpation Auscultation: normal bowel sounds General: Yes no CVA tenderness Back/Spine/Pelvis Back: no CVA tenderness Skin General skin exam: no rashes or lesions noted Neuro General: patient oriented x3 and moves all extremities Extrem General: Yes no pedal edema Assessment & Plan Assessment & Plan (1) Solitary kidney, congenital: Code(s): Q60.0 - Renal agenesis, unilateral (2) HTN (hypertension): Code(s): I10 - Essential (primary) hypertension Qualifiers: Hypertension type: primary hypertension Qualified Code(s): I10 - Essential (primary) hypertension (3) Proteinuria: Code(s): R80.9 - Proteinuria, unspecified Qualifiers: Proteinuria type: other Qualified Code(s): R80.8 - Other proteinuria Plan 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 Her eldest son(after the 2 boys) also has congenital absence of right kidney. She had proteinuria in the past which is well controlled on current dose of lisinopril. Her last urine study did not detect any protein. Her blood pressure is at goal. Her electrolytes are acceptable with a stable renal function. She needs to lose weight and continue to have lifestyle modification. I did not make any changes today. All her and her 's questions were answered. Follow-up blood work and urine studies ordered. Follow-up appointment given. Orders: Orders Blood Urea Nitrogen 05/27/23 I10 - Essential (primary) hypertension, Q60.0 - Renal agenesis, unilateral Protein Creatinine Ratio, Ur 05/27/23 I10 - Essential (primary) hypertension, Q60.0 - Renal agenesis, unilateral Electrolytes 05/27/23 I10 - Essential (primary) hypertension, Q60.0 - Renal agenesis, unilateral Creatinine 05/27/23 I10 - Essential (primary) hypertension, Q60.0 - Renal agenesis, unilateral Hemoglobin A1c 05/27/23 I10 - Essential (primary) hypertension, Q60.0 - Renal agenesis, unilateral, R80.9 - Proteinuria, unspecified Coding Level of Care Code Est Pt Level 4 (93996) Diagnoses Solitary kidney, congenital Q60.0 Primary hypertension I10 Hypertension type: primary hypertension Other proteinuria R80.8 Proteinuria type: other Results Reviewed Nephrology Results: Hgb 12.8 g/dl (12.0-16.0) 05/05/23 WBC 9.9 X10*3/uL (4.8-10.8) 05/05/23 Plt Count 305 X10*3/uL (160-400) 05/05/23 Sodium 140 mmol/L (135-145) 05/05/23 Potassium 3.8 mmol/L (3.3-5.1) 05/05/23 Chloride 106 mmol/L (96-108) 05/05/23 Carbon Dioxide 23 mmol/L (22-29) 05/05/23 BUN 10 mg/dL (9-16) 05/05/23 Creatinine 0.78 mg/dL (0.5-1.4) 05/05/23 Calcium 9.7 mg/dL (8.4-10.2) 05/05/23 Urine Protein Negative mg/dL (Neg-Trace) 05/05/23
== END 2023-05-27 15:04 | disposition home or self-care (01) ==
PROVIDERS: Visit Provider Internal Medicine Nephrology
DX: Q60.0 Renal agenesis, unilateral (principal); I10 Essential (primary) hypertension; R80.8 Other proteinuria
CPT/HCPCS: 99214

== ENCOUNTER → 2023-05-27 13:58 | Outpatient (BNVA) | payer MEDICAID, SELFPAY | PROVIDERS: Visit Provider Internal Medicine Nephrology | DX: Q60.0 Renal agenesis, unilateral (principal); I10 Essential (primary) hypertension; R80.8 Other proteinuria | CPT/HCPCS: 99212 ==

== ENCOUNTER 2023-06-09 07:37 | Emergency (ER) | payer MEDICAID, SELFPAY ==
--- NOTE | ~2023-06-09 | XR_ITS ---
EXAMINATION: Bilateral elbow, bilateral hand and wrist. CLINICAL INDICATIONS: Elbow and wrist pain. No trauma. COMPARISON: None. TECHNIQUE: 4 views each hand/wrist. 3 views each elbow. FINDINGS: Bilateral hand/wrist: The visualized carpal bones are intact with normal alignment. No fracture or dislocation seen. Visualized metacarpals and phalanges are normal. There is mild loss of PIP and DIP joints but no periarticular erosive changes or spurring. The soft tissues are normal. Bilateral elbow: The joint space is maintained normal. No bony erosive changes, loose bodies or fracture seen. The anterior and posterior fat pad sign is normal. XR/XR hand wrist LT IMPRESSION: Mild loss of PIP and DIP joints both hands likely early degenerative changes. No acute fracture, dislocation or bony erosive changes. No soft tissue swelling.. Unremarkable bilateral elbow exam.
--- NOTE | ~2023-06-09 | XR_ITS ---
EXAMINATION: Bilateral elbow, bilateral hand and wrist. CLINICAL INDICATIONS: Elbow and wrist pain. No trauma. COMPARISON: None. TECHNIQUE: 4 views each hand/wrist. 3 views each elbow. FINDINGS: Bilateral hand/wrist: The visualized carpal bones are intact with normal alignment. No fracture or dislocation seen. Visualized metacarpals and phalanges are normal. There is mild loss of PIP and DIP joints but no periarticular erosive changes or spurring. The soft tissues are normal. Bilateral elbow: The joint space is maintained normal. No bony erosive changes, loose bodies or fracture seen. The anterior and posterior fat pad sign is normal. XR/XR hand wrist RT IMPRESSION: Mild loss of PIP and DIP joints both hands likely early degenerative changes. No acute fracture, dislocation or bony erosive changes. No soft tissue swelling.. Unremarkable bilateral elbow exam.
--- NOTE | ~2023-06-09 | XR_ITS ---
EXAMINATION: Bilateral elbow, bilateral hand and wrist. CLINICAL INDICATIONS: Elbow and wrist pain. No trauma. COMPARISON: None. TECHNIQUE: 4 views each hand/wrist. 3 views each elbow. FINDINGS: Bilateral hand/wrist: The visualized carpal bones are intact with normal alignment. No fracture or dislocation seen. Visualized metacarpals and phalanges are normal. There is mild loss of PIP and DIP joints but no periarticular erosive changes or spurring. The soft tissues are normal. Bilateral elbow: The joint space is maintained normal. No bony erosive changes, loose bodies or fracture seen. The anterior and posterior fat pad sign is normal. XR/XR elbow LT min 3V IMPRESSION: Mild loss of PIP and DIP joints both hands likely early degenerative changes. No acute fracture, dislocation or bony erosive changes. No soft tissue swelling.. Unremarkable bilateral elbow exam.
--- NOTE | ~2023-06-09 | US_ITS ---
EXAMINATION: US VENOUS WITH DOPPLER UPPER EXTREMITY, BILATERAL CLINICAL INFORMATION: Upper extremity swelling/pain COMPARISON: None available. TECHNIQUE: Ultrasound of the upper extremity is performed using compression sonography and color and pulse Doppler flow with assessment of augmentation of flow. There is also imaging and Doppler assessment of the jugular and subclavian veins. Spectral analysis with color-flow imaging is performed. FINDINGS: Respiratory variation, normal compression, and augmented flow are noted throughout the upper extremity including the bilateral axillary, bilateral brachial, bilateral basilic, right cephalic vein, and bilateral radial and ulnar veins. There is normal flow in the internal jugular and subclavian veins. The left cephalic vein is not seen. There is no visible deep or superficial thrombophlebitis. US/US venous duplex UE BI IMPRESSION: No DVT demonstrated in the bilateral upper extremities.
--- NOTE | ~2023-06-09 | XR_ITS ---
EXAMINATION: Bilateral elbow, bilateral hand and wrist. CLINICAL INDICATIONS: Elbow and wrist pain. No trauma. COMPARISON: None. TECHNIQUE: 4 views each hand/wrist. 3 views each elbow. FINDINGS: Bilateral hand/wrist: The visualized carpal bones are intact with normal alignment. No fracture or dislocation seen. Visualized metacarpals and phalanges are normal. There is mild loss of PIP and DIP joints but no periarticular erosive changes or spurring. The soft tissues are normal. Bilateral elbow: The joint space is maintained normal. No bony erosive changes, loose bodies or fracture seen. The anterior and posterior fat pad sign is normal. XR/XR elbow RT min 3V IMPRESSION: Mild loss of PIP and DIP joints both hands likely early degenerative changes. No acute fracture, dislocation or bony erosive changes. No soft tissue swelling.. Unremarkable bilateral elbow exam.
[2023-06-09 07:40] VITALS: BP 144/88; PULSE 75; RESP 20; TEMP 35.9; O2SAT 99; BMI 50.6
--- NOTE | 2023-06-09 09:11 | ED.EXTPRO ---
HPI - Extremity Problem General Chief complaint: Extremity Injury, Upper Stated complaint: Swollen Arms x 2 Mos Time Seen by Provider: 06/09/23 08:15 Source: patient, family () and crew boss Mode of arrival: ambulatory Limitations: no limitations History of Present Illness HPI Narrative: 48 year old female with pmhx significant for congenital solitary kidney , HTN, and prediabetes presents to the ED today with her for evaluation of atraumatic bilateral wrist pain x3 weeks. Endorses pain in her left wrist extending into her left elbow beginning 3 weeks ago. This pain has now started in her right wrist, extending to her right elbow. Reports associated tingling in bilateral hand/ wrists. Pain in wrists is exacerbated with holding or gabbing objects. She has been taking Tylenol at home without relief. Last does yesterday. Denies injury or trauma. She endorses history of bilateral carpal tunnel syndrome which felt similar to this. She was advised by previous PCP years ago to have surgery for this however declined. Denies bilateral shoulder pain, UE swelling, fever, chills, LE pain/ swelling, chest pain, SOB. nuclear reactor operator was utilized during this visit to communicate with patient. Related Data Home Medications Medication Instructions Recorded Confirmed cholecalciferol (vitamin D3) 25 1 tab PO DAILY 06/08/21 06/08/21 mcg (1,000 unit) tablet (Vitamin D3) lisinopril 20 mg tablet 20 mg PO DAILY 05/27/23 metformin 500 mg tablet,extended 500 mg PO DAILY 05/27/23 release 24 hr Previous Rx's Medication Instructions Recorded omeprazole 40 mg capsule,delayed 40 mg PO DAILY@0630 #60 caps 06/10/21 release acetaminophen 500 mg tablet 1,000 mg (2 x 500 mg) PO QID PRN 09/13/22 (Tylenol Extra Strength) fever or pain #14 tabs benzonatate 200 mg capsule 200 mg PO BID PRN cough #10 caps 10/25/22 gabapentin 100 mg capsule 100 mg PO BID 30 days #60 caps 06/09/23 prednisone 20 mg tablet 20 mg PO DAILY 5 days #5 tabs 06/09/23 Allergies Allergy/AdvReac Type Severity Reaction Status Date / Time No Known Allergies Allergy Verified 06/09/23 07:43 [No Known Allergies*] Review of Systems Review of Systems: Constitutional: No fever, chills, fatigue, night sweats, weight changes ENT/Mouth: No ear pain, hearing loss, nasal congestion, sinus pain, rhinorrhea, sore throat Eyes: No eye pain, swelling, redness, vision changes, discharge Cardio: No chest pain, palpitations, MOYA, orthopnea, peripheral edema Pulm: No SOB, cough, sputum, wheezing, dyspnea, hemoptysis GI: No nausea, vomiting, hematemesis, abdominal pain, diarrhea, constipation, hematochezia, melena : No irregular bleeding, dysuria, frequency, urgency, hesitancy, hematuria, flank pain, urinary flow changes, urinary incontinence or retention MSK: No back pain, No neck pain, joint pain, myalgias, +bilateral wrist/hand and elbow pain Skin: No lesions, rashes Neuro: No weakness, numbness, paresthesias, LOC, dizziness, headache All other systems reviewed and are negative. [facility] Past Medical History Attestation statement: The following information was validated with the patient. Source: old records reviewed and nursing notes reviewed Medical History Pre-diabetes Kidney anomaly, congenital FH: cholecystectomy HTN (hypertension) Surgical History History of cholecystectomy Previous section Family History Family History Mother Diabetes Social History Social History Household Members: Spouse and Children Housing: Apartment Do you presently have visiting nurse or other home services: No Alcohol intake: never Patient Tobacco Use Status: Never used Tobacco Advance Directives: Yes Advance Directives on File: Yes Advance Directives Date on File: 06/11/21 service: No Current occupational status: disabled 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 Const: General: cooperative, healthy appearing, comfortable, no acute distress, alert, awake and Physically active Orientation/consciousness: patient oriented x3 HEENT: Head: Yes normal to inspection, Yes normocephalic and Yes atraumatic Eyes: General: appearance normal, both eyes and all related structures Conjunctivae: conjunctivae normal Sclerae: sclerae normal Pupils: Equal, round and reactive pupils present EOM: EOMs intact bilaterally Neck: Other: + no cervical midline spinous tenderness or step-off deformity. Neck: Yes normal visual inspection Resp: Effort & Inspection: normal respiratory effort Auscultation: clear to auscultation bilaterally Cardio: Rate: regular rate Rhythm: regular rhythm Back/Spine/Pelvis: Other: No midline spinous tenderness. No paraspinal muscle tenderness. No step off deformity. Skin: General skin exam: no rashes or lesions noted Neuro: Other: Sensation intact to light touch.? Neurovascular intact distally.? General: patient oriented x3 and gait normal Cranial nerves: Yes Equal, round and reactive pupils present Gait exam (Neuro): Normal gait present Extrem: Other: + No edema or erythema noted to b/l elbow or wrist joints. Full ROM intact to bilateral elbows without pain. Full ROM intact to bilateral wrists wit pain on extension and flexion. Negative Tinel's. Positive Phalen's bilaterally. Decreased production support analyst strength on left. Medical Office Manager strength intact on right. 2+ radial and ulnar pulses bilaterally. + no calf tenderness bilaterally. General: Yes normal to inspection and Yes capillary refill normal Course Course Course Narrative: 1217-- bilateral hand/wrist and elbow x-rays do not exhibit acute fracture or pathology. There is mild loss of PIP and DIP joints bilaterally consistent with early degenerative changes. No soft tissue swelling. As patient complains of bilateral arm pain and swelling, discussed the need for duplex of upper extremities. Patient is agreeable. Reports some symptom improvement with Tylenol gabapentin. 1511-- venous duplex of bilateral upper extremities does not demonstrate DVT. There is no evidence of bursitis. Patient's symptoms may be consistent with bilateral carpal tunnel syndrome. Discussed results with both patient and her . Provided her with wrist guards to wear at night. Will send gabapentin to pharmacy to help with nerve pain. Advised her to take Tylenol as well. Advised her to follow-up with her primary care provider. Discussed worrisome signs and symptoms of when to return to the ED. all questions answered at this time. Patient is agreeable disposition and stable for discharge. Medications Administered Discontinued Medications Generic Name Dose Route Start Last Admin Trade Name Obinna PRN Reason Stop Dose Admin Acetaminophen 975 mg 06/09/23 09:36 06/09/23 09:48 Acetaminophen 325 Mg Tablet PO 06/09/23 09:37 975 mg ONCE ONE Administration Gabapentin 100 mg 06/09/23 09:36 06/09/23 09:48 Gabapentin 100 Mg Capsule PO 06/09/23 09:37 100 mg ONCE ONE Administration Medical Decision Making Medical Decision Making MDM Narrative: 48 year old female with pmhx significant for congenital solitary kidney , HTN, and prediabetes presents to the ED today with her for evaluation of atraumatic bilateral wrist pain x3 weeks. Patient hypertensive to 144/88, vitals otherwise WNL. Patient is nontoxic-appearing and in no acute distress. No edema or erythema noted to b/l elbow or wrist joints. Full ROM intact to bilateral elbows without pain. Full ROM intact to bilateral wrists wit pain on extension and flexion. Negative Tinel's. Positive Phalen's bilaterally. Decreased production support analyst strength on left. Medical Office Manager strength intact on right. 2+ radial and ulnar pulses bilaterally. C spine wnl. Clinical concern for carpal tunnel, cubital tunnel, bursitis, fracture, osteoarthritis, osteoporosis. Lower suspicion for cervical radiculopathy. Unlikely gout, pseudogout, septic arthritis, septic joint, NV compromise, threat to limb, compartment syndrome. Plan for xrays, pain control, and re-evaluation. Differential Diagnosis Differential Diagnoses: The differential diagnosis associated with the presentation includes as above Admission/Observation Not indicated. Independent Interpretation I performed an independent interpretation of an: Plain X-Ray and Ultrasound Interpretation: I have personally reviewed the patient's x-rays and agree with radiologist's interpretation. I have personally reviewed the patient's venous duplex and agree with radiologist's interpretation. Radiology Impression Discussion of test interpretation with radiology: I have reviewed the radiologist's reading. Radiologist Impression: XR bilateral hand wrist/ elbows IMPRESSION: Mild loss of PIP and DIP joints both hands likely early degenerative changes. No acute fracture, dislocation or bony erosive changes. No soft tissue swelling. Unremarkable bilateral elbow exam. Independent Historian Clinical information obtained from an independent historian. History obtained from or confirmed by: Spouse () External Record Review External record reviewed: Inpatient record Prescription Management I considered prescription management with: Pain Medication (Tylenol) and Other (Gabapentin) Chronic Conditions Patient?s care impacted by: Hypertension Social Determinants Patient?s care significantly limited by Social Determinants of Health including: Other Social Determinant of Health Procedures Orthopedic Splinting/Casting Injury #1: Side: left Upper Extremity Injury Location: wrist and hand Upper Extremity Immobilizer: volar splint Injury #2: Side: right Upper Extremity Injury Location: wrist and hand Upper Extremity Immobilizer: volar splint Discharge Plan Discharge Clinical Impression: Bilateral carpal tunnel syndrome Patient Disposition: Home, Self-Care Instructions: Paresthesia (ED), Steroid Joint Injection (DC), Carpal Tunnel Surgery (DC) Additional Instructions: X-rays of your wrists and elbows are reassuring. There is no fracture. They do show chronic degenerative changes within the joints consistent with arthritis. The ultrasound of your arms does not demonstrate any clot. Your symptoms may be consistent with carpal tunnel. Gabapentin is a nerve medication that has been sent to your pharmacy. Take this twice daily. This may make you tired over the 1st few days. Prednisone is a steroid that has been sent to your pharmacy. Please take this over the next 5 days to help with inflammation. If you have diabetes or your blood sugar tends to run high, please monitor your sugars at home while taking prednisone as steroids can increase her blood sugar. You have also been provided with velcro wrist braces. Make sure to wear these at night to help stabilize your wrists. Please follow-up with your primary care provider. If you do not have a PCP, you have been provided with a referral to one. Call them to make an appointment. They will not call you. You have also been provided a referral to an orthopedic doctor. Call them to make an appointment. They will not call you. If symptoms persist or worsen despite treatment, please return to the ED. In the case of an emergency call 911. Las radiograf?as de mu?ecas y codos son tranquilizadoras. No hay fractura. Muestran cambios degenerativos cr?nicos dentro de las articulaciones compatibles con la artritis. La ecograf?a de nicci brazos no demuestra gwendolyn?n co?gulo. Nicci s?ntomas pueden ser consistentes con el t?lonnie carpiano. La gabapentina es un medicamento para los nervios que se ruiz enviado a lerma farmacia. [place] esto dos veces al d?a. Roy puede hacer que se sienta cansado mimi los primeros d?as. La prednisona es un esteroide que se envi? a lerma farmacia. T?serrano mimi los pr?ximos 5 d?as para ayudar con la inflamaci?n. Si tiene diabetes o lerma nivel de az?car en mary tiende a ser alto, controle nicci niveles de az?car en casa mientras ag prednisona, ya que los esteroides pueden aumentar lerma nivel de az?car en mary. Tambi?n se le augustin proporcionado mu?equeras con velcro. Aseg?rese de usarlos por la noche para ayudar a estabilizar nicci mu?ecas. Bianca un seguimiento con lerma proveedor de atenci?n primaria. Si no tiene un PCP, se le ruiz proporcionado mauro remisi?n a anival. Ll?melos para concertar mauro alverto. No te llamar?n. Tambi?n se le ruiz proporcionado mauro derivaci?n a un m?dico ortop?dico. Ll?melos para concertar mauro alverto. No te llamar?n. Si los s?ntomas persisten o empeoran a pesar del tratamiento, regrese al servicio de urgencias. En miles de emergencia llame al 911. Prescriptions: New gabapentin 100 mg capsule 100 mg PO BID 30 Days Qty: 60 0RF prednisone 20 mg tablet 20 mg PO DAILY 5 Days Qty: 5 0RF No Action cholecalciferol (vitamin D3) [Vitamin D3] 25 mcg (1,000 unit) tablet 1 tab PO DAILY omeprazole 40 mg Capsule,Delayed Release(Dr/Ec) 40 mg PO DAILY@0630 Qty: 60 0RF lisinopril 20 mg tablet 20 mg PO DAILY acetaminophen [Tylenol Extra Strength] 500 mg tablet 1,000 mg PO QID PRN (Reason: fever or pain) Qty: 14 0RF benzonatate 200 mg capsule 200 mg PO BID PRN (Reason: cough) Qty: 10 0RF metformin 500 mg tablet extended release 24 hr 500 mg PO DAILY Referrals: [facility] [place] [facility] [place]Provider Group] [facility] [place] [facility] [Provider Group] [facility] [place] [facility] [Provider Group] [facility] [place] [facility] [place] Group] Stand Alone Forms: Work/School Release Interventions: ED Discharge Assessment Last Done: 06/09/23 15:41 Discharge Date/Time: 06/09/23 15:43 Print Language: Icelandic
[2023-06-09] MEDS: Acetaminophen 325 MG TABLET 975 MG PO (09:48)
[2023-06-09] MEDS: Gabapentin 100 MG CAPSULE PO (09:48)
[2023-06-09 14:46] VITALS: BP 140/85; PULSE 77; RESP 16; TEMP 36.8; O2SAT 100
== END 2023-06-09 15:43 | disposition home or self-care (01) ==
PROVIDERS: Emergency Provider Emergency Medicine
DX: G56.03 Carpal tunnel syndrome, bilateral upper limbs (principal); M25.532 Pain in left wrist; M25.531 Pain in right wrist; I10 Essential (primary) hypertension; R73.03 Prediabetes; Q63.9 Congenital malformation of kidney, unspecified; M25.522 Pain in left elbow; M25.521 Pain in right elbow; M79.89 Other specified soft tissue disorders; M79.622 Pain in left upper arm; M79.621 Pain in right upper arm
CPT/HCPCS: 73080; 73110; 73130; 93970; 99284

== ENCOUNTER 2023-07-15 12:59 | Outpatient (AMB) | payer MEDICAID, SELFPAY ==
[2023-07-15 13:58] VITALS: BMI 50.6
--- NOTE | 2023-07-15 13:58 | A.OFFVIS_ITS ---
Intake Vital Signs 07/15/23 13:58 Height 5 ft 5 in Weight 304 lb BMI 50.6 Intake Visit Reasons: New Pt - Bilateral Hand Pain/ Swelling Intake Note: Erin dominguez 48 year old Right hand dominant female presents today for an evaluation of bilateral hand pain and swelling the radiates up her arm. Patient reports her pain and swelling has been going on for about two years and is a 8 on the 1-10 pain scale. Her Right side is worse. She gets a burning sensation when she picks things up. She denies any injuries, injections, and surgery. Allergies No Known Allergies [No Known Allergies*] Allergy (Verified 07/15/23 14:02) HPI New Pt - Bilateral Hand Pain/ Swelling HPI Details 48-year-old right hand dominant female amie dick presents to the office today with an certified court interpreter for evaluation of bilateral hand pain for about 2 years. She states she has pain and swelling in her bilateral hands which is worse on her right hand. Her pain radiates up to her arms and she rates the pain as 8 on the scale of 0-10. She finds difficulty to sleep at night due to the pain. She also c/o a burning sensation with picking up items. She denies any numbness or tingling. She denies any injury and has not had any injection or surgery in the past. She has a history of prediabetes. 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 Review of Systems Const All systems reviewed & are unremarkable except as noted in HPI and below Physical Exam Vital Signs: BMI result Body Mass Index 50.6 Const General: cooperative, healthy appearing, comfortable, no acute distress, well developed and alert Orientation/consciousness: patient oriented x3 HEENT Head: Yes normal to inspection, Yes normocephalic and Yes atraumatic Eyes General: appearance normal, both eyes and all related structures Resp Effort & Inspection: normal respiratory effort and able to speak in complete sentences Cardio Rate: regular rate Peripheral pulses: Peripheral pulses 2+ throughout GI Palpation (GI): Soft to palpation Skin Lesions: no lesions Rashes: no rashes Neuro General: patient oriented x3 Extrem Other: Bilateral elbow: Skin intact. No erythema or swelling. ROM full without pain. Tenderness over the lateral epicondyle and pain with resisted wrist extension. NVI. Office Procedures Joint Injection/Drain Joint Injection/Drain Primary Site: right tennis elbow Prep: site was prepped using aseptic technique, ethochloride spray was applied and injection warnings given Injected: 40 mg of, with 1 mL of, 1% plain lidocaine and decadron Procedure: The patient tolerated the procedure well and there was some relief with the local anesthesia Coding 29635 - Epicondyle Procedure code (CPT) selection complete Assessment & Plan Assessment & Plan (1) Lateral epicondylitis of both elbows: Code(s): M77.11 - Lateral epicondylitis, right elbow; M77.12 - Lateral epicondylitis, left elbow Plan We discussed options today which include steroid injection. They did consent to move forward with the right elbow injection, which was tolerated well. I recommended rest, ice and elevation and OTC anti-inflammatories PRN for discomfort. She was also referred to occupational therapy in the office today. If symptoms persist or worsens over the next 6-8 weeks, patient will contact the office, otherwise follow-up as needed. Orders: Orders OT Evaluation and Treatment 07/15/23 M77.11 - Lateral epicondylitis, right elbow, M77.12 - Lateral epicondylitis, left elbow Patient Instructions: Scribed for Tin Rivera PA-C, by Noah Will medical appointment scheduler, on 07/15/2023 at 2:00 PM EST. Tin Arroyo PA-C, have personally reviewed and agree with the information entered by the scribe. Coding Level of Care Code New Pt Level 3 (47848) Diagnoses Lateral epicondylitis of both elbows M77.11; M77.12 CPT Codes Coding - Joint 2: 02631 - Epicondyle ([id number])
== END 2023-07-15 14:56 | disposition home or self-care (01) ==
PROVIDERS: Visit Provider Physician Assistant
DX: M77.11 Lateral epicondylitis, right elbow (principal); M77.12 Lateral epicondylitis, left elbow
CPT/HCPCS: 20550; 99213

== ENCOUNTER → 2023-07-15 12:59 | Outpatient (BNVA) | payer MEDICAID, SELFPAY | PROVIDERS: Visit Provider Physician Assistant | DX: M79.642 Pain in left hand (principal); M79.641 Pain in right hand; M77.11 Lateral epicondylitis, right elbow; M77.12 Lateral epicondylitis, left elbow; M79.89 Other specified soft tissue disorders | CPT/HCPCS: 20551; 99212; J1100 ==

== ENCOUNTER 2023-12-11 09:19 | Outpatient (REF) | payer MEDICAID, SELFPAY ==
[2023-12-11 10:29] LABS: Anion Gap 12 (12-20); Blood Urea Nitrogen 10 mg/dL (9-16); Carbon Dioxide 25 mmol/L (22-29); Chloride 106 mmol/L (96-108); Estimated Glomerular Filt Rate > 60; Potassium 4.3 mmol/L (3.3-5.1); Sodium 139 mmol/L (135-145)
[2023-12-11 11:01] LABS: Estimated Average Glucose 126 mg/dL
[2023-12-11 11:13] LABS: Creatinine Urine 115.64 mg/dL; Protein/Creatinine Ratio, Ur 0.23 (<0.2); Total Protein Urine Random 27 mg/dL (<12)
== END 2023-12-11 09:20 | disposition home or self-care (01) ==
LOC: HO.10HDL 09:19
PROVIDERS: Visit Provider Internal Medicine Nephrology
DX: Q60.0 Renal agenesis, unilateral (principal); I10 Essential (primary) hypertension; R80.9 Proteinuria, unspecified
CPT/HCPCS: 36415; 80051; 82565; 82570; 83036; 84156; 84520

== ENCOUNTER 2023-12-14 10:50 | Outpatient (AMB) | payer MEDICAID, SELFPAY ==
[2023-12-14 10:55] VITALS: BP 126/82; PULSE 87; O2SAT 97; BMI 51.1
--- NOTE | 2023-12-14 10:55 | HO.NEPHOV_ITS ---
Vital Signs 12/14/23 10:55 Height 5 ft 5 in Weight 307 lb BMI 51.1 BP 126/82 Blood Pressure Location Rt radial Position Sitting Pulse 87 Pulse Source Pulse Oximeter Pulse Oximetry (%) 97 Oxygen Delivery Method Room Air Intake Visit Reasons: Proteinuria/ 6 MO FU / Conf Intake Note: Patient declined central sterilization technician service form signed and scanned into chart. Returned Telephone Equipment Appraiser Required: No Accompanied by: Spouse Allergies No Known Allergies [No Known Allergies*] Allergy (Verified 12/14/23 10:58) HPI Comments Details: I had the privilege of seeing Simi accompanied by her in the office today. She follows up with me for proteinuria, congenital solitary kidney and hypertension. She is compliant with medications. She has not lost a lot of weight. Her blood pressure has been at goal. She is tolerating lisinopr il well without any side effects. She does not have any significant proteinuria by recent lab work. Her renal functions are stable. She recently had a imaging of the abdomen which showed unremarkable solitary kidney. All other systems have been reviewed and were negative. 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 Review of Systems Const All systems reviewed & are unremarkable except as noted in HPI and below Physical Exam Vital Signs: Last Vital Signs Pulse 87 12/14/23 10:55 BP 126/82 12/14/23 10:55 Pulse Ox 97 12/14/23 10:55 Oxygen Delivery Method Room Air 12/14/23 10:55 BMI result Body Mass Index 51.1 Const General: comfortable and no acute distress Orientation/consciousness: patient oriented x3 HEENT Head: Yes normocephalic Mouth: Normal oral and palatal mucosa present Eyes EOM: EOMs intact bilaterally Neck Neck: Yes supple Resp Auscultation: clear to auscultation bilaterally Cardio Jugular venous distension: no JVD Rate: regular rate GI Palpation (GI): Soft to palpation Auscultation: normal bowel sounds General: Yes no CVA tenderness Back/Spine/Pelvis Back: no CVA tenderness Skin General skin exam: no rashes or lesions noted Neuro General: patient oriented x3 and moves all extremities Extrem General: Yes no pedal edema Results Reviewed Nephrology Results: Hgb 12.8 g/dl (12.0-16.0) 05/05/23 WBC 9.9 X10*3/uL (4.8-10.8) 05/05/23 Plt Count 305 X10*3/uL (160-400) 05/05/23 Sodium 139 mmol/L (135-145) 12/11/23 Potassium 4.3 mmol/L (3.3-5.1) 12/11/23 Chloride 106 mmol/L (96-108) 12/11/23 Carbon Dioxide 25 mmol/L (22-29) 12/11/23 BUN 10 mg/dL (9-16) 12/11/23 Creatinine 0.79 mg/dL (0.5-1.4) 12/11/23 Calcium 9.7 mg/dL (8.4-10.2) 05/05/23 Urine Protein Negative mg/dL (Neg-Trace) 05/05/23 Urine Creatinine 115.64 mg/dL 12/11/23 Protein/Creatinin Ratio 0.23 (<0.2) H 12/11/23 Assessment & Plan Assessment & Plan (1) Solitary kidney, congenital: Code(s): Q60.0 - Renal agenesis, unilateral Category: Medical (2) HTN (hypertension): Code(s): I10 - Essential (primary) hypertension Category: Medical Qualifiers: Hypertension type: primary hypertension Qualified Code(s): I10 - Essential (primary) hypertension Plan 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 Her eldest son(Has 2 boys) also has congenital absence of right kidney. She had proteinuria in the past which is well controlled on current dose of lisinopril. Her last urine study did not detect any significant protein. Her blood pressure is at goal. Her electrolytes are acceptable with a stable renal function. She needs to lose weight and continue to have lifestyle modification. I did not make any changes today. All her and her 's questions were answered. Follow-up blood work and urine studies ordered. Follow-up appointment given. Orders: Orders Creatinine Today I10 - Essential (primary) hypertension, Q60.0 - Renal agenesis, unilateral Protein Creatinine Ratio, Ur Today I10 - Essential (primary) hypertension, Q60.0 - Renal agenesis, unilateral Blood Urea Nitrogen Today I10 - Essential (primary) hypertension, Q60.0 - Renal agenesis, unilateral Electrolytes Today I10 - Essential (primary) hypertension, Q60.0 - Renal agenesis, unilateral Medications: Refilled lisinopril 20 mg PO DAILY 90 tabs 3RF Coding Level of Care Code Est Pt Level 4 (11842) Diagnoses Solitary kidney, congenital Q60.0 Primary hypertension I10 Hypertension type: primary hypertension
== END 2023-12-14 11:17 | disposition home or self-care (01) ==
PROVIDERS: PCP Nurse Practitioner Primary Care; Referring Provider Nurse Practitioner Primary Care; Visit Provider Internal Medicine Nephrology
DX: Q60.0 Renal agenesis, unilateral (principal); I10 Essential (primary) hypertension
CPT/HCPCS: 99214

== ENCOUNTER → 2023-12-14 10:50 | Outpatient (BNVA) | payer MEDICAID, SELFPAY | PROVIDERS: PCP Nurse Practitioner Primary Care; Visit Provider Internal Medicine Nephrology | DX: I10 Essential (primary) hypertension (principal); R80.9 Proteinuria, unspecified; Q60.0 Renal agenesis, unilateral | CPT/HCPCS: 99212 ==

== ENCOUNTER 2024-05-02 09:00 | Outpatient (REF) | payer MEDICAID, SELFPAY | END 2024-05-02 09:01 | disposition home or self-care (01) | LOC: HO.MAMMO 09:00 | PROVIDERS: PCP Nurse Practitioner Primary Care; Visit Provider Nurse Practitioner Primary Care | DX: Z12.31 Encounter for screening mammogram for malignant neoplasm of breast (principal) | CPT/HCPCS: 77063; 77067 ==

== ENCOUNTER → 2024-05-02 09:30 | Outpatient (BNV) | payer MEDICAID, SELFPAY | PROVIDERS: PCP Nurse Practitioner Primary Care; Visit Provider Internal Medicine | DX: Z12.31 Encounter for screening mammogram for malignant neoplasm of breast (principal) | CPT/HCPCS: 77063; 77067 ==

== ENCOUNTER 2024-07-08 07:54 | Emergency (ER) | payer MEDICAID, SELFPAY ==
[2024-07-08 08:13] VITALS: BP 186/78; PULSE 110; RESP 18; TEMP 37.2; O2SAT 98; BMI 50.2
[2024-07-08 09:01] LABS: IDNOW Serial# 58CA691E; Strep A Nucleic Acid Positive (Negative)
[2024-07-08 09:16] LABS: Influenza A PCR NEGATIVE (Negative); Influenza B PCR NEGATIVE (Negative); Resp Syncy Virus RNA Qual PCR NEGATIVE (Negative); SARS COV2 PCR INHOUSE NEGATIVE (Negative)
--- OUTSIDE RECORDS SUMMARY | 2024-07-08 12:59 | XMS_ITS | Clinical Summary ---
Author Organization [employer] Address [address] [facility] 7[address] [place] [address] Care Team Providers Care Car Body Mechanic Name Role Phone Mendoza Wilian BHANDARI Primary Care Provider [phone] Allergies No known active allergies Medications lisinopril 20 MG tablet Take 1 tablet by mouth 1 (one) time each day. 2 Active Blood Pressure kitIndications:Pr imary hypertension 1 kit in the morning. 1 kit 2 Active estradiol (Estrace) 0.1 MG/GM vaginal creamIndications: Dyspareunia in female insert (1G) by vaginal route nightly x 2 weeks then 1 g vaginally twice a week thereafter 42.5 g 1 4 Active Diclofenac Sodium (Voltaren) 1 % gelIndications:Bi lateral carpal tunnel syndrome Apply 2g up to 4x/d to affected joint(s) for pain/swelling 100 g 1 4 Active omeprazole (PriLOSEC) [address] capsuleIndication s:Heartburn TAKE 1 CAPSULE BY MOUTH EVERY DAY BEFORE A MEAL 90 capsule 1 4 Active metFORMIN XR (Glucophage-XR) 500 MG 24 hr tabletIndications :Type 2 diabetes mellitus with microalbuminuria, without long-term current use of insulin (CMS/HCC) TAKE 1 TABLET BY MOUTH TWICE A DAY WITH FOOD 180 tablet 1 4 Active Active Problems Problem Noted Date Diagnosed Date Impaired fasting glucose 03/31/2022 Proteinuria 12/06/2020 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 Carpal tunnel syndrome 08/03/2018 Gastritis 08/03/2018 Morbid obesity 08/03/2018 Essential hypertension 06/21/2015 Encounters Date Type Department Care Team Description 06/02/2024 Telephone [facility] [address] [place] [address] Wilian Christian ANP 05/02/2024 Orders Only [facility] [address] [place] [address] Wilian Christian ANP 04/22/2024 Refill [facility] [place] [address] Wilian Christian ANP Type 2 diabetes mellitus with microalbuminuria, without long-term current use of insulin ([facility]) from Last 3 Months Immunizations Name Administration Dates Next Due Influenza injectable quadriv alent preservative free 07/09/2023,01/30/2022,02/14/2021,2015 Pfizer Covid-19 Vaccine 12+ 06/07/2021,,08/08/2020 Pfizer Covid-19 Vaccine 12+ zara-sucrose (Dodson Cap) 06/07/2021 Tdap 02/14/2021 Family History Medical History Relation Name Comments Colon cancer Other Relation Name Status Comments Other Aunt Social History Tobacco Use Types Packs/Day Years Used Date Smoking Tobacco: Never Passive Smoke Exposure: Never Smokeless Tobacco: Never Tobacco Cessation:Counseling Given: No Alcohol Use Standard Drinks/Week Comments Never 0 (1 standard drink = 0.6 oz pur e alcohol) Alcohol Answer Date Recorded Frequency of Alcohol Consumption Not on file 07/09/2023 Average Number of Drinks Not on file 024 Frequency of Binge Drinking Not on file 11/2023 Score 0 07/09/2023 Housing Stability Answer Date Recorded What is your housing situation today? I have tung ratliff 10/07/[address] you li ve. Do you have problems with any of the following? None of the above 10/07/2023 Food Insecurity Answer Date Recorded Within the past 12 months, y ou worried that your food would run out before you got money to buy more: Never True 10/07/2023 Within the past 12 months,th e food you bought just didn't last and you didn't have enough money to get more: Never True 09/2023 Transportation Answer Date Recorded In the past 12 months, has l ack of transportation kept you from medical appts, meetings, work or from getting things needed for daily living? Yes, it has kept me from medical appointments or getting medications. 10/07/2023 Utilities Answer Date Recorded In the past 12 months, has t he electric, gas, oil or water company threatened to shut off services in your home? No 10/07/2023 Depression Answer Date Recorded Patient Health Questionnaire-2 Score 0 04/25/2022 Comments No Sex and Gender Information Value Date Recorded Sex Assigned at Female 03/03/2022 10:29 AM EDT Legal Sex Female 10:29 AM EDT Gender Identity Female 03/03/2022 10:29 AM EDT Sexual Orientation Choose not to disclose 2021 10:29 AM EDT Last Filed Vital Signs Vital Sign Reading Time Taken Comments Blood Pressure 139/78 07/09/2023 1:41 PM EST Pulse 88 07/09/2023 1:41 PM EST Temperature - - Respiratory Rate 20 07/09/2023 1:41 PM EST Oxygen Saturation - - Inhaled Oxygen Concentration - - Weight 140 kg (309 lb) 07/09/2023 1:41 PM EST Height 160 cm (5' 3 ) 07/09/2023 1:41 PM EST Body Mass Index 54.74 07/09/2023 1:41 PM EST Plan of Treatment Health Maintenance Due Date Last Done Comments CT Colonography 1974 Colonoscopy 1974 Colorectal Cancer Screening 1974 FIT DNA/Cologuard 1974 FIT 1974 FOBT 1975 HIV Screening 1975 Sigmoidoscopy 1974 Diabetes: Foot Exam 01/27/1984 Eye Exam 01/27/1984 Family Planning (PISQ) 1989 Hepatitis C Screening 01/27/1992 Hepatitis B Vaccines (1 of 3 - 19+ 3-dose series) 1993 Pneumococcal Vaccine: 50+ Years (1 of 2 - PCV) 1993 Diabetes: Urine Protein Screening 02/15/2022 02/15/2021 Lipid Panel 02/15/2022 02/15/2021 Diabetes: Hemoglobin A1C 10/24/2022 022, 01/13/2022, 02/15/2021 Depression Screening 04/25/2023 04/25/2022, 04/25/20 22 COVID-19 Vaccine ( season) 2024 06/07/2021, 06/07/2021, 08/29/2020, Additional history exists Influenza Vaccine (#1) 2024 , 01/30/2022, 02/14/2021, Additional history exists Zoster Vaccines (1 of 2) 01/27/2024 Alcohol/Substance Use Screening 07/08/2024 07/09/2023 Tobacco Screening 07/08/2024 07/09/2023 SDOH Screening 10/06/2024 10/07/2023 Pap Smear 01/30/2025 01/30/2022, 01/30/2022 Mammogram 05/02/2026 05/02/2024, 04/05, 04/16/2021, Additional history exists Cervical Cancer Screening 01/30/2027 HPV/Cotest 01/30/2027 01/30/2022 DTaP/Tdap/Td Vaccines (2 - Td or Tdap) 02/14/2031 02/14/2021 RSV Patients and Patients Aged 60 years or older (1 - 1-dose 75+ series) 2049 HIB Vaccines Aged Out No longer eligi ble based on patient's age to complete this topic HPV Vaccines Aged Out No longer eligi ble based on patient's age to complete this topic Hepatitis A Vaccines Aged Out No long er eligible based on patient's age to complete this topic IPV Vaccines Aged Out No longer eligi ble based on patient's age to complete this topic Meningococcal Vaccine Aged Out No cara malia eligible based on patient's age to complete this topic RSV under 20 months Aged Out No longe r eligible based on patient's age to complete this topic Rotavirus Vaccines Aged Out No longer eligible based on patient's age to complete this topic Procedures Procedure Name Priority Date/Time Associated Diagnosis Comments STREP A NUCLEIC ACID Routine 07/08/2024 8:31 AM EST SARS COV2/INFLUENZA A/B AND RSV RNA QL NAAT Routine 07/08/2024 8:28 AM EST BI MAMMOGRAM SCREENING TOMOSYNTHESIS BILATERAL Routine 05/02/2024 9:10 AM EST POCT GLYCOSYLATED HEMOGLOBIN (HGB A1C) Routine 04/25/2022 11:12 AM EST Type 2 diabetes mellitus with microalbuminuria, without long-term current use of insulin ([facility]) THINPREP IMAGING PAP AND HPV MRNA E6/E7 WITH REFLEX TO HPV 16,18/45 Routine 01/30/2022 11:35 AM EDT HM PAP/HPV Routine 01/30/2022 ALBUMIN, RANDOM URINE W/CREATININE Routine 02/15/2021 9:10 AM EDT LIPID PANEL, STANDARD Routine 02/15/2021 9:10 AM EDT from Last 3 Months or Most Recently Relevant to Health Maintenance Results * (ABNORMAL) Strep A Nucleic Acid (07/08/2024 8:31 AM EST) IDNOW SERIAL# [id number] [facility] Strep A Nucleic Acid Positive(A ) Negative [facility] Comment:All test results mus t be correlated with clinical findings.This test has not been evaluated for monitoring treatment ofinfection.Additional follow-up testing using the culture method isrequired if the result is negative and clinical symptomspersist, or in the event of an acute rheumatic feveroutbreak. 07/08/2024 8:31 AM EST 07/08/2024 8:34 AM EST us Generic External Data Provider LAB MICROBIOLOGY - GENERAL ORDERABLES Final Result [facility] [address] [place] [phone] * SARS-CoV-2 RNA, Influenza A/B, and RSV RNA, Ql NAAT (07/08/2024 8:28 AM EST) Influenza A PCR NEGATIVE Negative [facility] Influenza B PCR NEGATIVE Negative [facility] Resp Syncy Virus RNA Qual PCR NEGATIVE Negative [facility] SARS COV2 PCR NEGATIVE Negative [facility] Comment:All test results mus t be correlated with clinical findings.Negative results do not preclude SARS-CoV2, influenza Avirus, influenza B virus and/or RSV infectionand should not be used as the sole basis for treatment orother patient management decisions. Negative results must becombined with clinical observations, patient history, andepidemiological information.This test has not been evaluated for monitoring treatment ofinfection.This test has been authorized by the FDA under an EmergencyUse Authorization (EUA) for use by authorized laboratories.Testing performed on the [employer] GeneXpert utilizingreal-time RT-PCR.All SARS CoV2 and positive influenza A/B results arereported to [facility]. 07/08/2024 8:28 AM EST 07/08/2024 8:34 AM EST Generic External Data Provider LAB MICROBIOLOGY - GENERAL ORDERABLES Final Result [facility] [address] [place] [address] [phone] * BI Mammogram Screening Tomosynthesis Bilateral (05/02/2024 9:10 AM EST) Anatomical Region Laterality Modality Breast Bilateral Mammography 05/02/2024 9:10 AM EST Narrative 05/14/2024 10:55 AM EST ? [facility] ? [address] ?[place] [address] ? Mammography Report ? Signed with Addenda ? Patient: Razo,Simi ?MR#: [id number] ?? [id number] ? : 1975 ?Acct:[id number] ? Age/Sex: 49 / F ?ADM Date: 12/30/24 ? Loc: HO.MAMMO ? Attending : Wilian Christian FILM PROCESSING UTILITY WORKER ? Ordering Physician: WILIAN CHRISTIAN FILM PROCESSING UTILITY WORKER ?Results: 2Benign Fin ?? dings ? Date of Service: 05/02/24 ?Follow Up: 1 Year From Orig ?? inal Mammogram ? Procedure(s): MM tomosynthesis screening BI ?? Accession Number(s): [id number] ? cc: WILIAN CHRISTIAN NP ?ADDENDUM ? ADDENDUM #1 ? ADDENDUM: ? The current mammogram has been reviewed and remains BI-RADS as ?? follows ? OVERALL ASSESSMENT: ?? BI-RADS 2 - Benign Findings ? RECOMMENDATION: ?? 1 year F/U ? Electronically signed by: ??Nikki Chow DO ??05/30/2024 03:11 PM EST ?? RP ? Addendum Dictated By: ?Nikki Chow, DO ? Addendum Signed By: ? <Electronically signed by Nikki Chow, DO in OV> ? 05/30/24 1511 ?? Addendum Cosigned By: ? DD/ ? TD/TT: 05/02/24 ? EXAMINATION: ?? MM SCREENING DIGITAL BREAST TOMOSYNTHESIS, BILATERAL ? CLINICAL INFORMATION: ? Screening. Asymptomatic. ? COMPARISON: ?? Mammography: Comparison is made with available priors ? TECHNIQUE: ?? Digital breast mammography with tomosynthesis is performed in both the ?? craniocaudal and mediolateral oblique views along with computer-aided ?? detection (CAD). ? FINDINGS: ?? There are scattered areas of fibroglandular density (ACR BI-RADS breast ?? composition Category b). ?? Bilateral circumscribed oval masses are stable. ?? There are no significant masses, abnormal calcifications, or other ?? abnormalities. ? MM/MM tomosynthesis screening BI ?? IMPRESSION: ?? No mammographic evidence of malignancy. ? ASSESSMENT: ? BI-RADS BI-RADS 2 - Benign Findings ? RECOMMENDATION: ?? Routine annual mammography screening. ? 1 year F/U ? This examination should not preclude the clinical evaluation of a ?? suspicious palpable abnormality. ? This patient's information was entered into a reminder system with a ?? target due date for their next mammogram. ? Electronically signed by: ??Nikki Chow DO ??05/14/2024 10:52 AM EST ? Dictated By: ?Nikki Chow DO ? Signed By: ?<Electronically signed by Nikki Chow, DO in OV> ? 05/14/24 1052 ? DD/ 9 ? TD/TT: 05/02/24927 ? Auto Inspector: ? Procedure Note Donbarbarater, Image - 05/30/2024 [place] [facility] [address] [place] [address] Mammography Report Signed with Modesta Patient: Simi RazoMR#: [id number] : 1975Acct:[id number] Age/Sex: 49 / FADM Date: 05/02/24 Loc: HO.MAMMO Attending Dr: Wilian Christian NP Ordering Physician: WILIAN CHRISTIANults: Rai smith Date of Service: 05/02/24Follow Up: 1 Year From Orig inal Mammogram Procedure(s): MM tomosynthesis screening BI Accession Number(s): [id number] cc: WILIAN CHRISTIAN NP ADDENDUM ADDENDUM #1 ADDENDUM: The current mammogram has been reviewed and remains BI-RADS as follows OVERALL ASSESSMENT: BI-RADS 2 - Benign Findings RECOMMENDATION: 1 year F/U Electronically signed by: Nikki Chow DO 05/30/2024 03:11 PM EST Addendum Dictated By: Nikki Chow DO Addendum Signed By: <Electronically signed by DO Severino in OV> 05/30/24 1511 Addendum Cosigned By: DD/ TD/TT: 05/02/24 EXAMINATION: MM SCREENING DIGITAL BREAST TOMOSYNTHESIS, BILATERAL CLINICAL INFORMATION: Screening. Asymptomatic. COMPARISON: Mammography: Comparison is made with available priors TECHNIQUE: Digital breast mammography with tomosynthesis is performed in both the craniocaudal and mediolateral oblique views along with computer-aided detection (CAD). FINDINGS: There are scattered areas of fibroglandular density (ACR BI-RADS breast composition Category b). Bilateral circumscribed oval masses are stable. There are no significant masses, abnormal calcifications, or other abnormalities. MM/MM tomosynthesis screening BI IMPRESSION: No mammographic evidence of malignancy. ASSESSMENT: BI-RADS BI-RADS 2 - Benign Findings RECOMMENDATION: Routine annual mammography screening. 1 year F/U This examination should not preclude the clinical evaluation of a suspicious palpable abnormality. This patient's information was entered into a reminder system with a target due date for their next mammogram. Electronically signed by: Nikki Chow DO 05/14/2024 10:52 AM EST Dictated By: Nikki Chow DO Signed By: <Electronically signed by Nikki Chow DO in OV> 05/14/24 1052 DD/ 9 TD/TT: 05/02/24927 Auto Inspector: us Wilian BHANDARI IMG BI PROCEDURES Edited Result - Final * (ABNORMAL) POCT glycosylated hemoglobin (Hb A1C) docked device (04/25/2022 11:12 AM EST) Hemoglobin A1C 6.3(A) 4.0 - 6.0 % QC Media Lot # [id number] Lot# Expiration Date [id number] Blood Venous blood specimen / Unknown 04/25/2022 11:12 AM EST us Wilian BHANDARI POINT OF CARE TEST ENTER/EDIT OR DERABLES Final Result * THINPREP TIS PAP AND HPV mRNA E6/E7 WITH REFLEX TO HPV 16,18/45 (01/30/2022 11:35 AM EDT) Clinical Information: None given [facility] COMMENT SEE COMMENT [facility] Comment: EXPLANATORY NOTE: ? The Pap is a screening test for cervical cancer. It is ?? not a diagnostic test and is subject to false negative ?? and false positive results. It is most reliable when a ?? satisfactory sample, regularly obtained, is submitted ?? with relevant clinical findings and history, and when ?? the Pap result is evaluated along with historic and ?? current clinical information. ?? COMMENT: This Pap test has been evaluated with computer assisted technology. [facility] Geotechnical Engineer : SEE COMMENT [facility] Comment: KF, CT(ASCP) CT screening location: [address] ??[address] HPV nRNA E6/E7 Not Detected Not Detected [facility] Comment: Methodology: Slusher Operator-Mediated Amplification This assay detects E6/E7 viral messenger RNA (mRNA) from 14 high-risk HPV types (16,18,31,33,35,39,45,51,52,56,58,59,66,68). ? Cervical sources are required for HPV testing. If a vaginal source from a patient who has had a total hysterectomy with removal of cervix was ?? submitted, please contact the testing laboratory for alternative testing options. ?? For additional information, please refer to http://education.[employer]/faq/IGE352z3 (This link if provided for information/ educational purposes only.) Interpretation/R esult: Negative for intraepithelial lesion or malignancy. [facility] LMP: [id number] [facility] Prev. BX: NONE GIVEN [facility] Prev. PAP: NONE GIVEN [facility] SOURCE: None given [facility] Statement Of Adequacy: SEE COMMENT [facility] Comment: Satisfactory for evaluation. Endocervical/transformation zone component absent. 01/30/2022 11:3 5 AM EDT Zuleika Altamirano CNM LAB PATHOLOGY ORDERABLES Final Result [facility] * Pap Smear (01/30/2022) Pap smear Performed us Historical Provider HEALTH MAINTENANCE Final Result * (ABNORMAL) ALBUMIN, RANDOM URINE W/CREATININE (02/15/2021 9:10 AM EDT) Microalbumin Urine 5.6 See Note: mg/dL [facility] Comment: Reference Range: ?? Reference Range Not established Microalb/Creat Ratio 32(H) <30 mcg/mg creat [facility] Comment: ?? The ADA defines abnormalities in albumin excretion as follows: ?? Albuminuria Category ?Result (mcg/mg creatinine) ?? Normal to Mildly increased ?? <30 Moderately increased ? 30-299 ?? Severely increased ? > OR = 300 ?? The ADA recommends that at least two of three specimens collected within a 3-6 month period be abnormal before considering a patient to be within a diagnostic category. Creatinine, Urine 177 20 - 275 mg/dL [facility] 02/15/2021 9:10 AM EDT Neal Desir MD LAB URINE ORDERABLES Final R esult [facility] [address] * LIPID PANEL, STANDARD (02/15/2021 9:10 AM EDT) Chol/HDLC Ratio 3.3 <5.0 (calc) [facility] Cholesterol, Total 172 <200 mg/dL [facility] HDL Cholesterol 52 > OR = 50 mg/dL [facility] LDL Cholesterol 97 mg/dL (calc) [facility] Comment: Reference range: <100 ?? Desirable range <100 mg/dL for primary prevention; ?? <70 mg/dL for patients with CHD or diabetic patients ?? with > or = 2 CHD risk factors. ?? LDL-C is now calculated using the Nataliia ?? calculation, which is a validated novel method providing ?? better accuracy than the Friedewald equation in the ?? estimation of LDL-C. ?? Jc COLLINS et al. MARY. 2013;310(19): 4732-5460 ?? (http://education.Quest[employer].com/faq/KKA981) Non-HDL Cholesterol 120 <130 mg/dL (calc) [facility] Comment: For patients with diabetes plus 1 major ASCVD risk ?? factor, treating to a non-HDL-C goal of <100 mg/dL ?? (LDL-C of <70 mg/dL) is considered a therapeutic ?? option. Triglycerides 132 <150 mg/dL [facility] 02/15/2021 9:10 AM EDT us Neal eDsir MD LAB BLOOD ORDERABLES Final R esult [facility] [address] from Last 3 Months or Most Recently Relevant to Health Maintenance Insurance Care Teams Car Body Mechanic Relationship Specialty Start Date End Date Wilian Christian ANP [address] [place] [address] [place] [address] PCP - General Family Medicine 04/02/22
--- OUTSIDE RECORDS SUMMARY | 2024-07-08 12:59 | XMS_ITS ---
Author Organization [facility] Address [address] [place] [address] Care Team Providers Care Zipper Cutter Name Role Phone ThangNeal Primary Care Provider Ramon Oreilly Jr REASON FOR VISIT Pt no showed Encounters Encounter Location Date Provider Diagnosis [facility] [address] [place] [address] 10/29/2023 Ramon Cardenas Jr Plan Of Treatment No Information Progress Notes * RAOUL MERIDADOB:[birth year] (48 yo F)Acc No.[id number]:10/29/2023 Patient:?RAOUL MERIDA :1975???Age:48 Y???Sex:Female Address:[address], [place], [address] * true * Date:? Generated for Tammie yeung/Shar/eTransmitting on:?07/08/2024 12:58 PM EST
--- OUTSIDE RECORDS SUMMARY | 2024-07-08 12:59 | XMS_ITS | Patient Health Record ---
Author Organization [facility] Address [address] [place] [address] Care Team Providers Care Mailroom Courier Name Role Phone Neal Desir Primary Care Provider Unavaila Ramon Hunt Jr Unavailable [phone] Reason For Referral Referring Provider First Name WILIAN Referring Provider Last Name GINO N.P. Referred Organization [facility] Referred Provider Ramon Cardenas Jr Referred Address [address] [place] [address], [address],[place], [place],[address], Referred Provider Specialty Gastroentero logy Referral Priority Routine Encounters Encounter Location Date Provider Diagnosis [facility] [address] [place] [address] 10/29/2023 Ramon Cardenas Jr Plan Of Treatment No Information Insurance Providers Payer Name Payer Address Payer Phone Subscriber Number Group Number Insured Name Patient Relationship to Insured Coverage Start Date Coverage End Date [place] [address] [place] [id number] [phone] [id number] RAOUL MERIDA Self - patient is the insured
--- OUTSIDE RECORDS SUMMARY | 2024-07-08 12:59 | XMS_ITS ---
Author Organization [facility] Address [address] [place], [place] [address] [place] [address] Care Team Providers Care Bleach Maker Name Role Phone Neal Desir Primary Care Provider Ramon Oreilly Jr REASON FOR VISIT Patient presents today for a colon screening Encounters Encounter Location Date Provider Diagnosis [facility] [address] [facility] [address] 10/29/2023 Ramon Cardenas Jr Plan Of Treatment No Information Progress Notes * MAGNOLIA RAOULDOB:[birth year] (49 yo F)Acc No.[id number]:10/29/2023 Progress Notes Patient:?RAOUL MERIDA Provider:?Ramon Cardenas MD :1975???Age:48 Y???Sex:Female D ate:10/29/2023 Address: [place] [facility] Pcp:Neal Desir Subjective: * Chief Complaints: * ???1. Patient presents today for a colon screening. * Medical History:? Objective: * Vitals:? Assessment: Plan: * Treatment: * * The named appointment provid er may or may not be the originator of this progress note, and it is not deemed complete until electronically signed by the appointment provider. Sign off status: Pending * Provider:?Ramon Cardenas MD Date:?0 10/29/2023 Generated for Dianai gamal/Shar/eTransmitting on:?07/08/2024 12:59 PM EST
--- OUTSIDE RECORDS SUMMARY | 2024-07-08 12:59 | XMS_ITS | Clinical Summary ---
Author Organization [facility] Address [address] [facility] [place] [address] Phone Care Team Providers Care [employer] Truck Driver Name Role Phone Thang, Neal Primary Care Provider Unavaila ble Allergies No known active allergies Medications omeprazole (PriLOSEC) [address] capsule Take 1 capsule by mouth 1 (one) time each day 08/02/2021 Active D-1000 Extra Strength 25 MCG (1000 UT) tablet Take 1,000 Units by mouth 1 (one) time each day 08/03/2021 Active metFORMIN XR (GLUCOPHAGE-XR) 500 MG 24 hr tablet Take 1 tablet by mouth 1 (one) time each day 01/13/2022 Active lisinopril 20 MG tablet TAKE 1 TABLET BY MOUTH TWICE A DAY 180 tablet 1 08/25/2022 Active Active Problems Problem Noted Date Diagnosed Date Impaired fasting glucose 03/31/2022 Essential hypertension 12/06/2020 Proteinuria 12/06/2020 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 Carpal tunnel syndrome 08/03/2018 Gastritis 08/03/2018 Morbid obesity 08/03/2018 Immunizations Name Administration Dates Next Due Influenza, Quadrivalent, Preservative Free 01/30,02/14/2021,06/21/2015 Pfizer SARS-COV-2 08/29/2020,08/08/2020 Tdap 02/14/2021 Family History Medical History Relation Comments Kidney disease Child solitary kidney Heart disease Father Hypertension Father Diabetes Mother Hypertension Mother Relation Status Comments Child Father Mother Alive Social History Tobacco Use Types Packs/Day Years Used Date Smoking Tobacco: Never Smokeless Tobacco: Never Tobacco Cessation:Counseling Given: Not Answered Alcohol Use Standard Drinks/Week Comments No 0 (1 standard drink = 0.6 oz pur e alcohol) Comments Unknown Sex and Gender Information Value Date Recorded Sex Assigned at Not on file Legal Sex Female 4:46 PM EST Gender Identity Not on file Sexual Orientation Not on file Last Filed Vital Signs Vital Sign Reading Time Taken Comments Blood Pressure 130/68 04/29/2023 1:31 PM EST Pulse 86 04/29/2023 1:31 PM EST Temperature - - Respiratory Rate - - Oxygen Saturation 98% 01/09/2021 1:18 PM EDT Inhaled Oxygen Concentration - - Weight 138 kg (305 lb) 04/29/2023 1:31 PM EST Height 165.1 cm (5' 5 ) 05/18/2020 12:00 PM EST Body Mass Index 50.75 05/18/2020 12:00 PM EST Plan of Treatment Health Maintenance Due Date Last Done Comments Breast Cancer Screening 1975 Hepatitis B Vaccine (1 of 3 - 19+ 3-dose series) 1993 Colorectal Cancer Screening: Annual FOBT 2023 Colorectal Cancer Screening: Colonoscopy 2023 Colorectal Cancer Screening: Sigmoidoscopy 2023 Influenza Vaccine (#1) 2024 2, 02/14/2021, 06/21/2015 Pneumococcal Vaccine: Pediatrics (0 to 5 Years) and At-Risk Patients (6 to 64 Years) Aged Out No longer eligible b ased on patient's age to complete this topic Insurance [place]ID [place] Care Teams Otr Company Truck Driver Relationship Specialty Start Date End Date Neal Desir PCP - General Internal Medicine 04/23/22
== END 2024-07-08 12:04 | disposition left against medical advice (07) ==
PROVIDERS: Emergency Medicine; Emergency Provider Emergency Medicine; PCP Nurse Practitioner Primary Care
DX: R50.9 Fever, unspecified (principal); J02.9 Acute pharyngitis, unspecified; M54.9 Dorsalgia, unspecified
CPT/HCPCS: 0241U; 87651; 99282; 99283

== ENCOUNTER 2024-07-09 07:29 | Emergency (ER) | payer MEDICAID, SELFPAY ==
[2024-07-09 07:32] VITALS: BP 136/79; PULSE 102; RESP 20; TEMP 37.4; O2SAT 99; BMI 49.5
--- NOTE | 2024-07-09 07:39 | ED_ITS ---
HPI - General Adult General Chief complaint: Upper Respiratory Symptoms Stated complaint: sore throat Time Seen by Provider: 07/09/24 07:38 Source: patient, family, RN notes reviewed and dental assistant medical assistant Mode of arrival: ambulatory Limitations: language barrier History of Present Illness ED Provider: Lulu Esparza PA-C HPI narrative: This is a 49-year-old Montenegrin-speaking female, with past medical history of congenital solitary kidney, hypertension, and prediabetic, who presents emergency department accompanied by her with concerns for sore throat since yesterday. Patient reports that she developed a sore throat starting yesterday, she has had subjective fevers and chills. She denies any cough, congestion, ear pain, chest pain, shortness of breath, abdominal pain, nausea, vomiting or diarrhea. 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 She has been taking Tylenol a 1000 mg every 4 hours as needed, last dose was had 3:00 a.m.. She was still able to drink, states difficulty with swallowing food secondary pain. Denies any other complaints or concerns at this time. MD complaint: Sore throat Onset (ago): day(s) Radiation: non-radiation Severity: moderate Quality: aching Pain Consistency: constant Relieving factors: none Exacerbating factors: none Associated symptoms: denies other symptoms Treatments prior to arrival: none Related Data Home Medications ?Medication ?Instructions ?Recorded ?Confirmed cholecalciferol (vitamin D3) 25 1 tab PO DAILY 06/08/21 06/08/21 mcg (1,000 unit) tablet (Vitamin D3) metformin 500 mg tablet,extended 500 mg PO DAILY 05/27/23 release 24 hr Previous Rx's ?Medication ?Instructions ?Recorded omeprazole 40 mg capsule,delayed 40 mg PO DAILY@0630 #60 caps 06/10/21 release acetaminophen 500 mg tablet 1,000 mg (2 x 500 mg) PO QID PRN 09/13/22 (Tylenol Extra Strength) fever or pain #14 tabs benzonatate 200 mg capsule 200 mg PO BID PRN cough #10 caps 10/25/22 gabapentin 100 mg capsule 100 mg PO BID 30 days #60 caps 06/09/23 prednisone 20 mg tablet 20 mg PO DAILY 5 days #5 tabs 06/09/23 lisinopril 20 mg tablet 20 mg PO DAILY #90 tabs 12/14/23 Allergies Allergy/AdvReac Type Severity Reaction Status Date / Time No Known Allergies Allergy Verified 07/09/24 07:34 [No Known Allergies*] Review of Systems Review of Systems: Yes all other systems are reviewed and are negative Constitutional: Constitutional: Reports as per [facility] Past Medical History Attestation statement: The following information was validated with the patient. 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 Airway is widely patent. Uvula is midline. Head: Yes normal to inspection, Yes normocephalic and Yes atraumatic Ears: hearing grossly normal bilaterally General nose exam: Normal external nose present Face and sinus: Yes normal facial exam Mouth: Normal oral and palatal mucosa present, oropharynx normal and moist mucous membranes Throat: Yes posterior oropharynx normal Eyes General: appearance normal, both eyes and all related structures Eyelids: Yes eyelids normal Conjunctivae: conjunctivae normal Sclerae: sclerae normal Pupils: Equal, round and reactive pupils present EOM: EOMs intact bilaterally Neck Neck: Yes normal visual inspection, Yes full ROM and Yes no lymphadenopathy Lymphatic: no lymphadenopathy noted Chest Chest palpation & inspection: normal inspection of the chest Resp Effort & Inspection: normal respiratory effort and able to speak in complete sentences Auscultation: clear to auscultation bilaterally, no crackles, no rales, no rhonchi and no wheezes Cardio Rate: regular rate Rhythm: regular rhythm Heart sounds: S1 normal heart sound present and S2 normal heart sound present GI Inspection: Yes normal to inspection Skin General skin exam: no rashes or lesions noted Trauma: no lacerations or abrasions Wounds: no wounds Neuro General: patient oriented x3 and moves all extremities Cranial nerves: Yes Equal, round and reactive pupils present Extrem General: Yes normal to inspection Right upper extremity: normal to inspection Left upper extremity: normal to inspection Right lower extremity: normal to inspection Left lower extremity: normal to inspection Medical Decision Making Medical Decision Making MDM Narrative: This is a 49-year-old female, with past medical history of congenital solitary kidney, hypertension, and prediabetic, who presents emergency department accompanied by her with concerns for sore throat since yesterday. On arrival, patient mildly tachycardic at 102, all other vital signs within normal limits. She is speaking in full sentences under no acute distress. Oropharynx is erythematous with bilateral tonsillar hypertrophy with exudates noted, uvula is midline. No trismus, drooling, or dysphonia. 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 Patient checked into the hospital yesterday where she had a strep swab performed, which was positive for strep pharyngitis, negative for flu, RSV, COVID. This was not identified during triage therefore repeat strep swab was obtained as well as viral swabs. Differential Diagnosis Differential Diagnoses: The differential diagnosis associated with the presentation includes See above Discharge Plan Discharge Clinical Impression: Strep pharyngitis Patient Disposition: Still a Patient Instructions: Pharyngitis (ED), Strep Throat (ED) Additional Instructions: You were seen in the ER for sore throat. You tested positive for strep pharyngitis. This is a bacterial infection that requires antibiotic treatment for. Take prescribed antibiotic as directed, finish the entire course even if your symptoms improve. Throw away your toothbrush in 48 hours. Please continue taking Tylenol, but please be advised that this should only be taken every 8 hours. Do not exceed 4 g (8 tablets in 24 hour period). Drink plenty of fluids get plenty of rest. If any new or worsening symptoms occur including but not limited to difficulties with Prescriptions: No Action cholecalciferol (vitamin D3) [Vitamin D3] 25 mcg (1,000 unit) tablet 1 tab PO DAILY omeprazole 40 mg Capsule,Delayed Release(Dr/Ec) 40 mg PO DAILY@0630 Qty: 60 0RF acetaminophen [Tylenol Extra Strength] 500 mg tablet 1,000 mg PO QID PRN (Reason: fever or pain) Qty: 14 0RF benzonatate 200 mg capsule 200 mg PO BID PRN (Reason: cough) Qty: 10 0RF gabapentin 100 mg capsule 100 mg PO BID 30 Days Qty: 60 0RF prednisone 20 mg tablet 20 mg PO DAILY 5 Days Qty: 5 0RF metformin 500 mg tablet extended release 24 hr 500 mg PO DAILY lisinopril 20 mg tablet 20 mg PO DAILY Qty: 90 3RF Print Language: Montenegrin
[2024-07-09 08:08] VITALS: BP 108/61; PULSE 92; RESP 18; TEMP 37.2; O2SAT 96; O2SAT 98
--- OUTSIDE RECORDS SUMMARY | 2024-07-09 08:08 | XMS_ITS ---
Author Organization [facility] Address [address] [place], [place] [address] [place] [address] Care Team Providers Care Business Line Manager Name Role Phone Neal Desir Primary Care Provider Ramon Oreilly Jr REASON FOR VISIT Patient presents today for a colon screening Encounters Encounter Location Date Provider Diagnosis [facility] [address] [facility] [place] [address] 10/29/2023 Ramon Cardenas Jr Plan Of Treatment No Information Progress Notes * MAGNOLIA RAOULDOB:[birth year] (49 yo F)Acc No.[id number]:10/29/2023 Progress Notes Patient:?RAOUL MERIDA Provider:?Ramon Cardenas MD :1975???Age:48 Y???Sex:Female D ate:10/29/2023 Address: [place] [facility] Pcp:Neal Desir Subjective: * Chief Complaints: * [...] MD Date:?0 10/29/2023 Generated for Dianai gamal/Shar/eTransmitting on:?07/09/2024 08:07 AM EST
--- OUTSIDE RECORDS SUMMARY | 2024-07-09 08:08 | XMS_ITS | Patient Health Record ---
Author Organization [facility] Address [address] [place] [address] Care Team Providers Care Granite Worker Name Role Phone Neal Desir Primary Care Provider Unavaila Ramon Hunt Jr Unavailable Reason For Referral Referring Provider First Name WILIAN Referring Provider Last Name GINO N.P. Referred Organization [facility] Referred Provider Ramon Cardenas Jr Referred Address [address] [place] [address], [address],[place], [place],[address], Referred Provider Specialty Gastroentero logy Referral Priority Routine Encounters Encounter Location Date Provider Diagnosis [facility] [address] [place] [address] 10/29/2023 Ramon Cardenas Jr Plan Of Treatment No Information Insurance Providers Payer Name Payer Address Payer Phone Subscriber Number Group Number Insured Name Patient Relationship to Insured Coverage Start Date Coverage End Date [place] [address] [place] [phone] [id number] RAOUL MERIDA Self - patient is the insured
--- OUTSIDE RECORDS SUMMARY | 2024-07-09 08:08 | XMS_ITS | Clinical Summary ---
Author Organization [facility] Address [address] [place] [address] Phone Care Team Providers Care Grain Weigher Name Role Phone Thang, Neal Primary Care [...] [place] Care Teams Grain Weigher Relationship Specialty Start Date End Date Neal Desir PCP - General Internal Medicine 04/23/22
--- OUTSIDE RECORDS SUMMARY | 2024-07-09 08:08 | XMS_ITS ---
Author Organization [facility] Address [address] [place] [address] Care Team Providers Care Od Grinder Operator Name Role Phone ThangNeal Primary Care Provider Ramon Oreilly Jr [phone] REASON FOR VISIT Pt no showed Encounters Encounter Location Date Provider Diagnosis [facility] [address] [place] [address] 10/29/2023 Ramon Cardenas Jr Plan Of Treatment No Information Progress Notes * RAOUL MERIDADOB:[birth year] (48 yo F)Acc No.[id number]:10/29/2023 Patient:?RAOUL MERIDA :1975???Age:48 Y???Sex:Female Address:[address], [place], [address] * true * Date:? Generated for Tammie yeung/Shar/eTransmitting on:?07/09/2024 08:07 AM EST
[2024-07-09 08:17] LABS: IDNOW Serial# 58CA691E; Strep A Nucleic Acid Positive (Negative)
[2024-07-09 08:54] LABS: Influenza A PCR NEGATIVE (Negative); Influenza B PCR NEGATIVE (Negative); Resp Syncy Virus RNA Qual PCR NEGATIVE (Negative); SARS COV2 PCR INHOUSE NEGATIVE (Negative)
[2024-07-09] MEDS: Penicillin V Potassium 250 MG TABLET 500 MG PO (09:39)
[2024-07-09 09:43] VITALS: BP 108/61; PULSE 92; RESP 18; TEMP 37.2; O2SAT 96
== END 2024-07-09 09:44 | disposition home or self-care (01) ==
PROVIDERS: Physician Assistant Medical; Emergency Provider Emergency Medicine; PCP Nurse Practitioner Primary Care
DX: J02.0 Streptococcal pharyngitis (principal); Z03.818 Encounter for observation for suspected exposure to other biological agents ruled out
CPT/HCPCS: 0241U; 87651; 99283; 99284

== ENCOUNTER 2024-10-24 08:17 | Outpatient (REF) | payer MEDICAID, SELFPAY ==
--- OUTSIDE RECORDS SUMMARY | 2024-10-24 08:28 | XMS_ITS | Clinical Summary ---
Author Organization [employer] Address [address] [place] [address] Care Team Providers Care Labor And Delivery Registered Nurse Name Role Phone Wilian Christian Primary Care Provider [phone] Allergies No known active allergies Medications lisinopril [...] for pain/swelling 100 g 1 4 Active metFORMIN XR (Glucophage-XR) 500 MG 24 hr tabletIndications :Type 2 diabetes mellitus with microalbuminuria, without long-term current use of insulin ([facility]) TAKE 1 TABLET BY MOUTH TWICE A DAY WITH FOOD 180 tablet 1 4 Active omeprazole (PriLOSEC) [address] capsuleIndication s:Heartburn TAKE 1 CAPSULE BY MOUTH EVERY DAY BEFORE A MEAL 90 capsule 5 Active Active Problems Problem Noted Date Diagnosed Date Impaired fasting glucose 03/31/2022 Proteinuria 12/06/2020 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 Carpal tunnel syndrome 08/03/2018 Gastritis 08/03/2018 Morbid obesity 08/03/2018 Essential hypertension 06/21/2015 Encounters Date Type Department Care Team Description 10/24/2024 Refill [facility] MEDICINE [address] [place] [address] Wilian Christian ANP Type 2 diabetes mellitus with microalbuminuria, without long-term current use of insulin ([facility]); Heartburn 07/26/2024 Refill [facility] [address] [facility] [place] [address] Wilian Christian ANP Heartburn from Last 3 Months Immunizations Immunization Administration Dates Next Due Influenza injectable quadriv [...] drink = 0.6 oz pur e alcohol) Housing Stability Answer Date Recorded What is your housing situation today? I have tung artliff 10/07/[address] you li [...] FOBT 1975 HIV Screening 1975 Sigmoidoscopy 1975 Disability Screening 1974 Diabetes: Foot Exam 01/27/1984 Eye Exam 01/27/1984 Alcohol/Substance Use Screening 1986 Family Planning (PISQ) 1989 Hepatitis C Screening 01/27/1992 Hepatitis B Vaccines (1 of 3 - 19+ 3-dose series) 1993 Pneumococcal Vaccine: 50+ Years (1 of 2 - PCV) 1993 Diabetes: Urine Protein Screening 02/15/2022 02/15/2021 Lipid Panel 02/15/2022 02/15/2021 Diabetes: Hemoglobin A1C 10/24/2022 022, 01/13/2022, 02/15/2021 Depression Screening 04/25/2023 04/25/2022, 04/25/20 22 COVID-19 Vaccine ( season) 2024 06/07/2021, 06/07/2021, 08/29/2020, Additional history exists Zoster Vaccines (1 of 2) 01/27/2024 Tobacco Screening 07/08/2024 07/09/2023 SDOH Screening 10/06/2024 10/07/2023 Influenza Vaccine (Season Ended) 2025 07/09/2023, 01/30/2022, 02/14/2021, Additional history exists Pap Smear 01/30/2025 01/30/2022, 01/30/2022 Mammogram 05/02/2026 [...] patient's age to complete this topic Meningococcal B Vaccine Aged Out No l onger eligible based on patient's age to complete [...] Procedure Name Priority Date/Time Associated Diagnosis Comments BI MAMMOGRAM SCREENING TOMOSYNTHESIS BILATERAL Routine 05/02/2024 9:10 AM EST POCT GLYCOSYLATED HEMOGLOBIN (HGB A1C) Routine 04/25/2022 11:12 AM EST Type 2 diabetes mellitus with microalbuminuria, without long-term current use of insulin ([facility]) THINPREP IMAGING PAP AND HPV MRNA E6/E7 WITH REFLEX TO HPV 16,18/45 Routine 01/30/2022 11:35 AM EDT HM PAP/HPV Routine 01/30/2022 ALBUMIN, RANDOM URINE W/CREATININE Routine 02/15/2021 9:10 AM EDT LIPID PANEL, STANDARD Routine 02/15/2021 9:10 AM EDT from Last 3 Months or Most Recently Relevant to Health Maintenance Results * BI Mammogram Screening Tomosynthesis Bilateral (05/02/2024 9:10 AM EST) Anatomical Region Laterality Modality Breast Bilateral Mammography 05/02/2024 9:10 AM EST Narrative 05/14/2024 10:55 AM EST [facility]'s [address] [place] [address] Mammography Report Signed with Modesta Patient: Simi Razo MR#: [id number] 508 : 1975 Acct:[id number] Age/Sex: 49 / F ADM Date: 05/02/24 Loc: MAMMO Attending Dr: Wilian Christian NP Ordering Physician: WILIAN CHRISTIAN NP Results: 2Benign Dominic smith Date of Service: 05/02/24 Follow Up: 1 Year From Orig ina Mammogram Procedure(s): MM tomosynthesis screening BI Accession Number(s): [id number] cc: WILIAN CHRISTIAN NP ADDENDUM ADDENDUM #1 ADDENDUM: The current mammogram has been reviewed and remains BI-RADS as follows OVERALL ASSESSMENT: BI-RADS 2 - Benign Findings RECOMMENDATION: 1 year F/U Electronically signed by: Nikki Chow DO 05/30/2024 03:11 PM EST RP Addendum Dictated By: Nikki Chow DO Addendum Signed By: <Electronically signed by Nikki Chow DO in OV> 05/30/24 1511 Addendum Cosigned By: [...] Chow DO in OV> 05/14/24 1052 DD/ 0910 TD/TT: 05/02/24 09 Carrier Washer: Procedure Note Donotuseinterpreter, Image - 05/30/20[facility] [address] [place] [address] Mammography Report Signed with Addareli Patient: Simi RazoMR#: [id number] 508 : 1975Acct:[id number] Age/Sex: 49 / FADM Date: 05/02/24 Loc: REBEKA Attending Dr: Wilian Christian NP Ordering Physician: WILIAN CHRISTIAN NPResults: 2Benign Dominic smith Date of Service: 05/02/24Follow Up: 1 Year From Orig inal Mammogram Procedure(s): MM tomosynthesis screening BI Accession Number(s): [id number] cc: WILIAN CHRISTIAN NP ADDENDUM ADDENDUM #1 ADDENDUM: The current mammogram has been reviewed and remains BI-RADS as follows OVERALL ASSESSMENT: BI-RADS 2 - Benign Findings RECOMMENDATION: 1 year F/U Electronically signed by: Nikki Chow DO 05/30/2024 03:11 PM EST RP Addendum Dictated By: Nikki Chow DO Addendum [...] Nikki Chow DO 05/14/2024 10:52 AM EST RP Dictated By: Nikki Chow DO Signed By: <Electronically signed by Nikki Chow DO in OV> 05/14/24 1052 DD/ 9 TD/TT: 05/02/24927 Carrier Washer: On license of [facility] [place] PROCEDURES Edited Result - Final * (ABNORMAL) POCT glycosylated hemoglobin (Hb A1C) docked device (04/25/2022 11:12 AM EST) Hemoglobin A1C 6.3(A) 4.0 - 6.0 % QC Media Lot # [id number] Lot# Expiration Date Blood Venous blood specimen / Unknown 04/25/2022 11:12 AM EST Wilian BHANDARI POINT OF CARE TEST ENTER/EDIT OR DERABLES Final Result * THINPREP TIS PAP AND HPV mRNA E6/E7 WITH REFLEX TO HPV 16,18/45 (01/30/2022 11:35 AM EDT) Clinical Information: None given [facility] COMMENT SEE COMMENT [facility] Comment: EXPLANATORY NOTE: The Pap is a screening test for cervical cancer. It is not a diagnostic test and is subject to false negative and false positive results. It is most reliable when a satisfactory sample, regularly obtained, is submitted with relevant clinical findings and history, and when the Pap result is evaluated along with historic and current clinical information. COMMENT: This Pap test has been evaluated with computer assisted technology. [facility] Campaign Worker : SEE COMMENT [facility] Comment: KF, CT(ASCP) CT screening location: [place] [address] HPV nRNA E6/E7 Not Detected Not Detected [facility] Comment: Methodology: Grants Assistant-Mediated Amplification This assay detects E6/E7 viral messenger RNA (mRNA) from 14 high-risk HPV types (16,18,31,33,35,39,45,51,52,56,58,59,66,68). Cervical sources are required for HPV testing. If a vaginal source from a patient who has had a total hysterectomy with removal of cervix was submitted, please contact the testing laboratory for alternative testing options. For additional information, please refer to http://education.Simple Tithe/faq/OFA791d2 (This link if provided for information/ educational [...] component absent. 01/30/2022 11:3 5 AM EDT us Zuleika Altamirano CNM LAB PATHOLOGY ORDERABLES Final Result [facility] * Hm Pap Smear (01/30/2022) Pathologist [facility] HM Pap smear Performed Historical Provider HEALTH MAINTENANCE Final Result * (ABNORMAL) ALBUMIN, RANDOM URINE W/CREATININE (02/15/2021 9:10 AM EDT) [facility] Microalbumin Urine 5.6 See Note: mg/dL [facility] Comment: Reference Range: Reference Range Not established Microalb/Creat Ratio 32(H) <30 mcg/mg creat [facility] Comment: The ADA defines abnormalities in albumin excretion as follows: Albuminuria Category Result (mcg/mg creatinine) Normal to Mildly increased <30 Moderately increased 30-299 Severely increased > OR = 300 The ADA recommends that at least two of three specimens collected within a 3-6 month period be abnormal before considering a patient to be within a diagnostic category. Creatinine, Urine 177 20 - 275 mg/dL [facility] 02/15/2021 9:10 AM EDT Neal Desir MD LAB URINE ORDERABLES Final R esult [facility] [address] * LIPID PANEL, STANDARD (02/15/2021 9:10 AM EDT) [facility] Chol/HDLC Ratio 3.3 <5.0 (calc) [facility] Cholesterol, Total 172 <200 mg/dL [facility] HDL Cholesterol 52 > OR = 50 mg/dL [facility] LDL Cholesterol 97 mg/dL (calc) [facility] Comment: Reference range: <100 Desirable range <100 mg/dL for primary prevention; <70 mg/dL for patients with CHD or diabetic patients with > or = 2 CHD risk factors. LDL-C is now calculated using the Nataliia calculation, which is a validated novel method providing better accuracy than the Friedewald equation in the estimation of LDL-C. Jc COLLINS et al. MARY. 2013;310(19): 3515-5352 (http://education.Tengion.com/faq/VBT397) Non-HDL Cholesterol 120 <130 mg/dL (calc) [facility] Comment: For patients with diabetes plus 1 major ASCVD risk factor, treating to a non-HDL-C goal of <100 mg/dL (LDL-C of <70 mg/dL) is considered a therapeutic option. Triglycerides 132 <150 mg/dL [facility] 02/15/2021 9:10 AM EDT us Neal Desir MD LAB BLOOD ORDERABLES Final R esult [facility] [address] from Last 3 Months or Most Recently Relevant to Health Maintenance Insurance Care Teams Labor And Delivery Registered Nurse Relationship Specialty Start Date End Date Wilian Christian ANP [address] [place] [address] PCP - General Family Medicine 04/02/22
[2024-10-24 11:37] LABS: Creatinine Urine 185.86 mg/dL; Protein/Creatinine Ratio, Ur 0.21 (<0.2); Total Protein Urine Random 39 mg/dL (<12)
[2024-10-24 11:47] LABS: Anion Gap 11 (12-20); Blood Urea Nitrogen 9 mg/dL (9-16); Carbon Dioxide 25 mmol/L (22-29); Chloride 107 mmol/L (96-108); Estimated Glomerular Filt Rate > 60; Potassium 4.3 mmol/L (3.3-5.1); Sodium 139 mmol/L (135-145)
== END 2024-10-24 08:18 | disposition home or self-care (01) ==
LOC: HO.HHCL 08:17
PROVIDERS: PCP Nurse Practitioner Primary Care; Visit Provider Internal Medicine Nephrology
DX: I10 Essential (primary) hypertension (principal); Q60.0 Renal agenesis, unilateral
CPT/HCPCS: 36415; 80051; 82565; 82570; 84156; 84520

== ENCOUNTER 2024-11-18 13:46 | Outpatient (AMB) | payer MEDICAID, SELFPAY ==
--- OUTSIDE RECORDS SUMMARY | 2023-10-29 10:55 | XMS_ITS ---
Author Organization [facility] Address [address] [place], [place] [address] [address] Care Team Providers Care Manager Document Control Name Role Phone Neal Desir Primary Care Provider Ramon Oreilly Jr REASON FOR VISIT Patient presents today for a colon screening Encounters Encounter Location Date Provider Diagnosis [facility] [address] [facility] [place] [address] 10/29/2023 Ramon Cardenas Jr Plan Of Treatment No Information Progress Notes * RAOUL MERIDADOB:[birth year] (49 yo F)Acc No.[id number]:10/29/2023 Progress Notes Patient: RAOUL HERRERA Provider: Mary Cardenas MD :1975 A ge:48 Y S ex:Female Date:10/29/2023 Address: [place] [facility] Pcp:Neal Desir Subjective: * Chief Complaints: * [...] MD Date: 0 10/29/2023 Generated for Tammie yeung/Shar/eTedwardsmitting on: 11/18/2024 01:48 PM EDT
--- OUTSIDE RECORDS SUMMARY | 2024-11-18 13:49 | XMS_ITS | Clinical Summary ---
Author Organization [employer] Address [address] [place] [address] Care Team Providers Care Starting Gate Driver Name Role Phone Wilian Christian Primary Care Provider [phone] Allergies No known active allergies Medications lisinopril 20 MG tablet Take 1 tablet by mouth 1 (one) time each day. 01/21/20 22 Active Blood Pressure kitIndications:P rimary hypertension 1 kit in the morning. 1 kit 04/30/20 22 Active estradiol (Estrace) 0.1 MG/GM vaginal creamIndications :Dyspareunia in female insert (1G) by vaginal route nightly x 2 weeks then 1 g vaginally twice a week thereafter 42.5 g 1 07/09/19 24 Active Diclofenac Sodium (Voltaren) 1 % gelIndications:B ilateral carpal tunnel syndrome Apply 2g up to 4x/d to affected joint(s) for pain/swelling 100 g 1 07/09/19 24 Active metFORMIN XR (Glucophage-XR) 500 MG 24 hr tabletIndication s:Type 2 diabetes mellitus with microalbuminuria , without long-term current use of insulin (CMS/HCC) TAKE 1 TABLET BY MOUTH TWICE A DAY WITH FOOD 180 tablet 10/25/19 25 Active omeprazole (PriLOSEC) [address] Velazquez ns:Heartburn TAKE 1 CAPSULE BY MOUTH EVERY DAY BEFORE A MEAL 90 capsule 10/25/19 25 Active metFORMIN XR (Glucophage-XR) 500 MG 24 hr tabletIndication s:Type 2 diabetes mellitus with microalbuminuria , without long-term current use of insulin (CMS/HCC) TAKE 1 TABLET BY MOUTH TWICE A DAY WITH FOOD 180 tablet 1 12/20/ 025 Discontinued omeprazole (PriLOSEC) [address] Velazquez ns:Heartburn TAKE 1 CAPSULE BY MOUTH EVERY DAY BEFORE A MEAL 90 capsule 07/27/19 025 Discontinued Active Problems Problem Noted Date Diagnosed Date Impaired fasting glucose 03/31/2022 Proteinuria 12/06/2020 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 Carpal tunnel syndrome 08/03/2018 Gastritis 08/03/2018 Morbid obesity 08/03/2018 Essential hypertension 06/21/2015 Encounters Date Type Department Care Team Description 10/24/2024 Refill [facility] MEDICINE [address] [place] [address] Wilian Christian, THONY Type 2 diabetes mellitus with microalbuminuria, without long-term current use of insulin ([facility]); Heartburn from Last 3 Months Immunizations Immunization [...] Years (1 of 2 - PCV) 1993 Lipid Panel 02/15/2022 02/15/2021 Diabetes: Hemoglobin A1C 10/24/2022 022, 01/13/2022, 02/15/2021 Depression Screening 04/25/2023 04/25/2022, 04/25/20 COVID-19 Vaccine ( season) 2024 06/07/2021, 06/07/2021, 08/29/2020, Additional history exists Zoster Vaccines (1 of 2) 01/27/2024 Tobacco Screening 07/08/2024 07/09/2023 SDOH Screening 10/06/2024 10/07/2023 Influenza Vaccine (#1) 2025 , 01/30/2022, 02/14/2021, Additional history exists Pap Smear 01/30/2025 01/30/2022, 01/30/2022 Diabetes: Urine Protein Screening 10/24/2025 10/24/2024, 02/15/2021 Mammogram 05/02/2026 05/02/2024, 04/05, 04/16/2021, Additional history [...] Procedure Name Priority Date/Time Associated Diagnosis Comments CREATININE, SERUM Routine 10/24/2024 8:3 4 AM EDT UREA NITROGEN (BUN) Routine 10/24/2024 8 :34 AM EDT ELECTROLYTE PANEL Routine 10/24/2024 8:3 4 AM EDT PROTEIN CREATININE RATIO, URINE Routine 10/24/2024 8:34 AM EDT BI MAMMOGRAM SCREENING TOMOSYNTHESIS BILATERAL Routine 05/02/2024 9:10 AM EST POCT GLYCOSYLATED HEMOGLOBIN (HGB A1C) Routine 04/25/2022 11:12 AM EST Type 2 diabetes mellitus with microalbuminuria, without long-term current use of insulin ([facility]) THINPREP IMAGING PAP AND HPV MRNA E6/E7 WITH REFLEX TO HPV 16,18/45 Routine 01/30/2022 11:35 AM EDT HM PAP/HPV Routine 01/30/2022 LIPID PANEL, STANDARD Routine 02/15/2021 9:10 AM EDT from Last 3 Months or Most Recently Relevant to Health Maintenance Results * (ABNORMAL) Protein Creatinine Ratio, Urine (10/24/2024 8:34 AM EDT) Creatinine, Urine 185.86 mg/dL [facility] Protein, Total, Random Urine 39(H) <12 mg/dL [facility] Protein/Creati nine Ratio, Ur 0.21(H) <0.2 [facility] Comment:The spot urine prote in:creatinine ratio may increase to 0.3during normal . 10/24/2024 8:34 AM EDT 10/24/2024 10:56 AM EDT us Generic External Data Provider LAB URINE ORDERAB LES Final Result [facility] [address] [place] [phone] * Creatinine, Serum (10/24/2024 8:34 AM EDT) Creatinine, Serum 0.72 0.5 - 1.4 mg/dL [facility] Estimated Glomerular Filt Rate >60 [facility] Comment:Chronic Kidney Disea se: Estimated GFR < 60 mL/min/1.00n3Irmdty Kidney Disease: Estimated GFR < 15 mL/min/1.73m2 10/24/2024 8:34 AM EDT 10/24/2024 11:22 AM EDT us Generic External Data Provider LAB BLOOD ORDERAB LES Final Result Performing Organization Address [facility] Co de Phone Number [facility] [address] [place] [phone] * BUN (Blood Urea Nitrogen) (10/24/2024 8:34 AM EDT) Urea Nitrogen (BUN) 9 9 - 16 mg/dL [facility] 10/24/2024 8:34 AM EDT 10/24/2024 11:22 AM EDT Generic External Data Provider LAB BLOOD ORDERAB LES Final Result Performing Organization Address [facility] Co de Phone Number [facility] [address] [place] [phone] * (ABNORMAL) Electrolyte Panel (10/24/2024 8:34 AM EDT) Sodium 139 135 - 145 mmol/L [facility] Potassium 4.3 3.3 - 5.1 mmol/L [facility] Chloride 107 96 - 108 mmol/L [facility] Carbon Dioxide 25 22 - 29 mmol/L [facility] Anion Gap 11(L) 12 - 20 [facility] 10/24/2024 8:34 AM EDT 10/24/2024 11:22 AM EDT Generic External Data Provider LAB BLOOD ORDERAB LES Final Result Performing Organization Address [facility] Co de Phone Number [facility] [address] [place] [phone] * BI Mammogram Screening Tomosynthesis Bilateral (05/02/2024 9:10 AM EST) Anatomical Region Laterality Modality Breast Bilateral Mammography 05/02/2024 9:10 AM EST Narrative 05/14/2024 10:55 AM EST [facility]'s [address] [place] [address] Mammography Report Signed with Addenda Patient: Simi Razo MR#: [id number] 508 : 1975 Acct:[id number] Age/Sex: 49 / F ADM Date: 05/02/24 Loc: HO.MAMMO Attending Dr: Wilian Christian NP Ordering Physician: WILIAN CHRISTIAN NP Results: 2Benign Fin dings Date of Service: 05/02/24 Follow Up: 1 Year From Orig ina Mammogram Procedure(s): MM tomosynthesis screening BI Accession Number(s): [id number] cc: WILIAN CHRISTIAN NP ADDENDUM ADDENDUM #1 [...] OV> 05/14/24 1052 DD/ 0910 TD/TT: 05/02/24 0928 Adolescent Psychiatrist: Procedure Note Donotuseinterpreter, Image - 05/30/2024 [facility] [address] [place] [address] Mammography Report Signed with Addenda Patient: Simi RazoMR#: [id number] 508 : 1975Acct:[id number] Age/Sex: 49 / FADM Date: 05/02/24 Loc: HO.MAMMO Attending Dr: Wilian Christian NP Ordering Physician: WILIAN CHRISTIAN NPResults: 2Bkendall smith Date of Service: 05/02/24Follow Up: 1 Year From Orig ina Mammogram Procedure(s): MM tomosynthesis screening BI Accession Number(s): [id number] cc: WILIAN CHRISTIAN NP ADDENDUM ADDENDUM #1 [...] OV> 05/14/24 1052 DD/ 9 TD/TT: 05/02/24927 Adolescent Psychiatrist: us Wilian Christian ANP IMG BI PROCEDURES Edited Result - Final * (ABNORMAL) POCT glycosylated hemoglobin (Hb A1C) docked device (04/25/2022 11:12 AM EST) Hemoglobin A1C 6.3(A) 4.0 - 6.0 % QC Media Lot # [id number] Lot# Expiration Date [id number] Blood Venous blood specimen / Unknown 04/25/2022 [...] with computer assisted technology. [facility] Parts Representative : SEE COMMENT [facility] Comment: KF, CT(ASCP) CT screening location: [place] [address] HPV nRNA E6/E7 Not Detected Not Detected [facility] Comment: Methodology: Loom Setter-Mediated Amplification This assay detects E6/E7 viral messenger RNA (mRNA) from 14 high-risk HPV types (16,18,31,33,35,39,45,51,52,56,58,59,66,68). Cervical sources are required for HPV testing. If a vaginal source from a patient who has had a total hysterectomy with removal of cervix was submitted, please contact the testing laboratory for alternative testing options. For additional information, please refer to http://education.DimensionU (formerly Tabula Digita)/faq/DFW888l3 (This link if provided for information/ educational [...] * Pap Smear (01/30/2022) Pap smear Performed Historical Provider HEALTH MAINTENANCE Final Result * LIPID PANEL, STANDARD (02/15/2021 9:10 AM EDT) Chol/HDLC Ratio 3.3 <5.0 (calc) [facility] Cholesterol, Total 172 <200 mg/dL [facility] HDL Cholesterol 52 > OR = 50 mg/dL [facility] LDL Cholesterol 97 mg/dL (calc) [facility] Comment: Reference range: <100 Desirable range <100 mg/dL for primary prevention; <70 mg/dL for patients with CHD or diabetic patients with > or = 2 CHD risk factors. LDL-C is now calculated using the Jc-Magalie calculation, which is a validated novel method providing better accuracy than the Friedewald equation in the estimation of LDL-C. Jc COLLINS et al. MARY. 2013;310(19): 2385-7860 (http://education.[employer]que[employer] LLC.Pathfire/faq/AIL490) Non-HDL Cholesterol 120 <130 mg/dL (calc) [facility] Comment: For patients with diabetes plus 1 major ASCVD risk factor, treating to a non-HDL-C goal of <100 mg/dL (LDL-C of <70 mg/dL) is considered a therapeutic option. Triglycerides 132 <150 mg/dL [facility] 02/15/2021 9:10 AM EDT Neal Desir MD LAB BLOOD ORDERABLES Final R esult [facility] [address] from Last 3 Months or Most Recently Relevant to Health Maintenance Insurance [facility] Care Teams Starting Gate Driver Relationship Specialty Start Date End Date Wilian Christian ANP [address] [place] [phone] PCP - General Family Medicine 04/02/22
--- OUTSIDE RECORDS SUMMARY | 2024-11-18 13:49 | XMS_ITS | Clinical Summary ---
Author Organization [facility] Address [address] [place] [phone] Phone Care Team Providers Care Mechanic Field Service Name Role Phone ThangNeal Primary Care Provider Unavaila ble Allergies No [...] 08/03/2018 Gastritis 08/03/2018 Morbid obesity 08/03/2018 Immunizations Immunization Administration Dates Next Due Influenza, Quadrivalent, Preservative [...] Colonoscopy 2023 Colorectal Cancer Screening: Sigmoidoscopy 2023 Pneumococcal Vaccine: 50+ Ye ars (1 of 1 - PCV) 01/27/2024 Influenza Vaccine (#1) 2025 2, 02/14/2021, 06/21/2015 Insurance Medicaid [place] Care Teams Mechanic Field Service Relationship Specialty Start Date End Date Neal Desir PCP - General Internal Medicine 04/23/22
--- NOTE | 2024-11-18 13:58 | HO.NEPHOV ---
Vital Signs 11/18/24 14:01 Height 5 ft 5 in Weight 297 lb BMI 49.4 BP 100/70 Blood Pressure Location Rt brachial Position Sitting Pulse 88 Pulse Source Pulse Oximeter Pulse Oximetry (%) 98 Oxygen Delivery Method Room Air Intake Visit Reasons: F/U Conf Customer Experience Strategist Required: Yes Customer Experience Strategist Language: Engineering Drawings Checker Services: Customer Experience Strategist Present Customer Experience Strategist Name: Stephon [phone] Accompanied by: Self / Same As Patient Allergies No Known Allergies (No Known Allergies*) Allergy (Verified 11/18/24 14:01) HPI Comments Details: Simi was seen in follow up for proteinuria, congenital solitary kidney and hypertension. She is compliant with medications. She has not lost a lot of weight. Her blood pressure has been at goal. She is tolerating lisinopril well without any side effects. She does not have any significant proteinuria by recent lab work. Her renal functions are stable. She recently had a imaging of the abdomen which showed unremarkable solitary kidney. All other systems have been reviewed and were negative. 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 Review of Systems Const All systems reviewed & are unremarkable except as noted in HPI and below Physical Exam Vital Signs: Last Vital Signs Pulse 88 11/18/24 14:01 BP 100/70 11/18/24 14:01 Pulse Ox 98 11/18/24 14:01 Oxygen Delivery Method Room Air 11/18/24 14:01 BMI result Body Mass Index 49.4 Const General: comfortable and no acute distress Orientation/consciousness: patient oriented x3 HEENT Head: Yes normocephalic Mouth: Normal oral and palatal mucosa present Eyes EOM: EOMs intact bilaterally Neck Neck: Yes supple Resp Auscultation: clear to auscultation bilaterally Cardio Jugular venous distension: no JVD Rate: regular rate GI Palpation (GI): Soft to palpation Auscultation: normal bowel sounds General: Yes no CVA tenderness Back/Spine/Pelvis Back: no CVA tenderness Skin General skin exam: no rashes or lesions noted Neuro General: patient oriented x3 and moves all extremities Extrem General: Yes no pedal edema Results Reviewed Nephrology Results: Sodium, (135-145) 139 mmol/L 10/24/24 Potassium, (3.3-5.1) 4.3 mmol/L 10/24/24 Chloride, (96-108) 107 mmol/L 10/24/24 Carbon Dioxide, (22-29) 25 mmol/L 10/24/24 BUN, (9-16) 9 mg/dL 10/24/24 Creatinine, (0.5-1.4) 0.72 mg/dL 10/24/24 Urine Creatinine 185.86 mg/dL 10/24/24 Protein/Creatinin Ratio, (<0.2) 0.21 H 10/24/24 Assessment & Plan Assessment & Plan (1) HTN (hypertension): Code(s): I10 - Essential (primary) hypertension Category: Medical Qualifiers: Hypertension type: primary hypertension Qualified Code(s): I10 - Essential (primary) hypertension (2) Solitary kidney, congenital: Code(s): Q60.0 - Renal agenesis, unilateral Category: Medical (3) Proteinuria: Code(s): R80.9 - Proteinuria, unspecified Category: Medical Qualifiers: Proteinuria type: other Qualified Code(s): R80.8 - Other proteinuria Plan 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 Her eldest son(Has 2 boys) also has congenital absence of right kidney. She had proteinuria in the past which is well controlled on current dose of lisinopril. Her last urine study did not detect any significant protein. Her blood pressure is at goal. Her electrolytes are acceptable with a stable renal function. She needs to lose weight and continue to have lifestyle modification. I did not make any changes today. Follow-up blood work and urine studies ordered. Follow-up appointment given. Orders: Orders Protein Creatinine Ratio, Ur 6 Months I10 - Essential (primary) hypertension Electrolytes 6 Months I10 - Essential (primary) hypertension Blood Urea Nitrogen 6 Months I10 - Essential (primary) hypertension Creatinine 6 Months I10 - Essential (primary) hypertension Coding Level of Care Code Est Pt Level 4 (90975) Diagnoses Primary hypertension I10 Hypertension type: primary hypertension Solitary kidney, congenital Q60.0 Other proteinuria R80.8 Proteinuria type: other
[2024-11-18 14:01] VITALS: BP 100/70; PULSE 88; O2SAT 98; BMI 49.4
== END 2024-11-18 14:13 | disposition home or self-care (01) ==
LOC: HO.HKA 13:47
PROVIDERS: PCP Nurse Practitioner Primary Care; Visit Provider Internal Medicine Nephrology
DX: I10 Essential (primary) hypertension (principal); Q60.0 Renal agenesis, unilateral; R80.8 Other proteinuria
CPT/HCPCS: 99214

== ENCOUNTER → 2024-11-18 13:46 | Outpatient (BNVA) | payer MEDICAID, SELFPAY | PROVIDERS: PCP Nurse Practitioner Primary Care; Visit Provider Internal Medicine Nephrology | DX: I10 Essential (primary) hypertension (principal); Q60.0 Renal agenesis, unilateral; R80.8 Other proteinuria | CPT/HCPCS: 99212 ==

== ENCOUNTER 2024-12-12 14:35 | Outpatient (REF) | payer MEDICAID, SELFPAY ==
--- OUTSIDE RECORDS SUMMARY | 2023-10-29 10:55 | XMS_ITS ---
Author Organization [facility] Address [address] [facility] [place] [address] Care Team Providers Care Human Resource Intern Name Role Phone Neal Desir Primary Care Provider Ramon Oreilly Jr REASON FOR VISIT Patient presents today for a colon screening Encounters Encounter Location Date Provider Diagnosis [facility] [address] [facility] [place] [address] 10/29/2023 Ramon Cardenas Jr Plan Of Treatment No Information Progress Notes * RAOUL MERIDADOB:[birth year] (49 yo F)Acc No.[id number]:10/29/2023 Progress Notes Patient: RAOUL HERRERA Provider: Mary Cardenas MD :1975 A ge:48 Y S ex:Female Date:10/29/2023 Address[place] [facility] Pcp:Neal Desir Subjective: * Chief Complaints: * [...] 0 10/29/2023 Generated for Tammie yeung/Shar/eTedwardsmitting on: 0 12/12/2024 02:01 PM EDT
--- NOTE | ~2024-12-12 | XR_ITS ---
EXAMINATION: XR LUMBOSACRAL SPINE CLINICAL INFORMATION: acute right sided low back pain COMPARISON: Correlated to CT abdomen and pelvis dated May 2023. TECHNIQUE: AP and lateral views FINDINGS: Endplate sclerosis decreased intervertebral disc height and marginal 5 formation at L5-S1. Grade 1 anterolisthesis L5-S1. No acute cortical disruption. No lytic or blastic lesions. 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 Electronically signed by: Alessandro Stanton MD 12/12/2024 03:00 PM EDT
--- OUTSIDE RECORDS SUMMARY | 2024-12-12 15:01 | XMS_ITS | Clinical Summary ---
Author Organization [employer] Address [address] [place] [address] Care Team Providers Care Steam Table Attendant Name Role Phone Wilian Christian Primary Care Provider [phone] Allergies No known active allergies Medications lisinopril [...] microalbuminuria, without long-term current use of insulin ([facility]) TAKE 1 TABLET BY MOUTH TWICE A DAY WITH FOOD 180 tablet 5 Active omeprazole (PriLOSEC) [address] capsuleIndication s:Heartburn TAKE 1 CAPSULE BY MOUTH EVERY DAY BEFORE A MEAL 90 capsule 5 Active Active Problems Problem Noted Date Diagnosed Date Impaired fasting glucose 03/31/2022 Proteinuria 12/06/2020 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 Carpal tunnel syndrome 08/03/2018 Gastritis 08/03/2018 Morbid obesity 08/03/2018 Essential hypertension 06/21/2015 Encounters Date Type Department Care Team Description 12/12/2024 2:40 PM EDT Office Visit [facility] [address] [place] [address] Flank pain (Primary Dx); Acute right-sided low back pain without sciatica 10/24/2024 Refill [facility] [address] [place] [address] Wilian Christian ANP Type 2 diabetes mellitus with microalbuminuria, without long-term current use of insulin ([facility]); Heartburn from Last 3 Months Immunizations Immunization [...] Sign Reading Time Taken Comments Blood Pressure 137/85 12/12/2024 1:56 PM EDT Pulse 78 12/12/2024 1:56 PM EDT Temperature 36.4 C (97.5 F) 12/12/2024 1:56 PM EDT Respiratory Rate 20 12/12/2024 1:56 PM EDT Oxygen Saturation 98% 12/12/2024 1:56 PM EDT Inhaled Oxygen Concentration - - Weight 134 kg (296 lb) 12/12/2024 1:56 PM EDT Height 165.1 cm (5' 5 ) 12/12/2024 1:56 PM EDT Body Mass Index 49.26 12/12/2024 1:56 PM EDT Plan of Treatment Health Maintenance Due Date [...] Procedure Name Priority Date/Time Associated Diagnosis Comments POCT URINALYSIS DIPSTICK Routine 12/12/2024 2:42 PM EDT Acute right-sided low back pain without sciatica CREATININE, SERUM Routine 10/24/2024 8:3 4 AM [...] microalbuminuria, without long-term current use of insulin ([facility]) THINPREP IMAGING PAP AND HPV MRNA E6/E7 WITH REFLEX TO HPV 16,18/45 Routine 01/30/2022 11:35 AM EDT HM PAP/HPV Routine 01/30/2022 LIPID PANEL, STANDARD Routine 02/15/2021 9:10 AM EDT from Last 3 Months or Most Recently Relevant to Health Maintenance Results * POCT Urinalysis (12/12/2024 2:42 PM EDT) Color, UA Yellow Clarity, UA Clear Glucose, UA Negative Bilirubin, UA Negative Ketones, UA Negative Spec Grav, UA 1.025 Blood, UA Negative Negative, None Detected pH, UA 6.0 Protein, UA Many Comment:30mg/dL Urobilinogen, UA 0.2 Leukocytes, UA Negative Negative, Rare, Trace Nitrite, UA Negative Negative, None Detected Appearance, UA yellow QC Media Lot # [id number] Lot# Expiration Date 53,126 Urine 12/12/2024 2:42 PM EDT us Ranulfo Patel MD POINT OF CARE TEST ENTER/EDIT OR DERABLES Final Result * (ABNORMAL) Protein Creatinine Ratio, Urine (10/24/2024 8:34 AM EDT) Creatinine, Urine 185.86 mg/dL [facility] Protein, Total, Random Urine 39(H) <12 mg/dL [facility] Protein/Creati nine Ratio, Ur 0.21(H) <0.2 [facility] Comment:The spot urine prote in:creatinine ratio may increase to 0.3during normal . 10/24/2024 8:34 AM EDT 10/24/2024 10:56 AM EDT us Generic External Data Provider LAB URINE ORDERAB LES Final Result Performing Organization Address [facility] Co de Phone Number [facility] [address] [place] [phone] * Creatinine, Serum (10/24/2024 8:34 AM EDT) Creatinine, Serum 0.72 0.5 - 1.4 mg/dL [facility] Estimated Glomerular Filt Rate >60 [facility] Comment:Chronic Kidney Disea se: Estimated GFR < 60 mL/min/1.76r8Gttpid Kidney Disease: Estimated GFR < 15 mL/min/1.73m2 10/24/2024 8:34 AM EDT 10/24/2024 11:22 AM EDT us Generic External Data Provider LAB BLOOD ORDERAB LES Final Result Performing Organization Address [facility] Co de Phone Number [facility] [address] [place] [phone] * BUN (Blood Urea Nitrogen) (10/24/2024 8:34 AM EDT) Urea Nitrogen (BUN) 9 9 - 16 mg/dL [facility] 10/24/2024 8:34 AM EDT 10/24/2024 11:22 AM EDT Generic External Data Provider LAB BLOOD ORDERAB LES Final Result Performing Organization Address [facility] Co de Phone Number [facility] [address] [place] [address] [phone] * (ABNORMAL) Electrolyte Panel (10/24/2024 8:34 AM EDT) Sodium 139 135 - 145 mmol/L [facility] Potassium 4.3 3.3 - 5.1 mmol/L [facility] Chloride 107 96 - 108 mmol/L [facility] Carbon Dioxide 25 22 - 29 mmol/L [facility] Anion Gap 11(L) 12 - 20 [facility] 10/24/2024 8:34 AM EDT 10/24/2024 11:22 AM EDT Generic External Data Provider LAB BLOOD ORDERAB LES Final Result Performing Organization Address [facility] Co de Phone Number [facility] [address] [place] [phone] * BI Mammogram Screening Tomosynthesis Bilateral (05/02/2024 9:10 AM EST) Anatomical Region Laterality Modality Breast Bilateral Mammography 05/02/2024 9:10 AM EST Narrative 05/14/2024 10:55 AM EST [facility] [address] [place] [address] Mammography Report Signed with Addenda Patient: Simi Razo MR#: [id number] : 1975 Acct:[id number] Age/Sex: 49 / F ADM Date: 05/02/24 Loc: HO.MAMMO Attending Dr: Wilian Christian NP Ordering Physician: WILIAN CHRISTIAN NP Results: 2Benign Dominic smith Date of Service: 05/02/24 Follow Up: 1 Year From Orig inal Mammogram Procedure(s): MM tomosynthesis screening BI Accession Number(s): [id number] cc: WILIAN CHRISTIAN NP ADDENDUM ADDENDUM #1 [...] OV> 05/14/24 1052 DD/ 9 TD/TT: 05/02/24927 Milk Driver: Procedure Note Donotuseinterpreter, Image - 05/30/2024 [facility] [address] [place] [address] [place] [address] Mammography Report Signed with Addenda Patient: Simi RazoMR#: [id number] : 1975Acct:[id number] Age/Sex: 49 / FADM Date: 05/02/24 Loc: HOArchanaMAMMO Attending Dr: Wilian Christian NP Ordering Physician: WILIAN CHRISTIAN NPResults: 2Benign Dominic smith Date of Service: 05/02/24Follow Up: 1 Year From Orig inal Mammogram Procedure(s): MM tomosynthesis screening BI Accession Number(s): [id number] cc: WILIAN CHRISTIAN NP ADDENDUM ADDENDUM #1 [...] 05/14/24 1052 DD/ 0910 TD/TT: 05/02/24 09 Milk Driver: us Wilian Christian ANP IMG BI PROCEDURES Edited Result - Final * (ABNORMAL) POCT glycosylated hemoglobin (Hb A1C) docked device (04/25/2022 11:12 AM EST) Hemoglobin A1C 6.3(A) 4.0 - 6.0 % QC Media Lot # [id number] Lot# Expiration Date 55,424 Blood Venous blood specimen / Unknown 04/25/2022 [...] been evaluated with computer assisted technology. [facility] Pigment Pumper : SEE COMMENT [facility] Comment: KF, CT(ASCP) CT screening location: [place] [address] HPV nRNA E6/E7 Not Detected Not Detected [facility] Comment: Methodology: Buoy Tender-Mediated Amplification This assay detects E6/E7 viral messenger RNA (mRNA) from 14 high-risk HPV types (16,18,31,33,35,39,45,51,52,56,58,59,66,68). Cervical sources are required for HPV testing. If a vaginal source from a patient who has had a total hysterectomy with removal of cervix was submitted, please contact the testing laboratory for alternative testing options. For additional information, please refer to http://education.RadioShack/faq/RUC415l8 (This link if provided for information/ educational [...] absent. 01/30/2022 11:3 5 AM EDT Zule[facility] VELÁSQUEZ LAB PATHOLOGY ORDERABLES Final Result [facility] * Hm Pap Smear (01/30/2022) Pap smear Performed Historical Provider HEALTH MAINTENANCE Final Result * LIPID PANEL, STANDARD (02/15/2021 9:10 AM EDT) Chol/HDLC Ratio 3.3 <5.0 (calc) [facility] Cholesterol, Total 172 <200 mg/dL [facility] HDL Cholesterol 52 > OR = 50 mg/dL [facility] LDL Cholesterol 97 mg/dL (calc) [facility] Comment: Reference range: <100 Desirable range <100 mg/dL for primary prevention; <70 mg/dL for patients with CHD or diabetic patients with > or = 2 CHD risk factors. LDL-C is now calculated using the Jc-Magalie calculation, which is a validated novel method providing better accuracy than the Friedewald equation in the estimation of LDL-C. Jc COLLINS et al. MARY. 2013;310(19): 0212-2728 (http://education.[employer].SlimTrader/faq/CKV768) Non-HDL Cholesterol 120 <130 mg/dL (calc) [facility] Comment: For patients with diabetes plus 1 major ASCVD risk factor, treating to a non-HDL-C goal of <100 mg/dL (LDL-C of <70 mg/dL) is considered a therapeutic option. Triglycerides 132 <150 mg/dL [facility] 02/15/2021 9:10 AM EDT us Neal Desir MD LAB BLOOD ORDERABLES Final R esult [facility] [address] [place] [address], from Last 3 Months or Most Recently Relevant to Health Maintenance Insurance [employer] C3 Care Teams Steam Table Attendant Relationship Specialty Start Date End Date Wilian Christian ANP [address] [place] [address] [place] [address] PCP - General Family Medicine 04/02/22
--- OUTSIDE RECORDS SUMMARY | 2024-12-12 15:01 | XMS_ITS | Clinical Summary ---
Author Organization [facility] Address [address] [place] [address] Phone Care Team Providers Care Sports Umpire Name Role Phone Neal Desir Primary Care Provider Unavaila ble Allergies No [...] Insurance Medicaid [place] Medicaid [place] Care Teams Sports Umpire Relationship Specialty Start Date End Date Neal Desir PCP - General Internal Medicine 04/23/22
[2024-12-12 16:49] LABS: Appearance Urine Clear; Glucose Urine UA Negative (Negative); PH 5.5 (5.0-9.0); Specific Gravity - Urine 1.020 (1.005-1.025)
== END 2024-12-12 14:36 | disposition home or self-care (01) ==
LOC: HO.HHCX 14:35
PROVIDERS: Visit Provider Internal Medicine Geriatric Medicine
DX: M54.50 Low back pain, unspecified (principal); R10.9 Unspecified abdominal pain
CPT/HCPCS: 72100; 81001

== ENCOUNTER → 2024-12-12 14:36 | Outpatient (BNV) | payer MEDICAID, SELFPAY | PROVIDERS: Visit Provider Radiology Diagnostic Radiology | DX: M47.817 Spondylosis without myelopathy or radiculopathy, lumbosacral region (principal) | CPT/HCPCS: 72100 ==

== ENCOUNTER 2025-02-18 09:55 | Outpatient (REF) | payer MEDICAID, SELFPAY ==
--- OUTSIDE RECORDS SUMMARY | 2023-10-29 10:55 | XMS_ITS ---
Author Organization [facility] Address [address] [place], [place] [address] [address] Care Team Providers Care Raftsman Name Role Phone Neal Desir Primary Care Provider Ramon Oreilly Jr [phone] REASON FOR VISIT Patient presents today for a colon screening Encounters Encounter Location Date Provider Diagnosis [facility] [address] [place] [facility] [place] [address] 10/29/2023 Ramon Cardenas Jr Plan Of Treatment No Information Progress Notes * RAOUL MERIDADOB:[birth year] (50 yo F)Acc No.[id number]:10/29/2023 Progress Notes Patient: RAOUL HERRERA Provider: Mary Cardenas MD :1975 A ge:48 Y S ex:Female Date:10/29/2023 Address: [place] [id number] Pcp:Neal Desir Subjective: * Chief Complaints: * 1 . Patient presents today for a colon screening. * Medical History: Objective: * Vitals: Assessment: Plan: * Treatment: * * The named appointment provid er may or may not be the originator of this progress note, and it is not deemed complete until electronically signed by the appointment provider. Sign off status: Pending * Provider: Mary Cardenas MD Date: 0 10/29/2023 Generated for Tammie yeung/Shar/eTransmitting on: 1 08:54 AM EDT
--- NOTE | ~2025-02-18 | XR_ITS ---
EXAMINATION: XR KNEE, RIGHT CLINICAL INFORMATION: ongoing R knee pain exacerbated by movement COMPARISON: None available. TECHNIQUE: Four views of the right knee. FINDINGS: No visible acute fracture, dislocation or suspicious bony lesion. No significant effusion. Alignment is anatomic. Joint spaces are maintained. No abnormal soft tissue calcification. XR/XR knee RT 3V IMPRESSION: No radiographic evidence of acute fracture or dislocation.. Electronically signed by: Elvin Zavala MD 02/20/2025 07:35 AM EDT
--- OUTSIDE RECORDS SUMMARY | 2025-02-18 09:00 | XMS_ITS | Encounter Summary ---
Author Organization [employer] Address [address] [place] [address] [address] [place] [address] Care Team Providers Care Credit Products Officer Name Role Phone Michela Donaldson THONY Primary Care Provider [phone] Reason for Referral * Consultation (Routine) - Pending Review Specialty Diagnoses / Procedures Referred By Yamel velasquez Referred To Contact Physical Therapy Diagnoses Chronic pain of right knee Osteoarthritis of lumbar spine, unspecified spinal osteoarthritis complication status Ervin Eubanks CNP [address] [place] [address] Phone: tel: fax: Referral ID Status Reason Start Date Expiration Date Visits Requested Visits Authorized [id number] Pending Review Specialty Services Required 02/18/2026 1 1 Reason for Visit * Reason Comments Knee Pain Encounter Details Date Type Department Care Team (Latest Contact Info) Description 02/18/2025 9:00 AM EDT Office Visit [facility] [address] [address] Ervin Eubanks CNP [address] [place] [address] Chronic pain of right knee (Primary Dx); Bilateral carpal tunnel syndrome; Osteoarthritis of lumbar spine, unspecified spinal osteoarthritis complication status Social History Tobacco Use Types Packs/Day Years Used Date Smoking Tobacco: Never Passive Smoke Exposure: Never Smokeless Tobacco: Never Alcohol Use Standard Drinks/Week Comments Never 0 [...] Female 03/03/2022 10:29 AM EDT Sexual Orientation Straight 02/18/2025 8: 53 AM EDT documented as of this encounter Last Filed Vital Signs Vital Sign Reading Time Taken Comments Blood Pressure 153/90 02/18/2025 9:05 AM EDT Pulse 83 02/18/2025 9:05 AM EDT Temperature 36.9 C (98.5 F) 02/18/2025 9:05 AM EDT Respiratory Rate 21 02/18/2025 9:05 AM EDT Oxygen Saturation 98% 02/18/2025 9:05 AM EDT Inhaled Oxygen Concentration - - Weight 135 kg (296 lb 9.6 oz) 02/18/2025 9:05 AM EDT Height 165.1 cm (5' 5 ) 02/18/2025 9:05 AM EDT Body Mass Index 49.36 02/18/2025 9:05 AM EDT documented in this encounter Progress Notes * Erivn Eubanks CNP - 02/18/2025 9:00 AM EDT Subjective Patient ID: Simi Razo is a 50 y.o. female who presents for Knee Pain. She reports she moved about a week ago with her and she didn't notice the knee pain at thistime. She reports that Thursday her R knee started hurting. Reports the pain as pressure. Reports pain is worse with movement. Reports she can bear weight on the knee. Reports she tried heat and cold therapy and tylenol. Denies swelling, redness, or excessive heat. Knee Pain The incident occurred 3 to 5 days ago. There was no injury mechanism. Review of Systems Objective Vitals: 02/18/25 0905 BP: (!) 153/90 Pulse: 83 Resp: 21 Temp: 98.5 ??F (36.9 ??C) SpO2: 98% Physical Exam Musculoskeletal: Right knee: Crepitus present. No swelling, deformity, effusion, erythema or bony tenderness. Normalrange of motion. Tenderness present over the medial joint line. No lateral joint line, MCL, LCL, ACL, PCL or patellar tendon tenderness. No LCL laxity, MCL laxity, ACL laxity or PCL laxity. Normal pulse. Left knee: Normal. Assessment/Plan Problem List Items Addressed This Visit Other Visit Diagnoses Chronic pain of right knee - Primary Relevant Medications Diclofenac Sodium (Voltaren) 1 % gel Other Relevant Orders XR Knee 3 Views Right Pain consistent with DJD, no signs of instability, dislocation, or fracture. Will obtain XR Will refer to PT Sent prescription for topical diclofenac Pt has tylenol on hand Referral to PT documented in this encounter Plan of Treatment Scheduled Orders Name Type Priority Associated Diagnoses Orde r Schedule XR Knee 3 Views Right Imaging Routine Chronic pain of right knee Expected: 02/18/2025, Expires: 02/18/2026 Scheduled Referrals Name Type Priority Associated Diagnoses Orde r Schedule Referral to Physical Therapy Outpatient Referral Routine Chronic pain of right knee Osteoarthritis of lumbar spine, unspecified spinal osteoarthritis complication status Expected: 02/18/2025 (Approximate), Expires: 02/18/2026 documented as of this encounter Visit Diagnoses Diagnosis Chronic pain of right knee- Primary Bilateral carpal tunnel syndrome Carpal tunnel syndrome Osteoarthritis of lumbar spine, unspecified spinal osteoarthritis complication status documented in this encounter Care Teams Credit Products Officer Relationship Specialty Start Date End Date Michela Donaldson ANP [address] [place] [address] PCP - General Family Medicine 04/02/22 documented as of this encounter
--- OUTSIDE RECORDS SUMMARY | 2025-02-18 09:59 | XMS_ITS | Clinical Summary ---
Author Organization [employer] Address [address] [place] [address] Care Team Providers Care Tennis Court Attendant Name Role Phone Wilian Christian Primary Care Provider [phone] Allergies No known active allergies Medications lisinopril 20 MG tablet Take 1 tablet by mouth 1 (one) time each day. 01/21/20 22 Active Blood Pressure kitIndications: Primary hypertension 1 kit in the morning. 1 kit 04/30/20 22 Active estradiol (Estrace) 0.1 MG/GM vaginal creamIndication s:Dyspareunia in female insert (1G) by vaginal route nightly x 2 weeks then 1 g vaginally twice a week thereafter 42.5 g 1 07/09/19 24 Active metFORMIN XR (Glucophage-XR) 500 MG 24 hr tabletIndicatio ns:Type 2 diabetes mellitus with microalbuminuri a, without long-term current use of insulin (HCC) TAKE 1 TABLET BY MOUTH TWICE A DAY WITH FOOD 180 tablet 10/25/19 25 Active omeprazole (PriLOSEC) [address] capsuleIndicati ons:Heartburn TAKE 1 CAPSULE BY MOUTH EVERY DAY BEFORE A MEAL 90 capsule 01/31/20 25 Active Diclofenac Sodium (Voltaren) 1 % gelIndications: Bilateral carpal tunnel syndrome Apply 2g up to 4x/d to affected joint(s) for pain/swelling 100 g 1 02/19/20 25 Active Diclofenac Sodium (Voltaren) 1 % gelIndications: Bilateral carpal tunnel syndrome Apply 2g up to 4x/d to affected joint(s) for pain/swelling 100 g 1 07/09/19 24 025 Discontinued(R eorder (will not trigger notification to Pharmacy)) omeprazole (PriLOSEC) [address] Menard ons:Heartburn TAKE 1 CAPSULE BY MOUTH EVERY DAY BEFORE A MEAL 90 capsule 10/25/19 25 025 Discontinued Active Problems Problem Noted Date Diagnosed Date Impaired fasting glucose 03/31/2022 Proteinuria 12/06/2020 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 Carpal tunnel syndrome 08/03/2018 Gastritis 08/03/2018 Morbid obesity (CMS/HCC) 08/03/2018 Essential hypertension 06/21/2015 Encounters Date Type Department Care Team Description 02/18/2025 9:00 AM EDT Office Visit [facility] [address] [place] [id number] Ervin Eubanks CNP Chronic pain of right knee (Primary Dx); Bilateral carpal tunnel syndrome; Osteoarthritis of lumbar spine, unspecified spinal osteoarthritis complication status 02/18/2025 Travel 01/29/2025 Refill [facility] [address] [place] [phone] Wilian Christian ANP Heartburn 01/23/2025 Telephone [facility] [address] [place] [phone] Wilian Christian ANP OUTREACH 12/12/2024 2:40 PM EDT Office Visit [facility] [address] [address] Ranulfo Patel MD Flank pain (Primary Dx); Acute right-sided low back pain without sciatica 12/12/2024 Results Follow-Up [facility] [address] [place] [address] Ervin Eubanks CNP XR Lumbar Spine 2-3 Views from Last 3 Months Immunizations Immunization Administration [...] the past 12 months, has t he [employer], gas, oil or water company threatened to shut off services in your home? No 10/07/2023 Depression Answer Date Recorded Patient Health Questionnaire-2 Score 0 04/25/2022 Comments No Sex and Gender Information Value Date Recorded Sex Assigned at Female 03/03/2022 10:29 AM EDT Legal Sex Female 10:29 AM EDT Gender Identity Female 03/03/2022 10:29 AM EDT Sexual Orientation Straight 02/18/2025 8: 53 AM EDT Last Filed Vital Signs Vital [...] Mass Index 49.36 02/18/2025 9:05 AM EDT Plan of Treatment Health Maintenance Due [...] 02/15/2021 Depression Screening 04/25/2023 04/25/2022, 04/25/20 22 Zoster Vaccines (1 of 2) 01/27/2024 Tobacco Screening 07/08/2024 07/09/2023 SDOH Screening 10/06/2024 10/07/2023 COVID-19 Vaccine ( season) 2025 06/07/2021, 06/07/2021, 08/29/2020, Additional history exists Influenza Vaccine (#1) 2025 , 01/30/2022, 02/14/2021, [...] Acute right-sided low back pain without sciatica URINALYSIS, COMPLETE, WITH REFLEX TO CULTURE Routine 12/12/2024 2:39 PM EDT Flank pain XR LUMBAR SPINE 2-3 VIEWS Routine 12/12/2024 2:01 PM EDT Acute right-sided low back pain without sciatica PROTEIN CREATININE RATIO, URINE Routine 10/24/2024 8:34 AM EDT BI MAMMOGRAM SCREENING TOMOSYNTHESIS BILATERAL Routine 05/02/2024 9:10 AM EST POCT GLYCOSYLATED HEMOGLOBIN (HGB A1C) Routine 04/25/2022 11:12 AM EST Type 2 diabetes mellitus with microalbuminuria, without long-term current use of insulin ([facility]) THINPREP IMAGING PAP AND HPV [...] Urine 12/12/2024 2:42 PM EDT us Ranulfo Name MD POINT OF CARE TEST ENTER/EDIT OR DERABLES Final Result * Urinalysis, Complete, with Reflex to Culture (12/12/2024 2:39 PM EDT) Color Urine Yellow [facility] Appearance Urine Clear [facility] PH 5.5 5.0 - 9.0 [facility] Glucose Urine UA Negative Negative mg/dL [facility] Urine Blood Negative Negative [facility] Specific [place] - Urine 1.020 1.005 - 1.025 [facility] Urine Protein Trace Neg-Trace mg/dL [facility] Urine Ketones Negative Negative mg/dL [facility] Nitrite Urine Negative Negative [facility] Leukocyte Esterase Urine Negative Negative [facility] RBC Urine 0-2 0 - 2 /HPF [facility] Urine WBC 0-5 0 - 5 /HPF [facility] Urine Squamous Epithelial Cell 0-2 0 - 2 /HPF [facility] Urine Bacteria None Seen None Seen [facility] Hyaline Casts, Urine 0-2 0 - 2 /LPF [facility] Urine 12/12/2024 2:39 PM EDT 12/12/2024 4:38 PM EDT Narrative [facility] - 12/12/2024 4:58 PM EDT Urine, Clean Catch us Ranulfo Patel MD LAB URINE ORDERABLES Final Resul t [facility] [address] [place] [address] [phone] * XR Lumbar Spine 2-3 Views (12/12/2024 2:01 PM EDT) Anatomical Region Laterality Modality Spine, L-spine Radiographic Kim ging 12/12/2024 2:01 PM EDT Narrative 12/12/2024 3:03 PM EDT [address] [address] XRay Report Signed Patient: Simi Razo MR#: [id number] 508 : 1975 Acct:[id number] Age/Sex: 49 / F ADM Date: 12/12/24 [facility]: Ranulfo Patel MD Ordering Physician: Ranulfo Patel MD Date of Service: 12/12/24 Procedure(s): XR lumbar spine 2-3V Accession Number(s): [id number] cc: Ranulfo Patel MD EXAMINATION: XR LUMBOSACRAL SPINE CLINICAL INFORMATION: acute right sided low back pain COMPARISON: Correlated to CT abdomen and pelvis dated May 2023. TECHNIQUE: AP and lateral views FINDINGS: Endplate sclerosis decreased intervertebral disc height and marginal 5 formation at L5-S1. Grade 1 anterolisthesis L5-S1. No acute cortical disruption. No lytic or blastic lesions. 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 Electronically signed by: Alessandro Stanton MD 12/12/2024 03:00 PM EDT Dictated By: Alessandro Braun MD Signed By: <Electronically signed by Alessandro Adame MD in OV> 12/12/24 1500 DD/ 1401 TD/TT: 12/12/24 1420 Entry Level Automotive Technician: Procedure Note Donotuseinterpreter, Image - 12/12/[address] [address] XRay Report Signed Patient: Simi RazoMR#: [id number] : 1975Acct:[id number] Age/Sex: 49 / FADM Date: 12/12/24 [facility]: Ranulfo Patel MD Ordering Physician: Ranulfo Patel MD Date of Service: 12/12/24 Procedure(s): XR lumbar spine 2-3V Accession Number(s): [id number] cc: Ranulfo Patel MD EXAMINATION: XR LUMBOSACRAL SPINE CLINICAL INFORMATION: acute right sided low back pain COMPARISON: Correlated to CT abdomen and pelvis dated May 2023. TECHNIQUE: AP and lateral views FINDINGS: Endplate sclerosis decreased intervertebral disc height and marginal 5 formation at L5-S1. Grade 1 anterolisthesis L5-S1. No acute cortical disruption. No lytic or blastic lesions. 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 Electronically signed by: Alessandro Stanton MD 12/12/2024 03:00 PM EDT RP Dictated By: Alessandro Braun MD Signed By: <Electronically signed by Alessandro Adame MDin OV> 12/12/24 1500 DD/ 1401 TD/TT: 12/12/24 1420 Entry Level Automotive Technician: Ranulfo Patel MD IMG XR PROCEDURES Final Result * (ABNORMAL) Protein Creatinine Ratio, Urine (10/24/2024 8:34 AM EDT) Creatinine, Urine 185.86 mg/dL [facility] Protein, Total, Random Urine 39(H) <12 mg/dL [facility] Protein/Creati nine Ratio, Ur 0.21(H) <0.2 [facility] Comment:The spot urine prote in:creatinine ratio may increase to 0.3during normal . 10/24/2024 8:34 AM EDT 10/24/2024 10:56 AM EDT us Generic External Data Provider LAB URINE ORDERAB LES Final Result [facility] [address] [place] [address] [phone] * BI Mammogram Screening Tomosynthesis Bilateral (05/02/2024 9:10 AM EST) Anatomical Region Laterality Modality Breast Bilateral Mammography 05/02/2024 9:10 AM EST Narrative 05/14/2024 10:55 AM EST [facility] [address] [place] [address] Mammography Report Signed with Modesta Patient: Simi Razo MR#: [id number] 508 : 1975 Acct:[id number] Age/Sex: 49 / F ADM Date: 05/02/24 Loc: HO.MAMMO Attending Dr: Wilian Christian NP Ordering Physician: WILIAN CHRISTIAN NP Results: 2Benign Dominic dingkailash Date of Service: 05/02/24 Follow Up: 1 Year From Orig inal Mammogram Procedure(s): MM tomosynthesis screening BI Accession Number(s): [id number] cc: WILIAN CHRISTIAN NP ADDENDUM ADDENDUM #1 [...] by: Nikki Chow DO 05/14/2024 10:52 AM [facility] Dictated By: Nikki Chow DO Signed By: <Electronically signed by Nikki Chow DO in OV> 05/14/24 1052 DD/ 0910 TD/TT: 05/02/24 0928 Entry Level Automotive Technician: Procedure Note Donotuseinterpreter, Image - 05/30/2024 [facility] [address] [place], [place] [address] Mammography Report Signed with Modesta Patient: Simi RazoMR#: [id number] 508 : 1975Acct:[id number] Age/Sex: 49 / FADM Date: 05/02/24 Loc: [facility] Attending Dr: Wilian Christian NP Ordering Physician: WILIAN CHRISTIAN NPResults: 2Benign Dominic smith Date of Service: 05/02/24Follow Up: 1 Year From Orig inal Mammogram Procedure(s): MM tomosynthesis screening BI Accession Number(s): [id number] cc: WILIAN CHRISTIAN NP ADDENDUM ADDENDUM #1 [...] OV> 05/14/24 1052 DD/ 9 TD/TT: 05/02/24927 Entry Level Automotive Technician: us Wilian GLEASON BI PROCEDURES Edited Result - Final * (ABNORMAL) POCT glycosylated hemoglobin (Hb A1C) docked device (04/25/2022 11:12 AM EST) Hemoglobin A1C 6.3(A) 4.0 - 6.0 % QC Media Lot # [id number] Lot# Expiration Date [id number] Blood Venous blood specimen / Unknown 04/25/2022 11:12 AM EST [facility] POINT OF CARE TEST ENTER/EDIT OR DERABLES [...] with computer assisted technology. [facility] Plisse Machine Operator : SEE COMMENT [facility] Comment: KF CT(ASCP) CT screening location: [place] [address] HPV nRNA E6/E7 Not Detected Not Detected [facility] Comment: Methodology: Thermal Cutting Machine Operator-Mediated Amplification This assay detects E6/E7 viral messenger RNA (mRNA) from 14 high-risk HPV types (16,18,31,33,35,39,45,51,52,56,58,59,66,68). Cervical sources are required for HPV testing. If a vaginal source from a patient who has had a total hysterectomy with removal of cervix was submitted, please contact the testing laboratory for alternative testing options. For additional information, please refer to http://education.[employer]/faq/HHF504h9 (This link if provided for information/ educational [...] LEGACY LABS * Hm Pap Smear (01/30/2022) HM Pap smear Performed us Historical Provider HEALTH [...] equation in the estimation of LDL-C. Jc SS et al. MARY. 2013;310(19): 6976-4519 (http://education.[employer].com/faq/GRR264) Non-HDL Cholesterol 120 <130 mg/dL (calc) [facility] Comment: For patients with diabetes plus 1 major ASCVD risk factor, treating to a non-HDL-C goal of <100 mg/dL (LDL-C of <70 mg/dL) is considered a therapeutic option. Triglycerides 132 <150 mg/dL [facility] 02/15/2021 9:10 AM EDT us Neal Desir MD LAB BLOOD ORDERABLES Final R esult Performing Organization Address City/[facility]/ZIP Co de Phone Number [facility] [address] from Last 3 Months or Most Recently Relevant to Health Maintenance Insurance [facility] C3 Care Teams Tennis Court Attendant Relationship Specialty Start Date End Date Wilian Christian ANP [address] [place] [address] [place] [address] PCP - General Family Medicine 04/02/22
--- OUTSIDE RECORDS SUMMARY | 2025-02-18 09:59 | XMS_ITS | Patient Health Record ---
Author Organization [facility] Address [address] [place] [address] Care Team Providers Care Workers' Compensation Claims Supervisor Name Role Phone Neal Desir Primary Care Provider Ramon Oreilly Jr Unavailable Reason For Referral No Information Plan Of Treatment No Information Insurance Providers Payer Name Payer Address Payer Phone Subscriber Number Group Number Insured Name Patient Relationship to Insured Coverage Start Date Coverage End Date [place] H [address] [place] [phone] [id number] RAOUL MERIDA Self - patient is the insured
--- OUTSIDE RECORDS SUMMARY | 2025-02-18 09:59 | XMS_ITS | Clinical Summary ---
Author Organization [facility] Address [address] [place] [address] Phone Care Team Providers Care Blood Bank Laboratory Professional Name Role Phone Neal Desir Primary Care [...] Insurance Medicaid [place] Medicaid [place] Care Teams Blood Bank Laboratory Professional Relationship Specialty Start Date End Date Neal Desir PCP - General Internal Medicine 04/23/22
--- OUTSIDE RECORDS SUMMARY | 2025-02-18 09:59 | XMS_ITS | Encounter Summary ---
Author Organization [employer] Address [address] [place] [address] Care Team Providers Care Reproduction Machine Loader Name Role Phone Michela Donaldson Primary Care Provider [phone] Encounter Details Date Type Department Care Team (Latest Contact Info) Description 02/18/2025 Travel Social History Tobacco Use Types Packs/Day Years [...] AM EDT documented as of this encounter Plan of Treatment Not on file documented as of this encounter Visit Diagnoses Not on filedocumented in this encounter Care Teams Reproduction Machine Loader Relationship Specialty Start Date End Date Michela Donaldson ANP [address] [place] [address] PCP - General Family Medicine 04/02/22 documented as of this encounter
== END 2025-02-18 09:56 | disposition home or self-care (01) ==
LOC: HO.XRAY 09:55
DX: M25.561 Pain in right knee (principal); G89.29 Other chronic pain
CPT/HCPCS: 73562

== ENCOUNTER → 2025-02-18 09:59 | Outpatient (BNV) | payer MEDICAID, SELFPAY | PROVIDERS: Visit Provider Radiology Diagnostic Ultrasound | DX: M25.561 Pain in right knee (principal) | CPT/HCPCS: 73562 ==

== ENCOUNTER 2025-02-21 07:48 | Emergency (ER) | payer MEDICAID, SELFPAY ==
--- OUTSIDE RECORDS SUMMARY | 2023-10-29 10:55 | XMS_ITS ---
Author Organization [facility] Address [address] [place], [place] [address] [address] Care Team Providers Care Glued Wood Tester Name Role Phone Neal Desir Primary Care Provider Ramon Oreilly Jr REASON FOR VISIT Patient presents today for a colon screening Encounters Encounter Location Date Provider Diagnosis [facility] [address] [facility] [place] [address] 10/29/2023 Ramon Cardenas Jr Plan Of Treatment No Information Progress Notes * RAOUL MERIDADOB:[birth year] (50 yo F)Acc No.[id number]:10/29/2023 Progress Notes Patient: RAOUL HERRERA Provider: Mary Cardenas MD :1975 A ge:48 Y S ex:Female Date:10/29/2023 Address: [place] [facility] Pcp:Neal Desir Subjective: * Chief Complaints: * [...] 0 10/29/2023 Generated for Tammie yeung/Shar/eTedwardsmitting on: 1 01:36 PM EDT
--- NOTE | ~2025-02-21 | US_ITS ---
EXAMINATION: US TRIPLEX LOWER EXTREMITY, RIGHT CLINICAL INFORMATION: Lower extremity pain COMPARISON: None available. TECHNIQUE: Color-flow triplex imaging with spectral analysis and compression Doppler were performed on the right lower extremity. FINDINGS: Respiratory variation, normal compression and augmented flow are noted throughout the right lower extremity. The visualized common femoral vein, superficial femoral vein, profunda femoral vein, popliteal vein and posterior tibial venous segments show no evidence of deep venous thrombosis. Peroneal vein was not demonstrated. US/US venous duplex LE RT IMPRESSION: No evidence of deep venous thrombosis involving the right lower extremity. Electronically signed by: Oumar Hammond MD 02/21/2025 12:15 PM EDT
[2025-02-21 08:26] VITALS: BP 161/100; PULSE 88; RESP 18; TEMP 36.2; O2SAT 97; BMI 49.4
--- NOTE | 2025-02-21 10:39 | ED_ITS ---
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 Patient states she was moving 2 weeks ago and noticed R knee pain 2 to 3 days after the move. Patient states pain has been worsening and went to [facility] walk in clinic Sunday 02/18 for xrays. Patient reports intermittent stabbing knee pain infront of the patella with a dull ache in the posterior knee that radiates down into the posterior calf. Pain is worse when she is ambulating and when sleeping as she lays on her side and the L leg puts pressure onto the R knee. Has been taking tylenol without effect. Additionally, patient states she has had high blood pressure since pain in R knee has started with intermittent headaches. Patient reports a mild bilateral tension headache today that she reports is 5/10. Denies chest pain, SOB, visual changes, nausea, vomiting, abd pain Related Data Home Medications ?Medication ?Instructions ?Recorded ?Confirmed metformin 500 mg tablet,extended 500 mg PO DAILY 05/27 release 24 hr Previous Rx's ?Medication ?Instructions ?Recorded omeprazole 40 mg capsule,delayed 40 mg PO DAILY@0630 # 60 caps 06/10/21 release acetaminophen 500 mg tablet 1,000 mg (2 x 500 mg) PO Q ID PRN 09/13/22 (Tylenol Extra Strength) fever or pain #14 tabs lisinopril 20 mg tablet 20 mg PO DAILY #90 tabs /12/26 Allergies Allergy/AdvReac Type Severity Reaction Status Date / Time No Known Allergies (No Known Allergy Verified 02/21/25 08:29 Allergies*) Review of Systems Review of Systems: CONST: Negative for fever, body aches and chills. HENT: Negative for neck pain/stiffness, headache, congestion, sore throat, swelling. POS B/L headache EYES: Negative for discharge/pain or vision changes. RESP: Negative for cough/hemoptysis and shortness of breath. CV: Negative chest pain, difficulty breathing, palpitations. ABD: Negative pain, nausea, vomiting. : Negative increase frequency, dysuria, blood in urine or stool. MUSC: Negative for muscle aches, edema. POS R knee pain radiating to back of knee and down calf SKIN: Negative rash, lesions/sores. NEURO: Negative dizziness, weakness. [facility] Past Medical History Attestation statement: The following information was validated with the patient. Source: old records reviewed and nursing notes reviewed Medical History Pre-diabetes Kidney anomaly, congenital FH: cholecystectomy HTN (hypertension) Surgical History History of cholecystectomy Previous section Family History Family History Mother Diabetes Social History Social History Household Members: Spouse and Children Housing: Apartment Do you presently have visiting nurse or other home services: No Alcohol intake: never Patient Tobacco Use Status: Never used Tobacco Advance Directives: Yes Advance Directives on File: Yes Advance Directives Date on File: 06/11/21 service: No Current occupational status: disabled 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 HEENT: ?NC, AT. MMM. EOMI, clear conjunctiva, oropharynx clear. NECK: ?Supple without lymphadenopathy.? No stiffness or restricted ROM. HEART:? Normal rate and regular rhythm, normal S1/S1, no m/r/g LUNGS:? CTAB, moving air well. No crackles or wheezes are heard. ABDOMEN: ?Soft, nontender, nondistended with good bowel sounds heard. BACK: No CVAT, no obvious deformity. EXTREMITIES: ?Without cyanosis, clubbing or edema. R knee TTP of anterior patella and of medial aspect of knee, TTP of popliteal fossa and of R calf, homans sign negative, popliteal and pedal pulses 2+ B/L, no edema, erythema, or overlying skin changes NEUROLOGICAL: ?Grossly nonfocal. Alert and oriented, moving all 4 extremities. Observed to ambulate with normal gait. Skin: ?Warm and dry without any rash. 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 Patient states she was moving 2 weeks ago and noticed R knee pain 2 to 3 days after the move. Patient experiencing intermittent stabbing anterior and medial knee pain, dull aching pain of posterior knee that is radiating down to posterior R calf. Patient went to [facility] walk in on Sunday 02/18 and had XR R knee taken. Patient has been taking tylenol without effect. Has been experiencing elevated home pressures since knee pain started with intermittent headaches. Patient reports B/L tension headache with pressure of both temporal regions, rates pain 5/10. VS on initial observation-BP 161/100, pulse rate of 88, respiratory rate of 18, afebrile with oral temp of 97.1?, O2 saturation 97% on room air. Repeat vital signs with improved BP of 140/72. Physical exam reveals R knee TTP of anterior patella and of medial aspect of knee, TTP of popliteal fossa and of R calf, homans sign negative, popliteal and pedal pulses 2+ B/L, no edema, erythema, or overlying skin changes Patient had outpatient x-rays done on 02/18. When reviewing those x-rays are negative for fracture, dislocation or osteoarthritic changes. Due to patient having posterior knee pain, with right calf pain will obtain US venous duplex for the R extremity for evaluation of DVT or bakers cyst. US venous duplex negative for DVT. Patient is afebrile, with sharp stabbing anterior and medial knee pain, with aching of the posterior knee radiating to posterior right calf. Imaging today negative for fracture, dislocation or DVT. Patient will be discharged home with referral placed for Orthopedics for possible advanced imaging for further evaluation of right knee pain. I discussed with patient this may be knee strain verses ligamentous injury of the right knee. I counseled patient to control pain at home with Tylenol as patient is not able to take NSAIDs due to unilateral kidney. Encouraged patient to follow up with her primary care doctor to ensure resolution of pain. I counseled patient on strict return precautions. Patient well enough to go home for self-care. Patient is in agreement with the plan. Differential Diagnosis Differential Diagnoses: The differential diagnosis associated with the presentation includes DVT Downs's cyst Right knee fracture Right knee dislocation Patellofemoral syndrome Ligamentous injury ITB syndrome Admission/Observation Consideration of admission/observation: Escalation of care including admission/observation considered Lab Data MDM Lab Attestation statement: I reviewed the patient's lab results. Independent Interpretation I performed an independent interpretation of an: Plain X-Ray and Ultrasound Interpretation: I independently interpreted the XR R knee which was negative for fracture, dislocations, osteoarthritic changes, I agree with the radiologist's interpretation I independently interpreted the ultrasound of the right leg which was negative for Downs's cyst, or DVT, I agree with the radiologist's interpretation Radiology Impression Discussion of test interpretation with radiology: I have reviewed the radiologist's reading. Radiologist Impression: XR R knee FINDINGS: No visible acute fracture, dislocation or suspicious bony lesion. No significant effusion. Alignment is anatomic. Joint spaces are maintained. No abnormal soft tissue calcification. XR/XR knee RT 3V IMPRESSION: No radiographic evidence of acute fracture or dislocation.. Electronically signed by: Elvin Zavala MD 02/20/2025 07:35 AM EDT Dictated By: Elvin Zavala MD Signed By: <Electronically signed by Elvin Zavala MD in OV> 02/20/25 0735 US venous duplex of L leg FINDINGS: Respiratory variation, normal compression and augmented flow are noted throughout the right lower extremity. The visualized common femoral vein, superficial femoral vein, profunda femoral vein, popliteal vein and posterior tibial venous segments show no evidence of deep venous thrombosis. Peroneal vein was not demonstrated. US/US venous duplex LE RT IMPRESSION: No evidence of deep venous thrombosis involving the right lower extremity. Electronically signed by: Oumar Hammond MD 02/21/2025 12:15 PM EDT RP Dictated By: Oumar Hammond MD Signed By: <Electronically signed by Oumar Hammond MD in OV> 02/21/25 1215 Independent Historian Clinical information obtained from an independent historian. History obtained from or confirmed by: Spouse (Spouse at bedside corroborating history) External Record Review External record reviewed: Inpatient record, Office record and Outpatient record Prescription Management I considered prescription management with: Other (Toradol) I considered IM Toradol however patient with 1 kidney due to congenital anomaly, patient not a good candidate for NSAID Chronic Conditions Patient?s care impacted by: Hypertension and Other (Solitary kidney) Social Determinants Patient?s care significantly limited by Social Determinants of Health including: Other Social Determinant of Health Discharge Plan Discharge Clinical Impression: Pain in right knee Patient Disposition: Home, Self-Care Instructions: Knee Pain (ED) Additional Instructions: You were evaluated in the ED today due to right knee pain. The x-rays of your knee which were taken on 02/18 were negative for fracture dislocation. The ultrasound of the right leg was negative for blood clot. Your knee pain is most likely due to strain, or possible ligamentous injury. Referral to orthopedics has been placed for you to follow up with them as you may need advanced imaging for further evaluation of right knee pain. Please call their office as they will not call you. To manage pain at home continue taking 500 mg of Tylenol every 6 hours. You can ice the affected area, elevate, and rapid an Delmer bandage for light compression for management. Please follow up with your primary care doctor to ensure resolution of your pain. Please return to the emergency department if you experience fevers over 100.4?, worsening right knee pain, redness, swelling of the right leg, inability to put weight onto the right leg, or any new/worsening/concerning symptoms. Prescriptions: No Action lisinopril 20 mg tablet 20 mg PO DAILY Qty: 90 3RF omeprazole 40 mg Capsule,Delayed Release(Dr/Ec) 40 mg PO DAILY@0630 Qty: 60 0RF acetaminophen [Tylenol Extra Strength] 500 mg tablet 1,000 mg PO QID PRN (Reason: fever or pain) Qty: 14 0RF metformin 500 mg tablet extended release 24 hr 500 mg PO DAILY Referrals: [facility] Orthopedic Surgeons [Provider Group] Referral Note: R knee pain after moving. Negative XR, negative DVT study, possible ligamentous injury as pain is anterior and medial Stand Alone Forms: Work/School Release Print Language: Faroese
[2025-02-21 13:02] VITALS: BP 161/100; PULSE 88; RESP 18; TEMP 36.2; O2SAT 97
--- OUTSIDE RECORDS SUMMARY | 2025-02-21 13:36 | XMS_ITS | Patient Health Record ---
Author Organization [facility] Address [address] [place] [address] Care Team Providers Care Land Resource Specialist Name Role Phone Neal Desir Primary Care Provider Ramon Oreilly Jr Unavailable Reason For Referral No Information Plan Of Treatment No Information Insurance Providers Payer Name Payer Address Payer Phone Subscriber Number Group Number Insured Name Patient Relationship to Insured Coverage Start Date Coverage End Date [employer] [place] [address] [place] [phone] [id number] RAOUL MERIDA Self - patient is the insured
--- OUTSIDE RECORDS SUMMARY | 2025-02-21 13:36 | XMS_ITS | Clinical Summary ---
Author Organization [facility] Address [address] [facility] [place] [address] Phone Care Team Providers Care Farm Operator Name Role Phone Neal Desir Primary Care [...] Insurance [place] Care Teams Farm Operator Relationship Specialty Start Date End Date Neal Desir PCP - General Internal Medicine 04/23/22
== END 2025-02-21 13:03 | disposition home or self-care (01) ==
PROVIDERS: Emergency Provider Emergency Medicine; PCP Nurse Practitioner Primary Care
DX: M25.561 Pain in right knee (principal); I10 Essential (primary) hypertension; Q60.0 Renal agenesis, unilateral
CPT/HCPCS: 93971; 99282; 99284

== ENCOUNTER → 2025-02-21 10:53 | Outpatient (BNV) | payer MEDICAID, SELFPAY | PROVIDERS: Emergency Provider Emergency Medicine; PCP Nurse Practitioner Primary Care; Visit Provider Radiology Diagnostic Radiology | DX: M79.661 Pain in right lower leg (principal) | CPT/HCPCS: 93971 ==